=== PATIENT | male | born 1960 | race African-American/Black ===

== ENCOUNTER 2016-11-22 13:11 | Observation (INO) | payer OTHER ==
[2016-11-22] MEDS ORDERED: ASPIRIN 81 MG TABLET, CHEWABLE PO ONE (13:22)
[2016-11-22] MEDS ORDERED: IPRATROPIUM/ALBUTEROL 0.5-2.5 MG/3 ML AMPUL NEB ONE (14:08)
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
[2016-11-22 14:29] LABS: ABSOLUTE LYMPHOCYTES (AUTO) 0.8 10^3/uL (0.5-4.7); ABSOLUTE MONOCYTES (AUTO) 0.3 10^3/uL (0.1-1.4); ABSOLUTE NEUT (AUTO) 3.2 10^3/uL (1.7-8.2); BASOPHILS % (AUTO) 0.8 % (0-2); EOSINOPHILS % (AUTO) 0.6 % (0-6); HEMATOCRIT 42.1 % (37.9-51.0); HEMOGLOBIN 14.4 g/dL (13.5-17.0); HGB HCT DIFFERENCE 1.1; LYMPHOCYTES % (AUTO) 18.1 % (13-45); MEAN CORPUSCULAR HEMOGLOBIN 34.2 pg (27.0-33.4); MEAN CORPUSCULAR HGB CONC 34.1 g/dL (32.0-36.0); MEAN CORPUSCULAR VOLUME 101 fl (80-97); MONOCYTES % (AUTO) 7.1 % (3-13); RED BLOOD COUNT 4.19 10^6/uL (4.35-5.55); RED CELL DISTRIBUTION WIDTH 13.9 % (11.5-14.0); SEGMENTED NEUTROPHILS % (AUTO) 73.4 % (42-78); WHITE BLOOD COUNT 4.3 10^3/uL (4.0-10.5)
--- NOTE | 2016-11-22 14:35 | RADIOLOGY REPORT (SQ) ---
EXAM DESCRIPTION: CHEST SINGLE VIEW COMPLETED DATE/TIME: 11/22/2016 2:25 pm REASON FOR STUDY: chest pain sob COMPARISON: August 2015 EXAM PARAMETERS: NUMBER OF VIEWS: One view. TECHNIQUE: Single frontal radiographic view of the chest acquired. RADIATION DOSE: NA LIMITATIONS: None. FINDINGS: LUNGS AND PLEURA: No opacities, masses or pneumothorax. No pleural effusion. The previous ly described chronic appearing changes appears stable. MEDIASTINUM AND HILAR STRUCTURES: No masses. Contour normal. HEART AND VASCULAR STRUCTURES: Heart normal in size. Normal vasculature. BONES: No acute findings. HARDWARE: None in the chest. OTHER: No other significant finding. IMPRESSION: No significant interval change. No acute changes. Other findings as noted above TECHNICAL DOCUMENTATION: JOB ID: [id number]
[2016-11-22 14:47] LABS: ALANINE AMINOTRANSFERASE 58 U/L (21-72); ALBUMIN 4.5 g/dL (3.5-5.0); ALKALINE PHOSPHATASE 83 U/L (38-126); ANION GAP 13 (5-19); ASPARTATE AMINO TRANSFERASE 241 U/L (17-59); BILIRUBIN,DIRECT 0.6 mg/dL (0.0-0.4); BILIRUBIN,TOTAL 1.9 mg/dL (0.2-1.3); BLOOD UREA NITROGEN 6 mg/dL (7-20); CARBON DIOXIDE 31 mmol/L (22-30); CHLORIDE 92 mmol/L (98-107); CREATINE KINASE 223 U/L (55-170); CREATININE RESULT 0.63 mg/dL (0.52-1.25); GLUCOSE 72 mg/dL (75-110); POTASSIUM 4.1 mmol/L (3.6-5.0); SODIUM 136.2 mmol/L (137-145); TOTAL PROTEIN 8.8 g/dL (6.3-8.2)
[2016-11-22 15:16] LABS: TROPONIN I < 0.012 ng/mL
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
--- NOTE | 2016-11-22 19:53 | RADIOLOGY REPORT (SQ) ---
EXAM DESCRIPTION: CTA CHEST COMPLETED DATE/TIME: 11/22/2016 7:40 pm REASON FOR STUDY: chest pain shrotness of breath COMPARISON: 11/22/2016 TECHNIQUE: CT scan of the chest performed using helical scanning technique with dynamic intravenous contrast injection. Images reviewed with lung, soft tissue and bone windows. Reconstructed coronal and sagittal MPR images reviewed. Additional 3 dimensional post-processing performed to develop Maximal Intensity Projection images (MA P). All images stored on PACS. All CT scanners at this facility use dose modulation, iterative reconstruction, and/or weight based d osing when appropriate to reduce radiation dose to as low as reasonably achievable (ALARA). [facility]: Dose Right [facility]: CareDose [facility]: Dose Right [facility]: Teradose 4D [facility]: Healthcare Bluebook CONTRAST TYPE AND DOSE: contrast/concentration: Isovue 370.00 mg/ml; Total Contrast Delivered: 61.0 ml; Total Saline Delivered: 78.5 ml RENAL FUNCTION: GFR > 60. RADIATION DOSE: Up-to-date CT equipment and radiation dose reduction techniques were employed. CTDIv ol: 14.3 - 16.5 mGy. DLP: 653 mGy-cm. . LIMITATIONS: None. FINDINGS: LUNGS AND PLEURA: Stable degree of centrilobular emphysema most notably involving the uppe r lobes with is biapical pleural-parenchymal scarring. No consolidation, pleural effusion, or pneumo thorax. AORTA AND GREAT VESSELS: Atherosclerotic calcifications including coronary artery calcifications. No aneurysm or dissection. HEART: No pericardial effusion. PULMONARY ARTERIES: No emboli visualized in the main pulmonary arteries or the segmental branches. HILAR AND MEDIASTINAL STRUCTURES: No identified masses or abnormal nodes. HARDWARE: None in the chest. UPPER ABDOMEN: Hepatic steatosis. Stable nonobstructing left renal calculi. No acute findings. THYROID AND OTHER SOFT TISSUES: No masses. No adenopathy. BONES: No acute or significant finding. 3D MIPS: Confirm above findings. OTHER: No other significant finding. IMPRESSION: NO PULMONARY EMBOLI. CORONARY ARTERY DISEASE. EMPHYSEMA. ADDITIONAL CHRONIC CHANGES ABOVE. TECHNICAL DOCUMENTATION: JOB ID: [id number] Quality ID # [id number]: Final reports with documentation of one or more dose reduction techniques (e.g., Au tomated exposure control, adjustment of the mA and/or kV according to patient size, use of iterative reconstruction technique) 2010 [employer]- All Rights Reserved
--- NOTE | 2016-11-22 21:05 | EKG REPORT ---
SEVERITY:- ABNORMAL ECG - SINUS RHYTHM RIGHT ATRIAL ABNORMALITY LEFT VENTRICULAR HYPERTROPHY BORDERLINE PROLONGED QT INTERVAL : Confirmed by: Morales Hutton MD 22-Nov-2016 21:04:55
[2016-11-22] MEDS ORDERED: IPRATROPIUM/ALBUTEROL 0.5-2.5 MG/3 ML AMPUL NEB PRN (21:55)
[2016-11-22] MEDS ORDERED: NITROGLYCERIN 0.4 MG/TAB 25 TAB/BOTTLE SL PRN (21:56)
--- NOTE | 2016-11-22 22:57 | PDOC H&P ---
History of Present Illness Admission Date/PCP: 11/22/16 21:42 BRITNI CORAZON Patient complains of: Chest pain, Shortness of breath History of Present Illness: GURJIT LOUIS is a 56 year old male known to my practice who presented to the office as walk in but directed to ED due to complain of intermittent chest pain and worsening difficulty with breathing over last 1 week. Patient related his symptoms to exertion. He continue to smoke about 1PPD and drink alcohol excessively. His initial assessment in the ED was remarkable elevated total CK, alcohol and CTA showing emphysematous changes and coronary calcification. In view of his presentation and findings patient was advised hospitalization for further evaluation and management for possible ACS in view of the coronary calcification on CTA. Past Medical History Cardiac Medical History: Reports: Hypertension Denies: Pulmonary Embolism, Heart Murmur Pulmonary Medical History: Reports: Pneumonia Denies: Tuberculosis Neurological Medical History: Reports: Seizures - ETOH Withdrawals Psychiatric Medical History: Reports: Depression Past Surgical History Past Surgical History: Reports: Appendectomy, Orthopedic Surgery - arm surgery Social History Smoking Status: Current Every Day Smoker Cigarettes Packs Per Day: 30 Cigars Per Day: 0 Pipes Per Day: 0 Number of Years Smokin Last Time Smoked: today Frequency of Alcohol Use: Heavy Hx Recreational Drug Use: No Drugs: None Hx Prescription Drug Abuse: No - Advance Directive Resuscitation Status: Full Code Family History Family History: Reviewed & Not Pertinent Parental Family History Reviewed: Yes Children Family History Reviewed: Yes Sibling(s) Family History Reviewed.: Yes Medication/Allergy Home Medications: No Home Medications 11/22/16 Allergies/Adverse Reactions: Penicillins Allergy (Severe, Verified 04/21/16 09:07) Review of Systems Constitutional: ABSENT: chills, fever(s), headache(s), weight gain, weight loss Eyes: ABSENT: visual disturbances Ears: ABSENT: hearing changes Nose, Mouth, and Throat: ABSENT: as per HPI, headache(s), mouth pain, sore throat, vertigo, other Cardiovascular: PRESENT: chest pain, dyspnea on exertion. ABSENT: as per HPI, edema, orthropnea, palpitations, other Respiratory: PRESENT: dyspnea. ABSENT: as per HPI, cough, hemoptysis, sputum, other Gastrointestinal: ABSENT: abdominal pain, constipation, diarrhea, hematemesis, hematochezia, nausea, vomiting Genitourinary: ABSENT: dysuria, hematuria Musculoskeletal: ABSENT: joint swelling Integumentary: ABSENT: rash, wounds Neurological: ABSENT: abnormal gait, abnormal speech, confusion, dizziness, focal weakness, syncope Psychiatric: ABSENT: anxiety, depression, homidical ideation, suicidal ideation Endocrine: ABSENT: cold intolerance, heat intolerance, polydipsia, polyuria Hematologic/Lymphatic: ABSENT: easy bleeding, easy bruising, lymphadenopathy Allergic/Immunologic: ABSENT: as per HPI, seasonal rhinorrhea, other Physical Exam Vital Signs: Temp Pulse Resp BP Pulse Ox 98.5 F 93 19 158/75 H 97 11/22/16 13:29 11/22/16 13:29 11/22/16 21:01 11/22/16 20:01 11/22/16 21:01 General appearance: PRESENT: cooperative, mild distress - with post exetional wheezing, thin Head exam: PRESENT: atraumatic, normocephalic Eye exam: PRESENT: conjunctiva pink, EOMI, PERRLA. ABSENT: scleral icterus Ear exam: PRESENT: normal external ear exam Mouth exam: PRESENT: moist, tongue midline Teeth exam: PRESENT: poor dentation Throat exam: ABSENT: post pharyngeal erythema, tonsillar erythema, tonsillar exudate, tonsillogmegaly, other Neck exam: PRESENT: full ROM. ABSENT: carotid bruit, JVD, lymphadenopathy, thyromegaly Respiratory exam: PRESENT: decreased breath sounds, rhonchi, wheezes Cardiovascular exam: PRESENT: RRR. ABSENT: diastolic murmur, rubs, systolic murmur Pulses: PRESENT: normal dorsalis pedis pul, +2 pedal pulses bilateral Vascular exam: PRESENT: normal capillary refill GI/Abdominal exam: PRESENT: normal bowel sounds, soft. ABSENT: distended, guarding, mass, organolmegaly, rebound, tenderness Rectal exam: PRESENT: deferred Extremities exam: ABSENT: pedal edema Musculoskeletal exam: PRESENT: deformity - related to multiple joints involvement with arthritis Neurological exam: PRESENT: alert, awake, oriented to person, oriented to place , oriented to time, oriented to situation, CN II-XII grossly intact. ABSENT: motor sensory deficit Psychiatric exam: PRESENT: appropriate affect, normal mood. ABSENT: homicidal ideation, suicidal ideation Skin exam: PRESENT: dry, intact, warm. ABSENT: cyanosis, rash Results Impressions: Chest X-Ray 11/22/16 13:49 IMPRESSION: No significant interval change. No acute changes. Other findings as noted above Chest/Abdomen CTA 11/22/16 18:46 IMPRESSION: NO PULMONARY EMBOLI. CORONARY ARTERY DISEASE. EMPHYSEMA. ADDITIONAL CHRONIC CHANGES ABOVE. Assessment & Plan - Diagnosis (1) Chest pain with high risk of acute coronary syndrome Is this a current diagnosis for this admission?: YesPlan: See admitting physician orders. (2) Abnormal cardiac enzyme level Is this a current diagnosis for this admission?: YesPlan: See admitting physician orders. (3) Cigarette nicotine dependence Qualifiers: Substance use status: other nicotine-induced disorder Qualified Code (s): F17.218 - Nicotine dependence, cigarettes, with other nicotine-induced disorders Is this a current diagnosis for this admission?: YesPlan: See admitting physician orders. (4) COPD (chronic obstructive pulmonary disease) Qualifiers: COPD type: unspecified COPD Qualified Code(s): J44.9 - Chronic obstructive pulmonary disease, unspecified Is this a current diagnosis for this admission?: YesPlan: See admitting physician orders. (5) Low back pain Qualifiers: Chronicity: chronic Is this a current diagnosis for this admission?: YesPlan: See admitting physician orders. (6) Osteoarthritis Qualifiers: Osteoarthritis location: multiple joints Osteoarthritis type: unspecified Qualified Code(s): M15.9 - Polyosteoarthritis, unspecified Is this a current diagnosis for this admission?: YesPlan: See admitting physician orders. - Time Time Spent: 50 to 70 Minutes Medications reviewed and adjusted accordingly: Yes Anticipated discharge: Home Within: Other - Inpatient Certification Post Hospital Care: D/C [employer] Documentation - Plan Summary Plan Summary: See admitting physician orders.
[2016-11-22] MEDS ORDERED: VALSARTAN 160 MG TABLET PO ONE (23:15)
[2016-11-22 23:32] LABS: CREATINE KINASE MB 2.76 ng/mL (<4.55); TROPONIN I 0.016 ng/mL
[2016-11-23 04:45] LABS: ABSOLUTE EOSINOPHILS # (AUTO) 0.1 10^3/uL (0.0-0.6); ABSOLUTE LYMPHOCYTES (AUTO) 0.6 10^3/uL (0.5-4.7); ABSOLUTE MONOCYTES (AUTO) 0.3 10^3/uL (0.1-1.4); ABSOLUTE NEUT (AUTO) 2.2 10^3/uL (1.7-8.2); BASOPHILS % (AUTO) 0.8 % (0-2); EOSINOPHILS % (AUTO) 2.1 % (0-6); HEMATOCRIT 43.3 % (37.9-51.0); HEMOGLOBIN 14.5 g/dL (13.5-17.0); HGB HCT DIFFERENCE 0.2; LYMPHOCYTES % (AUTO) 18.7 % (13-45); MEAN CORPUSCULAR HEMOGLOBIN 33.8 pg (27.0-33.4); MEAN CORPUSCULAR HGB CONC 33.6 g/dL (32.0-36.0); MEAN CORPUSCULAR VOLUME 101 fl (80-97); RED CELL DISTRIBUTION WIDTH 13.4 % (11.5-14.0); SEGMENTED NEUTROPHILS % (AUTO) 69.4 % (42-78); WHITE BLOOD COUNT 3.2 10^3/uL (4.0-10.5)
[2016-11-23 04:48] LABS: ALANINE AMINOTRANSFERASE 56 U/L (21-72); ALBUMIN 4.5 g/dL (3.5-5.0); ALKALINE PHOSPHATASE 79 U/L (38-126); ANION GAP 13 (5-19); ASPARTATE AMINO TRANSFERASE 149 U/L (17-59); BILIRUBIN,DIRECT 0.4 mg/dL (0.0-0.4); BILIRUBIN,TOTAL 2.3 mg/dL (0.2-1.3); BLOOD UREA NITROGEN 5 mg/dL (7-20); CALCIUM 9.6 mg/dL (8.4-10.2); CARBON DIOXIDE 27 mmol/L (22-30); CHLORIDE 92 mmol/L (98-107); CREATINE KINASE 446 U/L (55-170); CREATININE RESULT 0.55 mg/dL (0.52-1.25); GLUCOSE 90 mg/dL (75-110); POTASSIUM 3.8 mmol/L (3.6-5.0); SODIUM 131.5 mmol/L (137-145); TOTAL PROTEIN 8.6 g/dL (6.3-8.2); TRIGLYCERIDES 146 mg/dL (<150)
[2016-11-23 04:58] LABS: DIRECT LDL 67 mg/dL (<100)
[2016-11-23 04:59] LABS: CREATINE KINASE MB 4.66 ng/mL (<4.55); TROPONIN I 0.015 ng/mL
[2016-11-23 05:00] LABS: Direct HDL 167 mg/dL (>40)
[2016-11-23] MEDS: LANSOPRAZOLE 30 MG TAB.RAP.DR PO SCH (05:03)
[2016-11-23] MEDS ORDERED: ONDANSETRON HCL INJ/PF 4 MG/2 ML SDV IV PRN (06:22)
[2016-11-23 12:16] LABS: CREATINE KINASE MB 3.77 ng/mL (<4.55)
[2016-11-23 12:25] LABS: TROPONIN I < 0.012 ng/mL
[2016-11-23] MEDS ORDERED: REGADENOSON INJ 0.4 MG/5 ML DISP.SYRIN IV ONE (12:31)
--- NOTE | 2016-11-23 12:31 | XCELERA REPORT ---
[address] [address] Transthoracic Echocardiogram Report Name: GURJIT LOUIS Age: 56 yrs Gender: Male : 1960 Patient Status: Inpatient Patient Location: [id number]\A Study Date: 11/23/2016 10:05 AM Procedure: A two-dimensional transthoracic echocardiogram with color flow and Doppler was performed. Study Quality: Fair. Reason For Study: CHEST PAIN History: CHEST PAIN. Ordering Physician: BRITNI CHANDRA Performed By: Mya Rodriguez Interpretation Summary The left ventricle is normal in size. There is normal left ventricular wall thickness. LV EF is > than 55% Left ventricular systolic function is normal. The left ventricular wall motion is normal. The right ventricle is normal in size and function. The left atrial size is normal. There is no evidence of mitral valve prolapse. There is no vegetation seen on the mitral valve. There is no mitral valve stenosis. There is no mitral regurgitation noted. There is no aortic valve stenosis There is no LVOT obstruction. No aortic regurgitation is present. There is no tricuspid stenosis. There is a trace amount of tricuspid regurgitation Right ventricular systolic pressure is normal. RVSP is 26 mm of Hg , with RA mean of 5. There is no pulmonic valvular regurgitation. There is no pulmonic valvular stenosis. The aortic root is normal size. There is no pericardial effusion. MMode/2D Measurements \T\ Calculations RVDd: 2.5 cm LVIDd: 4.5 cm FS: 31.6 % Ao root diam: 3.1 cm IVSd: 0.95 cm LVIDs: 3.1 cm EDV(Teich): 94.1 ml Ao root area: 7.4 cm2 LVPWd: 0.93 cm ESV(Teich): 38.0 ml EF(Teich): 59.6 % Doppler Measurements \T\ Calculations MV E max aline: MV dec slope: LV V1 max PG: PA V2 max: 51.8 cm/sec 423.9 cm/sec2 5.4 mmHg 85.5 cm/sec MV A max aline: MV dec time: LV V1 max: PA max P.8 cm/sec 0.12 sec 116.6 cm/sec 2.9 mmHg MV E/A: 1.4 TR max aline: 228.4 cm/sec TR max P.9 mmHg Left Ventricle The left ventricle is normal in size. There is normal left ventricular wall thickness. LV EF is > than 55%. Left ventricular systolic function is normal. Doppler measurements suggest normal left ventricular diastolic function. The left ventricular wall motion is normal. There is no thrombus. There is no ventricular septal defect visualized. Right Ventricle The right ventricle is normal in size and function. Atria The right atrium is normal. The left atrial size is normal. The interatrial septum is intact with no evidence for an atrial septal defect. Mitral Valve There is no evidence of mitral valve prolapse. There is no vegetation seen on the mitral valve. There is no mitral valve stenosis. There is no mitral regurgitation noted. Aortic Valve The aortic valve is trileaflet. The aortic valve opens well. There is no aortic valvular vegetation. There is no aortic valve stenosis. There is no LVOT obstruction. No aortic regurgitation is present. Tricuspid Valve There is no tricuspid stenosis. There is a trace amount of tricuspid regurgitation. Right ventricular systolic pressure is normal. RVSP is 26 mm of Hg , with RA mean of 5. Pulmonic Valve There is no pulmonic valvular stenosis. There is no pulmonic valvular regurgitation. Great Vessels The aortic root is normal size. Effusions There is no pericardial effusion. : BRITNI CHANDRA > Lisa Luna
--- NOTE | 2016-11-23 12:38 | DRAGON STRESS TEST REPORT ---
Intravenous LexiScan Cardiolite stress test using single photon emmision computerized tomographic. Date of procedure: 11/23/2016. Ordering Provider: Dr. Foster. Patient Status.: In Patient. Indication: Chest Pain, and shortness of breath.. Coronary risk factors: Age, hypertension, and tobacco abuse disorder. Resting EKG: Sinus Rhythm. LVH by voltage. Stress EKG: No changes of ischemia. The patient had no chest pain or discomfort and there were no arrhythmias seen. Reason for termination: Protocol. Conclusions: Normal EKG and hemodynamic response to IV LexiScan. Nuclear data: At rest the patient was given 10.70 millicuries of technetium 99 sestamibi injected intravenously. As per protocol rest non gated SPECT images were obtained. Subsequently the patient was given intravenous LexiScan at a dose of 0.4 mg in 5 mL intravenously, followed by flush with normal saline. Subsequently the stress dose of 32.1 millicuries of technetium 99 sestamibi was injected intravenously. As per protocol stress gated images were obtained. Next Nuclear interpretation: Review of images showed that all segments of the myocardium had normal perfusion at rest, and normal perfusion post stress with IV LexiScan. All segments of the myocardium had normal motion, contraction, and thickening by gated study. T. I D. ratio was normal at 1.10 .Computer read rest, and stress left ventricular ejection fraction were 47 %, and 45 % respectively. Visually both the stress and rest ejection fractions were normal, and greater than 55%. Conclusions: 1. There is no scintigraphic evidence of LexiScan induced myocardial ischemia. 2. There is no scintigraphic evidence of myocardial infarction/scar. Recommendations: Aggressive risk factor modification, and treating the underlying co- morbidities MTDD
[2016-11-23] MEDS: ASPIRIN 81 MG TABLET, ENT COATED PO SCH (12:53)
[2016-11-23] MEDS: CARVEDILOL 3.125 MG TABLET PO SCH ×2 (12:54→21:55)
[2016-11-23] MEDS: VALSARTAN 160 MG TABLET PO SCH (12:55)
[2016-11-23] MEDS: THIAMINE HCL 100 MG TABLET PO SCH (12:55)
[2016-11-23] MEDS: MULTIVIT-STRESS FORMULA/ZINC TABLET PO SCH (12:56)
[2016-11-23] MEDS: ENOXAPARIN SODIUM INJ 40 MG/0.4 ML DISP.SYRIN SUBCUT SCH (12:57)
[2016-11-23] MEDS: NORMAL SALINE 1000 ML 1,000 ML IV PRN (17:50)
--- NOTE | 2016-11-23 19:01 | PDOC PROGRESS REPORT ---
Subjective Progress Note for:: 11/23/16 Subjective:: Patient continue to experience exertional shortness of breath. Echocardiogram and pharmacologic stress tests were both normal findings today. I did discuss case with Dr Lopez. Patient denied any significant chest pain. He has episode of nausea and vomiting earlier today that resolved with administration of Zofran without recurrence. No fever or chills. Physical Exam Vital Signs: Temp Pulse Resp BP Pulse Ox 98.7 F 91 16 145/84 H 99 11/23/16 15:49 11/23/16 15:49 11/23/16 15:49 11/23/16 15:49 11/23/16 15:49 Intake & Output 11/22/16 11/23/16 11/24/16 06:59 06:59 06:59 Intake Total 451 1260 Output Total 700 200 Balance -249 1060 General appearance: PRESENT: no acute distress, cooperative Head exam: PRESENT: atraumatic, normocephalic Eye exam: PRESENT: conjunctiva pink, EOMI, PERRLA. ABSENT: scleral icterus Mouth exam: PRESENT: moist Respiratory exam: PRESENT: clear to auscultation cm - expiratory phase, decreased breath sounds, rhonchi, wheezes - faintly audible Cardiovascular exam: PRESENT: RRR. ABSENT: diastolic murmur, rubs, systolic murmur GI/Abdominal exam: PRESENT: normal bowel sounds, soft. ABSENT: distended, guarding, mass, organolmegaly, rebound, tenderness Extremities exam: ABSENT: pedal edema Musculoskeletal exam: PRESENT: deformity - related to multiple jpints involvment with arthritis Neurological exam: PRESENT: alert, awake, oriented to person, oriented to place , oriented to time, oriented to situation, CN II-XII grossly intact. ABSENT: motor sensory deficit Psychiatric exam: PRESENT: appropriate affect, normal mood. ABSENT: homicidal ideation, suicidal ideation Skin exam: PRESENT: dry, intact, warm. ABSENT: cyanosis, rash Results Laboratory Results: 11/23/16 04:13 11/23/16 04:13 11/23/16 11/23/16 04:13 04:13 WBC 3.2 L RBC 4.30 L Hgb 14.5 Hct 43.3 MCV 101 H MCH 33.8 H MCHC 33.6 RDW 13.4 Plt Count 102 L Seg Neutrophils % 69.4 Lymphocytes % 18.7 Monocytes % 9.0 Eosinophils % 2.1 Basophils % 0.8 Absolute Neutrophils 2.2 Absolute Lymphocytes 0.6 Absolute Monocytes 0.3 Absolute Eosinophils 0.1 Absolute Basophils 0.0 Sodium 131.5 L Potassium 3.8 Chloride 92 L Carbon Dioxide 27 Anion Gap 13 BUN 5 L Creatinine 0.55 Est GFR ( Amer) > 60 Est GFR (Non-Af Amer) > 60 Glucose 90 Calcium 9.6 Total Bilirubin 2.3 H AST 149 H ALT 56 Alkaline Phosphatase 79 Total Protein 8.6 H Albumin 4.5 Triglycerides 146 Cholesterol 247.10 H LDL Cholesterol Direct 67 VLDL Cholesterol 29.0 HDL Cholesterol 167 11/22/16 11/22/16 11/23/16 22:25 22:25 04:13 Creatine Kinase 300 H 446 H CK-MB (CK-2) 2.76 Troponin I 0.016 11/23/16 11/23/16 11/23/16 04:13 11:27 11:27 Creatine Kinase 405 H CK-MB (CK-2) 4.66 H 3.77 Troponin I 0.015 < 0.012 Impressions: Chest X-Ray 11/22/16 13:49 IMPRESSION: No significant interval change. No acute changes. Other findings as noted above Chest/Abdomen CTA 11/22/16 18:46 IMPRESSION: NO PULMONARY EMBOLI. CORONARY ARTERY DISEASE. EMPHYSEMA. ADDITIONAL CHRONIC CHANGES ABOVE. Assessment & Plan - Diagnosis (1) Chest pain with high risk of acute coronary syndrome Is this a current diagnosis for this admission?: YesPlan: Less likely cardiac source with stress test findings. Consideration include musculoskeletal particularly with worsening elevation of total CK level. (2) Abnormal cardiac enzyme level Is this a current diagnosis for this admission?: YesPlan: Very suggestive of muscle injury but not to the level of rhbadomyolysis. Continue IV fluid hydration. His elevated d-Dimer may be consequence of cigarette smoking and Alcohol abuse. (3) Cigarette nicotine dependence Qualifiers: Substance use status: other nicotine-induced disorder Qualified Code (s): F17.218 - Nicotine dependence, cigarettes, with other nicotine-induced disorders Is this a current diagnosis for this admission?: YesPlan: Consult teaching nurse on smoking cessation counseling. (4) COPD (chronic obstructive pulmonary disease) Qualifiers: COPD type: unspecified COPD Qualified Code(s): J44.9 - Chronic obstructive pulmonary disease, unspecified Is this a current diagnosis for this admission?: YesPlan: Start on Symbicort 2 puffs p.o bid. Maintain on Duoneb nebulizer therapy. (5) Low back pain Qualifiers: Chronicity: chronic Is this a current diagnosis for this admission?: YesPlan: See attending physician orders. (6) Osteoarthritis Qualifiers: Osteoarthritis location: multiple joints Osteoarthritis type: unspecified Qualified Code(s): M15.9 - Polyosteoarthritis, unspecified Is this a current diagnosis for this admission?: YesPlan: See attending physician orders. (7) Essential hypertension Is this a current diagnosis for this admission?: YesPlan: See attending physician orders. - Time Time Spent with patient: 25-34 minutes Medications reviewed and adjusted accordingly: Yes Anticipated discharge: Home Within: within 24 hours - Plan Summary Plan Summary: See attending physician orders.
--- NOTE | 2016-11-23 19:09 | EKG REPORT ---
SEVERITY:- ABNORMAL ECG - SINUS RHYTHM LEFT VENTRICULAR HYPERTROPHY ST ELEVATION SUGGESTS HYPERKALEMIA PROLONGED QT INTERVAL : Confirmed by: Morales Hutton MD 23-Nov-2016 19:09:03
[2016-11-23] MEDS: BUDESONIDE/FORMOTEROL 160-4.5 MCG 60 PUFF/6 GM MDI IH SCH (21:55)
[2016-11-23] MEDS ORDERED: ATORVASTATIN CALCIUM 20 MG TABLET PO SCH (22:00)
[2016-11-24] MEDS: LANSOPRAZOLE 30 MG TAB.RAP.DR PO SCH (05:57)
[2016-11-24] MEDS: MULTIVIT-STRESS FORMULA/ZINC TABLET PO SCH (11:27)
[2016-11-24] MEDS: VALSARTAN 160 MG TABLET PO SCH (11:27)
[2016-11-24] MEDS: ASPIRIN 81 MG TABLET, ENT COATED PO SCH (11:28)
[2016-11-24] MEDS: THIAMINE HCL 100 MG TABLET PO SCH (11:28)
[2016-11-24] MEDS: CARVEDILOL 3.125 MG TABLET PO SCH (11:28)
[2016-11-24] MEDS: NORMAL SALINE 1000 ML 1,000 ML IV PRN (11:28)
[2016-11-24] MEDS: BUDESONIDE/FORMOTEROL 160-4.5 MCG 60 PUFF/6 GM MDI IH SCH (11:29)
[2016-11-24] MEDS: ENOXAPARIN SODIUM INJ 40 MG/0.4 ML DISP.SYRIN SUBCUT SCH (11:29)
[2016-11-24 18:09] LABS: ALANINE AMINOTRANSFERASE 61 U/L (21-72); ALBUMIN 4.1 g/dL (3.5-5.0); ALKALINE PHOSPHATASE 65 U/L (38-126); ANION GAP 11 (5-19); ASPARTATE AMINO TRANSFERASE 133 U/L (17-59); BILIRUBIN,DIRECT 0.3 mg/dL (0.0-0.4); BILIRUBIN,TOTAL 1.3 mg/dL (0.2-1.3); BLOOD UREA NITROGEN 12 mg/dL (7-20); CALCIUM 9.9 mg/dL (8.4-10.2); CARBON DIOXIDE 26 mmol/L (22-30); CHLORIDE 98 mmol/L (98-107); CREATINE KINASE 203 U/L (55-170); GLUCOSE 82 mg/dL (75-110); POTASSIUM 4.5 mmol/L (3.6-5.0); SODIUM 135.1 mmol/L (137-145); TOTAL PROTEIN 7.9 g/dL (6.3-8.2)
[2016-11-24 18:21] LABS: CREATINE KINASE MB 1.56 ng/mL (<4.55)
[2016-11-24 18:25] LABS: TROPONIN I < 0.012 ng/mL
--- NOTE | 2016-11-24 19:26 | PDOC DISCHARGE SUMMARY ---
General - Admit/Disc Date/PCP Admission Date/Primary Care Provider: 11/22/16 21:42 BRITNI CORAZON Discharge Date: 11/24/16 - Discharge Diagnosis (1) Chest pain with high risk of acute coronary syndrome Is this a current diagnosis for this admission?: Yes (2) Abnormal cardiac enzyme level Is this a current diagnosis for this admission?: Yes (3) Cigarette nicotine dependence Is this a current diagnosis for this admission?: Yes (4) COPD (chronic obstructive pulmonary disease) Is this a current diagnosis for this admission?: Yes (5) Low back pain Is this a current diagnosis for this admission?: Yes (6) Osteoarthritis Is this a current diagnosis for this admission?: Yes (7) Essential hypertension Is this a current diagnosis for this admission?: Yes - Additional Information Resuscitation Status: Full Code Discharge Diet: Cardiac Discharge Activity: Activity As Tolerated Home Medications: Aspirin [Ecotrin 81 mg EC Tablet] 81 mg PO DAILY #30 tabec 11/24/16 Atorvastatin Calcium [Lipitor 20 mg Tablet] 20 mg PO QHS #30 tablet 11/24/16 Budesonide/Formoterol Fumarate [Symbicort HFA 160-4.5 mcg Inhaler 6 gm] 2 puff IH Q12 #1 inhaler 11/24/16 Carvedilol [Coreg 3.125 mg Tablet] 3.125 mg PO Q12 #60 tablet 11/24/16 Ipratropium/Albuterol Sulfate [Combivent Respimat 4 gm Mdi] 1 puff IH Q6 #1 aer.w.adap 11/24/16 Multivit-Stress Formula/Zinc [Zbec Tablet] 1 tab PO DAILY #30 tablet 11/24/16 Nitroglycerin [Nitrostat 0.4 mg (1/150 Gr) Tabs 25/Bottle] 1 tab SL Q5MP PRN #0 bottle 11/24/16 Thiamine HCl [Thiamine 100 mg Tablet] 100 mg PO DAILY #30 tablet 11/24/16 Valsartan [Diovan 160 mg Tablet] 160 mg PO DAILY #30 tablet 11/24/16 History of Present Illness History of Present Illness: GURJIT LOUIS is a 56 year old male known to my practice who presented to the office as walk in but directed to ED due to complain of intermittent chest pain and worsening difficulty with breathing over last 1 week. Patient related his symptoms to exertion. He continue to smoke about 1PPD and drink alcohol excessively. His initial assessment in the ED was remarkable elevated total CK, alcohol and CTA showing emphysematous changes and coronary calcification. In view of his presentation and findings patient was advised hospitalization for further evaluation and management for possible ACS in view of the coronary calcification on CTA. Hospital Course Hospital Course: His echocardiogram and pharmacologic stress tests were reported to be within normal limits by Dr Lopez, commercial ocean clammer. His exertional dyspnea did persist but improved with bronchodilators usage. His blood pressure was elevated necessitating anti hypertensive medications. Patient elevated cardiac enzymes, particularly total CK was suggestive of muscle injury. There is significant improvement in his level today and his CK-MB and Troponin I are within normal limits. Patient has significant history of alcohol abuse and cigarette smoking. I had extensive discussion with him at bedside regarding deleterious effect of this lifestyle to his health outcome. Smoking cessation and alcohol abuse cessation counseling was done before his discharge during my bedside consultation. More than 50% of my 40 minutes was spent in his post discharge care coordination and counseling. Physical Exam Vital Signs: Temp Pulse Resp BP Pulse Ox 99.0 F 80 16 138/76 H 95 11/24/16 16:00 11/24/16 16:38 11/24/16 16:38 11/24/16 16:00 11/24/16 16:38 Intake & Output 11/23/16 11/24/16 11/25/16 06:59 06:59 06:59 Intake Total 451 2333 1709 Output Total 700 350 700 Balance -249 1983 1009 Physical Exam: General appearance: PRESENT: no acute distress, cooperative Head exam: PRESENT: atraumatic, normocephalic Eye exam: PRESENT: conjunctiva pink, EOMI, PERRLA. ABSENT: scleral icterus Mouth exam: PRESENT: moist Respiratory exam: PRESENT: clear to auscultation cm, rhonchi, wheezes - faintly audible Cardiovascular exam: PRESENT: RRR. ABSENT: diastolic murmur, rubs, systolic murmur GI/Abdominal exam: PRESENT: normal bowel sounds, soft. ABSENT: distended, guarding, mass, organomegaly, rebound, tenderness Extremities exam: ABSENT: pedal edema Musculoskeletal exam: PRESENT: deformity - related to multiple jpints involvment with arthritis Neurological exam: PRESENT: alert, awake, oriented to person, oriented to place , oriented to time, oriented to situation, CN II-XII grossly intact. ABSENT: motor sensory deficit Psychiatric exam: PRESENT: appropriate affect, normal mood. ABSENT: homicidal ideation, suicidal ideation Skin exam: PRESENT: dry, intact, warm. ABSENT: cyanosis, rash Results Laboratory Results: 11/23/16 04:13 11/24/16 17:42 11/24/16 17:42 Sodium 135.1 L Potassium 4.5 Chloride 98 Carbon Dioxide 26 Anion Gap 11 BUN 12 Creatinine 0.70 Est GFR ( Amer) > 60 Est GFR (Non-Af Amer) > 60 Glucose 82 Calcium 9.9 Total Bilirubin 1.3 AST 133 H ALT 61 Alkaline Phosphatase 65 Total Protein 7.9 Albumin 4.1 11/22/16 11/22/16 11/23/16 22:25 22:25 04:13 Creatine Kinase 300 H 446 H CK-MB (CK-2) 2.76 Troponin I 0.016 11/23/16 11/23/16 11/23/16 04:13 11:27 11:27 Creatine Kinase 405 H CK-MB (CK-2) 4.66 H 3.77 Troponin I 0.015 < 0.012 11/24/16 11/24/16 17:42 17:42 Creatine Kinase 203 H CK-MB (CK-2) 1.56 Troponin I < 0.012 Impressions: Chest X-Ray 11/22/16 13:49 IMPRESSION: No significant interval change. No acute changes. Other findings as noted above Chest/Abdomen CTA 11/22/16 18:46 IMPRESSION: NO PULMONARY EMBOLI. CORONARY ARTERY DISEASE. EMPHYSEMA. ADDITIONAL CHRONIC CHANGES ABOVE. Qualifiers PATEINT BEING DISCHARGED WITH ANY OF THE FOLLOWING DIAGNOSIS?: No Plan Discharge Plan: Discharge home today. Follow up in the office as instructed upon discharge. Time Spent: Greater than 30 Minutes
[2016-11-24 19:55] VITALS: BP 138/76
== END 2016-11-24 21:00 | disposition home or self-care (01) ==
LOC: ER 13:11 → UNDOADMOB 20:27 → EH 20:27 → 4N 22:12
PROVIDERS: ADMIT Internal Medicine Geriatric Medicine; ATTEND Internal Medicine Geriatric Medicine
PROC: 3E0F7GC Introduction of Other Therapeutic Substance into Respiratory Tract, Via Natural or Artificial Opening (ICD-10-PCS; principal; 2016-11-22)
DX: R07.9 Chest pain, unspecified (principal); R74.8 Abnormal levels of other serum enzymes; F17.218 Nicotine dependence, cigarettes, with other nicotine-induced disorders; J44.9 Chronic obstructive pulmonary disease, unspecified; G89.29 Other chronic pain; M54.5 Low back pain; I10 Essential (primary) hypertension; M15.9 Polyosteoarthritis, unspecified; I25.10 Atherosclerotic heart disease of native coronary artery without angina pectoris; R11.2 Nausea with vomiting, unspecified; F10.10 Alcohol abuse, uncomplicated; Y90.2 Blood alcohol level of 40-59 mg/100 ml; Z79.82 Long term (current) use of aspirin; Z79.899 Other long term (current) drug therapy; Z79.51 Long term (current) use of inhaled steroids; Z82.49 Family history of ischemic heart disease and other diseases of the circulatory system; Z87.81 Personal history of (healed) traumatic fracture; Z87.01 Personal history of pneumonia (recurrent)
CPT/HCPCS: 93005 ×2; 94640 ×2; 99285; 36415 ×3; 82553 ×3; 80307; 82550 ×3; 83690; 85025 ×2; 80053 ×3; 84484 ×3; 85379; 80061; 93306; 93017; 71010; 78452; 71275; 93010 ×2; A9500; J2785; J3490 ×3; J1650; J7030 ×2; J7620 ×2; Q9969; G0378; G0379

== ENCOUNTER → 2016-12-01 | Outpatient (CLI) | payer OTHER ==
[2016-12-01 13:49] LABS: ABSOLUTE BASOPHILS # (AUTO) 0.1 10^3/uL (0.0-0.2); ABSOLUTE EOSINOPHILS # (AUTO) 0.1 10^3/uL (0.0-0.6); ABSOLUTE LYMPHOCYTES (AUTO) 1.7 10^3/uL (0.5-4.7); ABSOLUTE MONOCYTES (AUTO) 0.7 10^3/uL (0.1-1.4); ABSOLUTE NEUT (AUTO) 2.1 10^3/uL (1.7-8.2); BASOPHILS % (AUTO) 2.3 % (0-2); EOSINOPHILS % (AUTO) 1.7 % (0-6); HEMATOCRIT 39.7 % (37.9-51.0); HEMOGLOBIN 13.4 g/dL (13.5-17.0); HGB HCT DIFFERENCE 0.5; LYMPHOCYTES % (AUTO) 36.7 % (13-45); MEAN CORPUSCULAR HEMOGLOBIN 34.7 pg (27.0-33.4); MEAN CORPUSCULAR HGB CONC 33.8 g/dL (32.0-36.0); MEAN CORPUSCULAR VOLUME 103 fl (80-97); MONOCYTES % (AUTO) 15.1 % (3-13); RED BLOOD COUNT 3.87 10^6/uL (4.35-5.55); RED CELL DISTRIBUTION WIDTH 13.9 % (11.5-14.0); SEGMENTED NEUTROPHILS % (AUTO) 44.2 % (42-78); WHITE BLOOD COUNT 4.7 10^3/uL (4.0-10.5)
[2016-12-01 13:53] LABS: URINE BARBITURATES SCREEN NEGATIVE; URINE METHADONE SCREEN NEGATIVE; URINE OPIATES LOW NEGATIVE; URINE PHENCYCLIDINE SCREEN NEGATIVE
[2016-12-01 14:02] LABS: ALANINE AMINOTRANSFERASE 39 U/L (21-72); ALCOHOL 166 mg/dL (NONE DETECTED); ALKALINE PHOSPHATASE 66 U/L (38-126); ANION GAP 14 (5-19); ASPARTATE AMINO TRANSFERASE 49 U/L (17-59); BILIRUBIN,DIRECT 0.3 mg/dL (0.0-0.4); BILIRUBIN,TOTAL 1.2 mg/dL (0.2-1.3); BLOOD UREA NITROGEN 12 mg/dL (7-20); CALCIUM 9.8 mg/dL (8.4-10.2); CARBON DIOXIDE 24 mmol/L (22-30); CHLORIDE 103 mmol/L (98-107); CREATININE RESULT 0.66 mg/dL (0.52-1.25); GLUCOSE 72 mg/dL (75-110); POTASSIUM 4.8 mmol/L (3.6-5.0); SODIUM 140.6 mmol/L (137-145)
--- NOTE | 2016-12-03 05:57 | EKG REPORT ---
SEVERITY:- ABNORMAL ECG - SINUS RHYTHM RIGHT ATRIAL ABNORMALITY CONSIDER LEFT VENTRICULAR HYPERTROPHY ANTERIOR ST ELEVATION, PROBABLY DUE TO LVH : Confirmed by: Lisa Luna MD 03-Dec-2016 05:56:37
== END ==
LOC: LAB 13:14
PROVIDERS: ATTEND Internal Medicine Geriatric Medicine
DX: R00.2 Palpitations (principal); F10.20 Alcohol dependence, uncomplicated
CPT/HCPCS: 36415; 80053; 80307; 85025; 93005; 93010

== ENCOUNTER 2017-02-02 12:36 | Emergency (ER) | payer OTHER ==
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
[2017-02-02] MEDS ORDERED: OXYCODONE-ACETAMINOPHEN 5-325 MG TABLET PO ONE (19:21)
[2017-02-02 20:02] VITALS: BP 120/59
== END 2017-02-02 21:00 | disposition short-term general hospital (02) ==
LOC: ER 12:36
DX: T23.202A Burn of second degree of left hand, unspecified site, initial encounter (principal); T23.201A Burn of second degree of right hand, unspecified site, initial encounter; F17.200 Nicotine dependence, unspecified, uncomplicated; X08.8XXA Exposure to other specified smoke, fire and flames, initial encounter
CPT/HCPCS: 99285

== ENCOUNTER 2018-10-26 10:50 | Emergency (ER) | payer SELFPAY ==
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
--- NOTE | 2018-10-26 11:40 | RADIOLOGY REPORT (SQ) ---
EXAM DESCRIPTION: CHEST 2 VIEWS COMPLETED DATE/TIME: 10/26/2018 11:22 am REASON FOR STUDY: cough congestion hx copd COMPARISON: CT chest 11/22/2016 Chest films 11/22/2016, 08/21/2015 EXAM PARAMETERS: NUMBER OF VIEWS: two views TECHNIQUE: Digital Frontal and Lateral radiographic views of the chest acquired. RADIATION DOSE: NA LIMITATIONS: none FINDINGS: LUNGS AND PLEURA: Lungs are hyperinflated from obstructive disease. Stable biapical pleur al-parenchymal scarring. No acute infiltrates. No pleural effusion. No pneumothorax. MEDIASTINUM AND HILAR STRUCTURES: No masses or contour abnormalities. HEART AND VASCULAR STRUCTURES: Heart normal size. No evidence for failure. BONES: No acute findings. Multiple old healed left rib fractures and right lower lateral rib fractur es HARDWARE: None in the chest. OTHER: No other significant finding. IMPRESSION: Obstructive lung disease with hyperinflation and biapical pleuroparenchymal scarring Old bilateral rib fractures TECHNICAL DOCUMENTATION: JOB ID: [id number] [employer]- All Rights Reserved Reading location - IP/workstation name: [email or web address]
--- NOTE | 2018-10-26 11:41 | RADIOLOGY REPORT (SQ) ---
EXAM DESCRIPTION: CT HEAD WITHOUT COMPLETED DATE/TIME: 10/26/2018 11:28 am REASON FOR STUDY: severe headache COMPARISON: None. TECHNIQUE: Axial images acquired through the brain without intravenous contrast. Images reviewed wi th bone, brain and subdural windows. Additional sagittal and coronal reconstructions were generated. Images stored on PACS. All CT scanners at this facility use dose modulation, iterative reconstruction, and/or weight based d osing when appropriate to reduce radiation dose to as low as reasonably achievable (ALARA). [facility]: Dose Right [facility]: CareDose [facility]: Dose Right [facility]: Teradose 4D [facility]: Dropost.it RADIATION DOSE: CT Rad equipment meets quality standard of care and radiation dose reduction techniq ues were employed. CTDIvol: 53.2 mGy. DLP: 1044 mGy-cm. mGy. LIMITATIONS: None. FINDINGS: VENTRICLES: Normal size and contour. CEREBRUM: No masses. No hemorrhage. No midline shift. No evidence for acute infarction. Normal gra y/white matter differentiation. No areas of low density in the white matter. CEREBELLUM: No masses. No hemorrhage. No alteration of density. No evidence for acute infarction. EXTRAAXIAL SPACES: No fluid collections. No masses. ORBITS AND GLOBE: No intra- or extraconal masses. Normal contour of globe without masses. CALVARIUM: No fracture. PARANASAL SINUSES: No fluid or mucosal thickening. SOFT TISSUES: No mass or hematoma. OTHER: No other significant finding. IMPRESSION: No acute intracranial pathology. No noncontrast CT findings to explain headache. EVIDENCE OF ACUTE STROKE: NO. COMMENT: Quality ID # [id number]: Final reports with documentation of one or more dose reduction techniques (e.g., Automated exposure control, adjustment of the mA and/or kV according to patient size, use of iterative reconstruction technique) TECHNICAL DOCUMENTATION: JOB ID: [id number] [employer]- All Rights Reserved Reading location - IP/workstation name: [email or web address]
[2018-10-26 11:50] LABS: ABSOLUTE BASOPHILS # (AUTO) 0.1 10^3/uL (0.0-0.2); ABSOLUTE EOSINOPHILS # (AUTO) 0.1 10^3/uL (0.0-0.6); ABSOLUTE MONOCYTES (AUTO) 0.4 10^3/uL (0.1-1.4); ABSOLUTE NEUT (AUTO) 3.8 10^3/uL (1.7-8.2); EOSINOPHILS % (AUTO) 1.1 % (0-6); HEMATOCRIT 40.6 % (37.9-51.0); HEMOGLOBIN 13.8 g/dL (13.5-17.0); LYMPHOCYTES % (AUTO) 18.2 % (13-45); MEAN CORPUSCULAR HEMOGLOBIN 33.9 pg (27.0-33.4); MEAN CORPUSCULAR VOLUME 100 fl (80-97); MONOCYTES % (AUTO) 7.4 % (3-13); PLATELET COUNT 162 10^3/uL (150-450); RED BLOOD COUNT 4.08 10^6/uL (4.35-5.55); RED CELL DISTRIBUTION WIDTH 13.6 % (11.5-14.0); SEGMENTED NEUTROPHILS % (AUTO) 72.3 % (42-78); TOTAL CELLS COUNTED % (AUTO) 100 %; WHITE BLOOD COUNT 5.3 10^3/uL (4.0-10.5)
[2018-10-26 12:08] LABS: ALANINE AMINOTRANSFERASE 11 U/L (21-72); ALBUMIN 4.5 g/dL (3.5-5.0); ALKALINE PHOSPHATASE 65 U/L (38-126); ANION GAP 6 (5-19); ASPARTATE AMINO TRANSFERASE 25 U/L (17-59); BILIRUBIN,DIRECT 0.3 mg/dL (0.0-0.4); BILIRUBIN,TOTAL 0.8 mg/dL (0.2-1.3); BLOOD UREA NITROGEN 8 mg/dL (7-20); CALCIUM 10.3 mg/dL (8.4-10.2); CARBON DIOXIDE 35 mmol/L (22-30); CHLORIDE 97 mmol/L (98-107); GLUCOSE 104 mg/dL (75-110); LIPASE 42.4 U/L (23-300); POTASSIUM 5.4 mmol/L (3.6-5.0); SODIUM 137.5 mmol/L (137-145); TOTAL PROTEIN 8.4 g/dL (6.3-8.2)
[2018-10-26 12:45] LABS: APPEARANCE,URINE CLEAR; BILIRUBIN,URINE NEGATIVE (NEGATIVE); COLOR,URINE YELLOW; GLUCOSE, URINE NEGATIVE (NEGATIVE); KETONES,URINE NEGATIVE (NEGATIVE); LEUKOCYTE ESTERASE,URINE NEGATIVE (NEGATIVE); NITRITE,URINE NEGATIVE (NEGATIVE); PROTEIN,URINE NEGATIVE (NEGATIVE); URINE SPECIFIC GRAVITY 1.021
[2018-10-26] MEDS ORDERED: PREDNISONE 20 MG TABLET PO ONE (14:19)
[2018-10-26] MEDS ORDERED: DIPHENHYDRAMINE HCL 50 MG/ML VIAL IV ONE ×2 (14:19→16:03)
[2018-10-26] MEDS ORDERED: PROCHLORPERAZINE EDISYLATE INJ 10 MG/2 ML VIAL IV ONE ×2 (14:19→16:03)
[2018-10-26] MEDS ORDERED: IPRATROPIUM/ALBUTEROL 0.5-2.5 MG/3 ML AMPUL NEB ONE (14:19)
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
[2018-10-26] MEDS ORDERED: KETOROLAC TROMETHAMINE INJ/PF 30 MG/1 ML SDV IV ONE (16:03)
[2018-10-26 17:17] VITALS: BP 129/67
== END 2018-10-26 17:33 | disposition home or self-care (01) ==
LOC: ER 10:50
DX: E87.5 Hyperkalemia (principal); R51 Headache; J44.9 Chronic obstructive pulmonary disease, unspecified; F17.200 Nicotine dependence, unspecified, uncomplicated; I10 Essential (primary) hypertension
CPT/HCPCS: 96376; 94640; 99284; 96374; 96375; 36415; 83690; 85025; 80053; 81001; 84484; 71046; 70450; J1200; J1885; J7512; J0780; J7620

== ENCOUNTER 2018-11-03 15:44 | Emergency (ER) | payer SELFPAY ==
[2018-11-03] MEDS ORDERED: DIPH/PERTUSS(ACELL)/TETANUS VAC/PF 0.5 ML SYR (>=10YO) IM ONE (16:13)
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
--- NOTE | 2018-11-03 16:23 | RADIOLOGY REPORT (SQ) ---
EXAM DESCRIPTION: HAND LEFT 2 VIEWS COMPLETED DATE/TIME: 11/03/2018 4:03 pm REASON FOR STUDY: fish hook in thumb COMPARISON: None. EXAM PARAMETERS: NUMBER OF VIEWS: Three views. TECHNIQUE: AP, lateral and oblique radiographic images acquired of the left hand. LIMITATIONS: None. FINDINGS: MINERALIZATION: Normal. BONES: No acute fracture or dislocation. No worrisome bone lesions. JOINTS: No effusion. SOFT TISSUES: No significant soft tissue swelling. Fishing lure hook in the soft tissues of the left thumb adjacent to the interphalangeal joint, no bony involvement. . OTHER: No other significant finding. IMPRESSION: Fishing lure hook in the soft tissues of the left thumb adjacent to the interphalangeal joint, no bony involvement. TECHNICAL DOCUMENTATION: JOB ID: [id number] [employer]- All Rights Reserved Reading location - IP/workstation name: [email or web address]
[2018-11-03] MEDS ORDERED: LIDOCAINE 1% INJ-PF (10 MG/ML) 30 ML SDV INJ ONE (16:55)
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
--- NOTE | 2018-11-03 17:50 | RADIOLOGY REPORT (SQ) ---
EXAM DESCRIPTION: HAND LEFT 2 VIEWS COMPLETED DATE/TIME: 11/03/2018 5:30 pm REASON FOR STUDY: post fb removal left thumb COMPARISON: None. EXAM PARAMETERS: NUMBER OF VIEWS: Three views. TECHNIQUE: AP, lateral and oblique radiographic images acquired of the left hand. LIMITATIONS: None. FINDINGS: MINERALIZATION: Normal. BONES: No acute fracture or dislocation. No worrisome bone lesions. JOINTS: No effusions. SOFT TISSUES: Foreign body removed. No residual. OTHER: No other significant finding. IMPRESSION: Foreign body removed. No residual. TECHNICAL DOCUMENTATION: JOB ID: [id number] [employer]- All Rights Reserved Reading location - IP/workstation name: [email or web address]
[2018-11-03 18:33] VITALS: BP 138/78
== END 2018-11-03 18:33 | disposition home or self-care (01) ==
LOC: ER 15:44
DX: S60.352A Superficial foreign body of left thumb, initial encounter (principal); W45.8XXA Other foreign body or object entering through skin, initial encounter; Y93.89 Activity, other specified; Z88.0 Allergy status to penicillin; F17.200 Nicotine dependence, unspecified, uncomplicated; I10 Essential (primary) hypertension; J44.9 Chronic obstructive pulmonary disease, unspecified
CPT/HCPCS: 99283; 90471; 73120; 90715; J3490

== ENCOUNTER → 2018-11-23 | Outpatient (CLI) | payer OTHER ==
[2018-11-23 09:27] LABS: ABSOLUTE BASOPHILS # (AUTO) 0.1 10^3/uL (0.0-0.2); ABSOLUTE EOSINOPHILS # (AUTO) 0.1 10^3/uL (0.0-0.6); ABSOLUTE LYMPHOCYTES (AUTO) 1.5 10^3/uL (0.5-4.7); ABSOLUTE MONOCYTES (AUTO) 0.4 10^3/uL (0.1-1.4); ABSOLUTE NEUT (AUTO) 3.3 10^3/uL (1.7-8.2); BASOPHILS % (AUTO) 1.2 % (0-2); EOSINOPHILS % (AUTO) 1.4 % (0-6); HEMATOCRIT 38.3 % (37.9-51.0); HEMOGLOBIN 12.8 g/dL (13.5-17.0); LYMPHOCYTES % (AUTO) 28.4 % (13-45); MEAN CORPUSCULAR HEMOGLOBIN 32.9 pg (27.0-33.4); MEAN CORPUSCULAR HGB CONC 33.4 g/dL (32.0-36.0); MEAN CORPUSCULAR VOLUME 98 fl (80-97); PLATELET COUNT 264 10^3/uL (150-450); RED BLOOD COUNT 3.89 10^6/uL (4.35-5.55); RED CELL DISTRIBUTION WIDTH 13.2 % (11.5-14.0); TOTAL CELLS COUNTED % (AUTO) 100 %; WHITE BLOOD COUNT 5.4 10^3/uL (4.0-10.5)
[2018-11-23 09:53] LABS: ALANINE AMINOTRANSFERASE 13 U/L (21-72); ALBUMIN 3.9 g/dL (3.5-5.0); ALKALINE PHOSPHATASE 69 U/L (38-126); ANION GAP 9 (5-19); ASPARTATE AMINO TRANSFERASE 21 U/L (17-59); BILIRUBIN,DIRECT 0.3 mg/dL (0.0-0.4); BILIRUBIN,TOTAL 0.4 mg/dL (0.2-1.3); BLOOD UREA NITROGEN 14 mg/dL (7-20); CALCIUM 9.6 mg/dL (8.4-10.2); CARBON DIOXIDE 32 mmol/L (22-30); CHLORIDE 98 mmol/L (98-107); CHOLESTEROL 166.96 mg/dL (0-200); GLUCOSE 97 mg/dL (75-110); POTASSIUM 4.7 mmol/L (3.6-5.0); SODIUM 138.5 mmol/L (137-145); TOTAL PROTEIN 7.6 g/dL (6.3-8.2); TRIGLYCERIDES 65 mg/dL (<150)
[2018-11-23 10:04] LABS: DIRECT LDL 94 mg/dL (<100)
[2018-11-23 10:08] LABS: ERYTHROCYTE SEDIMENTATION RATE 69 mm/hr (0-20)
[2018-11-24 15:36] LABS: A/G RATIO 0.9 (0.7-1.7); ALBUMIN 2 3.4 g/dL (2.9-4.4); BETA GLOBULINS 1.3 g/dL (0.7-1.3); GAMMA GLOBULIN 1.3 g/dL (0.4-1.8); MONOCLONAL SPIKE Not Observed g/dL (Not Observ); PROTEIN TOTAL SERUM 7.4 g/dL (6.0-8.5)
== END ==
LOC: CCC 08:28
DX: R51 Headache (principal); K74.60 Unspecified cirrhosis of liver
CPT/HCPCS: 36415; 80053; 80061; 82977; 83036; 84165; 84443; 84550; 85025; 85652

== ENCOUNTER → 2019-01-04 | Outpatient (CLI) | payer OTHER ==
[2019-01-04 09:53] LABS: ABSOLUTE LYMPHOCYTES (AUTO) 1.4 10^3/uL (0.5-4.7); ABSOLUTE MONOCYTES (AUTO) 0.5 10^3/uL (0.1-1.4); ABSOLUTE NEUT (AUTO) 5.9 10^3/uL (1.7-8.2); BASOPHILS % (AUTO) 0.6 % (0-2); EOSINOPHILS % (AUTO) 0.5 % (0-6); HEMATOCRIT 38.9 % (37.9-51.0); LYMPHOCYTES % (AUTO) 17.4 % (13-45); MEAN CORPUSCULAR HEMOGLOBIN 33.1 pg (27.0-33.4); MEAN CORPUSCULAR HGB CONC 33.4 g/dL (32.0-36.0); MEAN CORPUSCULAR VOLUME 99 fl (80-97); MONOCYTES % (AUTO) 6.4 % (3-13); PLATELET COUNT 161 10^3/uL (150-450); RED BLOOD COUNT 3.92 10^6/uL (4.35-5.55); RED CELL DISTRIBUTION WIDTH 14.7 % (11.5-14.0); SEGMENTED NEUTROPHILS % (AUTO) 75.1 % (42-78); TOTAL CELLS COUNTED % (AUTO) 100 %; WHITE BLOOD COUNT 7.8 10^3/uL (4.0-10.5)
[2019-01-04 10:29] LABS: ASPARTATE AMINO TRANSFERASE 24 U/L (17-59); BILIRUBIN,TOTAL 0.6 mg/dL (0.2-1.3); BLOOD UREA NITROGEN 13 mg/dL (7-20)
[2019-01-04 10:30] LABS: C-REACTIVE PROTEIN < 5.0 mg/L (<10.0)
[2019-01-04 10:33] LABS: ERYTHROCYTE SEDIMENTATION RATE 9 mm/hr (0-20)
== END ==
LOC: CCC 09:10
DX: M31.5 Giant cell arteritis with polymyalgia rheumatica (principal)
CPT/HCPCS: 36415; 82247; 82565; 82947; 84450; 84460; 84520; 85025; 85652; 86140

== ENCOUNTER 2019-05-08 16:59 | Inpatient (IN) | payer MEDICAID, OTHER ==
[2019-05-08] MEDS ORDERED: RINGERS SOLUTION,LACTATED 500 ML IV ONE (17:08)
[2019-05-08 17:56] LABS: ABSOLUTE LYMPHOCYTES (AUTO) 0.9 10^3/uL (0.5-4.7); ABSOLUTE MONOCYTES (AUTO) 0.6 10^3/uL (0.1-1.4); ABSOLUTE NEUT (AUTO) 10.6 10^3/uL (1.7-8.2); BASOPHILS % (AUTO) 0.4 % (0-2); HEMATOCRIT 43.5 % (37.9-51.0); HEMOGLOBIN 14.8 g/dL (13.5-17.0); LYMPHOCYTES % (AUTO) 7.7 % (13-45); MEAN CORPUSCULAR HEMOGLOBIN 33.2 pg (27.0-33.4); MEAN CORPUSCULAR HGB CONC 33.9 g/dL (32.0-36.0); MEAN CORPUSCULAR VOLUME 98 fl (80-97); MONOCYTES % (AUTO) 5.1 % (3-13); PLATELET COUNT 207 10^3/uL (150-450); RED BLOOD COUNT 4.45 10^6/uL (4.35-5.55); RED CELL DISTRIBUTION WIDTH 13.4 % (11.5-14.0); SEGMENTED NEUTROPHILS % (AUTO) 86.8 % (42-78); TOTAL CELLS COUNTED % (AUTO) 100 %; WHITE BLOOD COUNT 12.2 10^3/uL (4.0-10.5)
--- NOTE | 2019-05-08 17:58 | RADIOLOGY REPORT (SQ) ---
EXAM DESCRIPTION: CHEST SINGLE VIEW COMPLETED DATE/TIME: 05/08/2019 5:48 pm REASON FOR STUDY: SOB COMPARISON: 12/14/2018 EXAM PARAMETERS: NUMBER OF VIEWS: One view. TECHNIQUE: Single frontal radiographic view of the chest acquired. RADIATION DOSE: NA LIMITATIONS: None. FINDINGS: LUNGS AND PLEURA: The lungs are hyperexpanded. There is no infiltrate, effusion, or mass. MEDIASTINUM AND HILAR STRUCTURES: No masses. Contour normal. HEART AND VASCULAR STRUCTURES: Heart normal in size. Normal vasculature. BONES: No acute findings. HARDWARE: None in the chest. OTHER: No other significant finding. IMPRESSION: Marked chronic lung changes with no acute cardiopulmonary findings. TECHNICAL DOCUMENTATION: JOB ID: [id number] [employer]- All Rights Reserved Reading location - IP/workstation name: [email or web address]
[2019-05-08] MEDS: MAGNESIUM SULFATE/D5W 1 GM/100 ML RTUPB IV SCH ×2 (18:01→19:23)
[2019-05-08 18:07] LABS: ALBUMIN 4.5 g/dL (3.5-5.0); ALKALINE PHOSPHATASE 69 U/L (38-126); ANION GAP 11 (5-19); ASPARTATE AMINO TRANSFERASE 24 U/L (17-59); BILIRUBIN,DIRECT 0.2 mg/dL (0.0-0.4); BILIRUBIN,TOTAL 1.2 mg/dL (0.2-1.3); BLOOD UREA NITROGEN 10 mg/dL (7-20); CALCIUM 9.8 mg/dL (8.4-10.2); CARBON DIOXIDE 32 mmol/L (22-30); CHLORIDE 96 mmol/L (98-107); GLUCOSE 122 mg/dL (75-110); POTASSIUM 4.4 mmol/L (3.6-5.0); TOTAL PROTEIN 8.1 g/dL (6.3-8.2)
[2019-05-08 19:57] LABS: APPEARANCE,URINE SLIGHTLY-CLOUDY; BILIRUBIN,URINE NEGATIVE (NEGATIVE); COLOR,URINE YELLOW; GLUCOSE, URINE NEGATIVE (NEGATIVE); KETONES,URINE NEGATIVE (NEGATIVE); LEUKOCYTE ESTERASE,URINE NEGATIVE (NEGATIVE); NITRITE,URINE NEGATIVE (NEGATIVE); PROTEIN,URINE 100 mg/dL (NEGATIVE); URINE SPECIFIC GRAVITY 1.023; UROBILINOGEN,URINE NEGATIVE mg/dL (<2.0)
--- NOTE | 2019-05-08 20:17 | EKG REPORT ---
SEVERITY:- ABNORMAL ECG - SINUS TACHYCARDIA RIGHT ATRIAL ABNORMALITY BORDERLINE RIGHT AXIS DEVIATION BORDERLINE PROLONGED QT INTERVAL : Confirmed by: Lisa Luna MD 08-May-2019 20:16:34
[2019-05-08] MEDS: IPRATROPIUM/ALBUTEROL 0.5-2.5 MG/3 ML AMPUL NEB PRN ×2 (22:46→22:47)
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
[2019-05-08 23:41] LABS: A TYPE INFLUENZA AG NEGATIVE (NEGATIVE); B INFLUENZA AG NEGATIVE (NEGATIVE)
[2019-05-08] MEDS ORDERED: RINGERS SOLUTION,LACTATED 1,000 ML IV ONE (23:46)
[2019-05-09 00:19] LABS: ARTERIAL BLOOD BASE EXCESS 2.3 mmol/L; ARTERIAL BLOOD H2CO3 1.52 mmol/L (1.05-1.35); ARTERIAL BLOOD HCO3 28.5 mmol/L (20-24); ARTERIAL BLOOD O2 SATURATION 98.4 % (94-98); ARTERIAL BLOOD PCO2 50.6 mmHg (35-45); ARTERIAL BLOOD PH 7.37 (7.35-7.45); ARTERIAL BLOOD PO2 126.8 mmHg (80-100); ARTERIAL BLOOD TOTAL CO2 30.1 mmol/L (23-27)
[2019-05-09 00:25] LABS: ARTERIAL BLOOD FIO2 4L
[2019-05-09 00:32] LABS: VENOUS BLOOD BASE EXCESS 6.9 mmol/L; VENOUS BLOOD HCO3 33.1 mmol/L (20-32); VENOUS BLOOD PH 7.41 (7.30-7.42)
[2019-05-09 01:12] LABS: URINE AMPHETAMINES SCREEN NEGATIVE; URINE BARBITURATES SCREEN NEGATIVE; URINE BENZODIAZEPINES SCREEN NEGATIVE; URINE COCAINE SCREEN NEGATIVE; URINE MARIJUANA (THC) SCREEN NEGATIVE; URINE METHADONE SCREEN NEGATIVE; URINE PHENCYCLIDINE SCREEN NEGATIVE
[2019-05-09] MEDS ORDERED: INFLUENZA QUAD (6MOS+) 2019-20 VAC 0.5 ML SYR IM ONE (01:43)
[2019-05-09] MEDS ORDERED: ENOXAPARIN SODIUM INJ 40 MG/0.4 ML DISP.SYRIN SUBCUT ONE (02:30)
[2019-05-09] MEDS ORDERED: METHYLPREDNISOLONE INJ 125 MG/2 ML SDV IV ONE (02:30)
[2019-05-09 03:16] LABS: APPEARANCE,URINE TURBID; BILIRUBIN,URINE NEGATIVE (NEGATIVE); GLUCOSE, URINE NEGATIVE (NEGATIVE); KETONES,URINE NEGATIVE (NEGATIVE); LEUKOCYTE ESTERASE,URINE NEGATIVE (NEGATIVE); NITRITE,URINE NEGATIVE (NEGATIVE); PROTEIN,URINE NEGATIVE (NEGATIVE); URINE SPECIFIC GRAVITY 1.025; UROBILINOGEN,URINE NEGATIVE mg/dL (<2.0)
[2019-05-09 03:17] LABS: COLOR,URINE ORANGE
[2019-05-09 03:26] LABS: INTERNATIONAL RATION (INR) 0.95; PROTHROMBIN TIME 12.7 SEC (11.4-15.4)
[2019-05-09 03:29] LABS: URINE AMPHETAMINES SCREEN NEGATIVE; URINE BARBITURATES SCREEN NEGATIVE; URINE BENZODIAZEPINES SCREEN NEGATIVE; URINE COCAINE SCREEN NEGATIVE; URINE MARIJUANA (THC) SCREEN NEGATIVE; URINE METHADONE SCREEN NEGATIVE; URINE PHENCYCLIDINE SCREEN NEGATIVE
[2019-05-09 03:49] LABS: PARTIAL THROMBOPLASTIN TIME 29.6 SEC (23.5-35.8)
[2019-05-09 03:52] LABS: ANION GAP 8 (5-19); BLOOD UREA NITROGEN 11 mg/dL (7-20); CALCIUM 9.6 mg/dL (8.4-10.2); CARBON DIOXIDE 32 mmol/L (22-30); CHLORIDE 97 mmol/L (98-107); GLUCOSE 133 mg/dL (75-110); POTASSIUM 4.6 mmol/L (3.6-5.0)
[2019-05-09 03:53] LABS: PHOSPHORUS 3.9 mg/dL (2.5-4.5)
[2019-05-09 04:01] LABS: TROPONIN I < 0.012 ng/mL
[2019-05-09 04:02] LABS: AMYLASE 49 U/L (30-110)
[2019-05-09 04:04] LABS: FREE T4 (FREE THYROXINE) 1.11 ng/dL (0.78-2.19)
[2019-05-09 04:18] LABS: THYROID STIMULATING HORMONE 0.19 uIU/mL (0.47-4.68)
[2019-05-09] MEDS: IPRATROPIUM/ALBUTEROL 0.5-2.5 MG/3 ML AMPUL NEB SCH ×7 (05:25→23:44)
[2019-05-09 09:18] LABS: TROPONIN I < 0.012 ng/mL
[2019-05-09] MEDS: METHYLPREDNISOLONE INJ 125 MG/2 ML SDV IV SCH ×2 (10:41→18:09)
--- NOTE | 2019-05-09 13:24 | PDOC H&P ---
History of Present Illness Admission Date/PCP: 05/09/19 00:12 BRITNI CORAZON History of Present Illness: NICOLA LOUIS is a 59 year old male, he came to emergency room last night for evaluation of shortness of breath, wheezing, patient is a smoker also abuses alcohol, the chest x-ray that was done demonstrated severe hyperinflation of the lung field consistent with severe emphysema. The arterial blood gas demonstrated respiratory acidosis Past Medical History Cardiac Medical History: Reports: Hypertension Pulmonary Medical History: Reports: Chronic Obstructive Pulmonary Disease (COPD), Pneumonia Neurological Medical History: Reports: Migraine, Seizures - ETOH Withdrawals Psychiatric Medical History: Reports: Depression Past Surgical History Past Surgical History: Reports: Appendectomy, Orthopedic Surgery - arm surgery Social History Lives with: Spouse/Significant other Smoking Status: Current Every Day Smoker Cigarettes Packs Per Day: 1 Number of Years Smokin Last Time Smoked: 05/09/19 Frequency of Alcohol Use: Heavy Hx Recreational Drug Use: No Drugs: None Hx Prescription Drug Abuse: No Family History Family History: Reviewed & Not Pertinent Parental Family History Reviewed: Yes Children Family History Reviewed: Yes Sibling(s) Family History Reviewed.: Yes Medication/Allergy Home Medications: Albuterol Sulfate [Proair HFA Inhalation Aerosol 8.5 gm MDI] 2 puff IH Q4HP PRN 05/09/19 Allergies/Adverse Reactions: Penicillins Allergy (Severe, Verified 10/26/18 10:51) Review of Systems Constitutional: ABSENT: chills, fever(s), headache(s), weight gain, weight loss Eyes: ABSENT: visual disturbances Ears: ABSENT: hearing changes Cardiovascular: ABSENT: chest pain, dyspnea on exertion, edema, orthropnea, palpitations Respiratory: PRESENT: cough, dyspnea Gastrointestinal: ABSENT: abdominal pain, constipation, diarrhea, hematemesis, hematochezia, nausea, vomiting Genitourinary: ABSENT: dysuria, hematuria Musculoskeletal: ABSENT: joint swelling Integumentary: ABSENT: rash, wounds Neurological: ABSENT: abnormal gait, abnormal speech, confusion, dizziness, focal weakness, syncope Psychiatric: ABSENT: anxiety, depression, homidical ideation, suicidal ideation Endocrine: ABSENT: cold intolerance, heat intolerance, menstrual abnormalities, polydipsia, polyuria Hematologic/Lymphatic: ABSENT: easy bleeding, easy bruising, lymphadenopathy Physical Exam Vital Signs: Temp Pulse Resp BP Pulse Ox 98.5 F 87 24 H 129/69 H 98 05/09/19 08:02 05/09/19 08:14 05/09/19 08:14 05/09/19 08:02 05/09/19 08:14 Intake & Output 05/08/19 05/09/19 05/10/19 06:59 06:59 06:59 Intake Total 1700 Output Total 450 Balance 1250 Weight 56.2 kg General appearance: PRESENT: mild distress Head exam: PRESENT: atraumatic, normocephalic Neck exam: PRESENT: full ROM Respiratory exam: PRESENT: wheezes Cardiovascular exam: PRESENT: RRR, +S1, +S2 Vascular exam: PRESENT: normal capillary refill GI/Abdominal exam: PRESENT: normal bowel sounds, soft Rectal exam: PRESENT: deferred Neurological exam: PRESENT: alert, CN II-XII grossly intact Psychiatric exam: PRESENT: appropriate affect, normal mood Skin exam: PRESENT: dry, intact, warm Results Laboratory Results: 05/08/19 17:35 05/09/19 03:00 05/08/19 05/08/19 05/08/19 17:35 17:35 19:35 WBC 12.2 H RBC 4.45 Hgb 14.8 Hct 43.5 MCV 98 H MCH 33.2 MCHC 33.9 RDW 13.4 Plt Count 207 Seg Neutrophils % 86.8 H Carbonic Acid HCO3/H2CO3 Ratio ABG pH ABG pCO2 ABG pO2 ABG HCO3 ABG O2 Saturation ABG Base Excess VBG pH VBG pCO2 VBG HCO3 VBG Base Excess FiO2 Sodium 138.8 Potassium 4.4 Chloride 96 L Carbon Dioxide 32 H Anion Gap 11 BUN 10 Creatinine 0.54 Est GFR ( Amer) > 60 Glucose 122 H Calcium 9.8 Phosphorus Magnesium Total Bilirubin 1.2 AST 24 Alkaline Phosphatase 69 Ammonia Total Protein 8.1 Albumin 4.5 Amylase Lipase TSH Free T4 Urine Color YELLOW Urine Appearance SLIGHTLY-CLOUDY Urine pH 5.0 Ur Specific [place] 1.023 Urine Protein 100 H Urine Glucose (UA) NEGATIVE Urine Ketones NEGATIVE Urine Blood SMALL H Urine Nitrite NEGATIVE Ur Leukocyte Esterase NEGATIVE Urine WBC (Auto) 3 Urine RBC (Auto) 2 05/08/19 05/09/19 05/09/19 22:50 00:00 01:50 WBC RBC Hgb Hct MCV MCH MCHC RDW Plt Count Seg Neutrophils % Carbonic Acid 1.52 H HCO3/H2CO3 Ratio 18:1 ABG pH 7.37 ABG pCO2 50.6 H ABG pO2 126.8 H ABG HCO3 28.5 H ABG O2 Saturation 98.4 H ABG Base Excess 2.3 VBG pH 7.41 VBG pCO2 53.0 VBG HCO3 33.1 H VBG Base Excess 6.9 FiO2 4L Sodium Potassium Chloride Carbon Dioxide Anion Gap BUN Creatinine Est GFR ( Amer) Glucose Calcium Phosphorus Magnesium Total Bilirubin AST Alkaline Phosphatase Ammonia Total Protein Albumin Amylase Lipase TSH Free T4 Urine Color ORANGE Urine Appearance TURBID Urine pH 5.0 Ur Specific [place] 1.025 Urine Protein NEGATIVE Urine Glucose (UA) NEGATIVE Urine Ketones NEGATIVE Urine Blood SMALL H Urine Nitrite NEGATIVE Ur Leukocyte Esterase NEGATIVE Urine WBC (Auto) 2 Urine RBC (Auto) 05/09/19 05/09/19 05/09/19 03:00 03:00 03:00 WBC RBC Hgb Hct MCV MCH MCHC RDW Plt Count Seg Neutrophils % Carbonic Acid HCO3/H2CO3 Ratio ABG pH ABG pCO2 ABG pO2 ABG HCO3 ABG O2 Saturation ABG Base Excess VBG pH VBG pCO2 VBG HCO3 VBG Base Excess FiO2 Sodium 137.2 Potassium 4.6 Chloride 97 L Carbon Dioxide 32 H Anion Gap 8 BUN 11 Creatinine 0.49 L Est GFR ( Amer) > 60 Glucose 133 H Calcium 9.6 Phosphorus 3.9 Magnesium 2.0 Total Bilirubin AST Alkaline Phosphatase Ammonia 16.9 Total Protein Albumin Amylase 49 Lipase 37.4 TSH 0.19 L Free T4 1.11 Urine Color Urine Appearance Urine pH Ur Specific [place] Urine Protein Urine Glucose (UA) Urine Ketones Urine Blood Urine Nitrite Ur Leukocyte Esterase Urine WBC (Auto) Urine RBC (Auto) 05/08/19 05/09/19 05/09/19 17:35 03:00 03:00 Creatine Kinase 134 CK-MB (CK-2) Troponin I NT-Pro-B Natriuret Pep 515 H 219 H 05/09/19 05/09/19 05/09/19 03:00 08:25 08:25 Creatine Kinase 123 CK-MB (CK-2) 3.70 3.70 Troponin I < 0.012 < 0.012 NT-Pro-B Natriuret Pep Impressions: Chest X-Ray 05/08/19 17:02 IMPRESSION: Marked chronic lung changes with no acute cardiopulmonary findings. Assessment & Plan - Diagnosis (1) COPD exacerbation Is this a current diagnosis for this admission?: Yes Plan: Treat with intravenous Solu-Medrol, bronchodilators (2) ETOH abuse Is this a current diagnosis for this admission?: Yes Plan: History of alcohol abuse, last alcohol drink was over 72 hours ago, start patient on prophylaxis Lorazepam in anticipation of alcohol withdrawal syndrome (3) Respiratory failure with hypercapnia Qualifiers: Chronicity: acute Qualified Code(s): J96.02 - Acute respiratory failure with hypercapnia Is this a current diagnosis for this admission?: Yes Plan: Patient presently not requiring any positive pressure ventilation with BiPAP
[2019-05-09] MEDS ORDERED: LORAZEPAM INJ 2 MG/1 ML VIAL IV PRN (13:44)
[2019-05-09] MEDS: LORAZEPAM INJ 2 MG/1 ML VIAL IV SCH ×2 (15:19→22:18)
[2019-05-09 15:32] LABS: CREATINE KINASE MB 3.14 ng/mL (<4.55)
[2019-05-09 15:33] LABS: TROPONIN I < 0.012 ng/mL
[2019-05-09] MEDS: AZITHROMYCIN 500 MG in DEXTROSE 5%-WATER 250 ML IV SCH (16:35)
[2019-05-10] MEDS: METHYLPREDNISOLONE INJ 125 MG/2 ML SDV IV SCH ×3 (01:39→17:20)
[2019-05-10] MEDS: IPRATROPIUM/ALBUTEROL 0.5-2.5 MG/3 ML AMPUL NEB SCH ×4 (02:58→10:27)
[2019-05-10 05:27] LABS: HEMATOCRIT 39.2 % (37.9-51.0); HEMOGLOBIN 13.1 g/dL (13.5-17.0); MEAN CORPUSCULAR HEMOGLOBIN 32.9 pg (27.0-33.4); MEAN CORPUSCULAR HGB CONC 33.3 g/dL (32.0-36.0); MEAN CORPUSCULAR VOLUME 99 fl (80-97); PLATELET COUNT 170 10^3/uL (150-450); RED BLOOD COUNT 3.97 10^6/uL (4.35-5.55); RED CELL DISTRIBUTION WIDTH 13.6 % (11.5-14.0); WHITE BLOOD COUNT 14.6 10^3/uL (4.0-10.5)
[2019-05-10 05:48] LABS: ABSOLUTE LYMPHOCYTES# (MANUAL) 0.1 10^3/uL (0.5-4.7); ABSOLUTE MONOCYTES # (MANUAL) 0.7 10^3/uL (0.1-1.4); BASOPHILS % (MANUAL) 0 % (0-2); EOSINOPHILS % (MANUAL) 0 % (0-6); LYMPHOCYTES % (MANUAL) 1 % (13-45); MONOCYTES % (MANUAL) 5 % (3-13); SEGMENTED NEUTROPHILS % (MAN) 94 % (42-78); TOTAL CELLS COUNTED 100
[2019-05-10 05:49] LABS: ALBUMIN 3.6 g/dL (3.5-5.0); ALKALINE PHOSPHATASE 49 U/L (38-126); ASPARTATE AMINO TRANSFERASE 21 U/L (17-59); BILIRUBIN,DIRECT 0.1 mg/dL (0.0-0.4); BILIRUBIN,TOTAL 0.7 mg/dL (0.2-1.3); CHOLESTEROL 166.22 mg/dL (0-200); PLATELET COMMENT ADEQUATE; RBC MORPHOLOGY COMMENT NORMO-CYTIC/CHROMIC; TOTAL PROTEIN 6.5 g/dL (6.3-8.2); TOXIC GRANULATION SLIGHT; TOXIC VACUOLATION PRESENT; TRIGLYCERIDES 43 mg/dL (<150)
[2019-05-10] MEDS: LORAZEPAM INJ 2 MG/1 ML VIAL IV SCH ×3 (05:50→21:02)
[2019-05-10 06:04] LABS: DIRECT LDL 75 mg/dL (<100)
[2019-05-10] MEDS: ENOXAPARIN SODIUM INJ 40 MG/0.4 ML DISP.SYRIN SUBCUT SCH (09:30)
[2019-05-10] MEDS: AZITHROMYCIN 500 MG in DEXTROSE 5%-WATER 250 ML IV SCH (09:30)
[2019-05-10] MEDS ORDERED: POLYETHYLENE GLYCOL 3350 POWDER 17 GM/1 PACKET PO PRN (13:00)
--- NOTE | 2019-05-10 15:00 | PDOC PROGRESS REPORT ---
Subjective Progress Note for:: 05/10/19 Subjective:: Patient seen by the bedside, improving slowly, admitted yesterday Reason For Visit: ACUTE RESPIRATORY ACIDOSIS, ACUTE COPD Physical Exam Vital Signs: Temp Pulse Resp BP Pulse Ox 98.6 F 103 H 16 124/63 98 05/10/19 12:01 05/10/19 12:01 05/10/19 12:01 05/10/19 12:01 05/10/19 12:01 Intake & Output 05/09/19 05/10/19 05/11/19 06:59 06:59 06:59 Intake Total 1700 2212 250 Output Total 450 1850 Balance 1250 362 250 Weight 56.2 kg 54.9 kg General appearance: PRESENT: no acute distress Eye exam: PRESENT: PERRLA Respiratory exam: PRESENT: wheezes Cardiovascular exam: PRESENT: +S1, +S2 Neurological exam: PRESENT: alert Results Laboratory Results: 05/10/19 04:49 05/09/19 03:00 05/10/19 05/10/19 04:49 04:49 WBC 14.6 H RBC 3.97 L Hgb 13.1 L Hct 39.2 MCV 99 H MCH 32.9 MCHC 33.3 RDW 13.6 Plt Count 170 Seg Neutrophils % Not Reportable Total Bilirubin 0.7 AST 21 Alkaline Phosphatase 49 Total Protein 6.5 Albumin 3.6 Triglycerides 43 Cholesterol 166.22 LDL Cholesterol Direct 75 VLDL Cholesterol 9.0 L HDL Cholesterol 79 05/09/19 01:50 Clean Catch Midstream Urine Culture - Final 6,000 col/ml 05/08/19 05/09/19 05/09/19 17:35 03:00 03:00 Creatine Kinase 134 CK-MB (CK-2) Troponin I NT-Pro-B Natriuret Pep 515 H 219 H 05/09/19 05/09/19 05/09/19 03:00 08:25 08:25 Creatine Kinase 123 CK-MB (CK-2) 3.70 3.70 Troponin I < 0.012 < 0.012 NT-Pro-B Natriuret Pep 05/09/19 05/09/19 14:55 14:55 Creatine Kinase 127 CK-MB (CK-2) 3.14 Troponin I < 0.012 NT-Pro-B Natriuret Pep Impressions: Chest X-Ray 12/24/19 17:02 IMPRESSION: Marked chronic lung changes with no acute cardiopulmonary findings. Assessment & Plan - Diagnosis (1) COPD exacerbation Is this a current diagnosis for this admission?: Yes Plan: Patient will continue IV Solu-Medrol, bronchodilators, IV antibiotic (2) ETOH abuse Is this a current diagnosis for this admission?: Yes Plan: Continue IV Lorazepam in anticipation of alcohol withdrawal syndrome (3) Respiratory failure with hypercapnia Qualifiers: Chronicity: acute Qualified Code(s): J96.02 - Acute respiratory failure with hypercapnia Is this a current diagnosis for this admission?: Yes - Time Time Spent with patient: 35 or more minutes
[2019-05-10] MEDS: LEVALBUTEROL HCL NEB 1.25 MG/3 ML AMPUL NEB SCH (21:22)
[2019-05-11] MEDS: METHYLPREDNISOLONE INJ 125 MG/2 ML SDV IV SCH ×3 (01:36→18:10)
[2019-05-11] MEDS: LEVALBUTEROL HCL NEB 1.25 MG/3 ML AMPUL NEB SCH ×4 (01:59→20:40)
[2019-05-11] MEDS: LORAZEPAM INJ 2 MG/1 ML VIAL IV SCH ×2 (06:30→15:58)
[2019-05-11 06:38] LABS: HEMATOCRIT 38.8 % (37.9-51.0); MEAN CORPUSCULAR HEMOGLOBIN 33.3 pg (27.0-33.4); MEAN CORPUSCULAR HGB CONC 33.4 g/dL (32.0-36.0); MEAN CORPUSCULAR VOLUME 100 fl (80-97); PLATELET COUNT 165 10^3/uL (150-450); RED CELL DISTRIBUTION WIDTH 13.4 % (11.5-14.0); WHITE BLOOD COUNT 12.6 10^3/uL (4.0-10.5)
[2019-05-11 07:05] LABS: ALBUMIN 3.5 g/dL (3.5-5.0); ALKALINE PHOSPHATASE 43 U/L (38-126); ASPARTATE AMINO TRANSFERASE 17 U/L (17-59); BILIRUBIN,DIRECT 0.2 mg/dL (0.0-0.4); BILIRUBIN,TOTAL 0.6 mg/dL (0.2-1.3); TOTAL PROTEIN 6.4 g/dL (6.3-8.2)
[2019-05-11 07:22] LABS: ABSOLUTE LYMPHOCYTES# (MANUAL) 0.4 10^3/uL (0.5-4.7); ABSOLUTE MONOCYTES # (MANUAL) 0.4 10^3/uL (0.1-1.4); BASOPHILS % (MANUAL) 0 % (0-2); EOSINOPHILS % (MANUAL) 0 % (0-6); LYMPHOCYTES % (MANUAL) 3 % (13-45); MONOCYTES % (MANUAL) 3 % (3-13); PLATELET COMMENT ADEQUATE; RBC MORPHOLOGY COMMENT NORMO-CYTIC/CHROMIC; SEGMENTED NEUTROPHILS % (MAN) 94 % (42-78); TOTAL CELLS COUNTED 100
[2019-05-11] MEDS: ENOXAPARIN SODIUM INJ 40 MG/0.4 ML DISP.SYRIN SUBCUT SCH (10:14)
[2019-05-11] MEDS: AZITHROMYCIN 500 MG in DEXTROSE 5%-WATER 250 ML IV SCH (10:27)
--- NOTE | 2019-05-11 19:58 | PDOC PROGRESS REPORT ---
Subjective Progress Note for:: 05/11/19 Subjective:: Patient reported improvement in his breathing but still SOB with efforts. No chest pain. No nausea, vomiting, or abdominal pain. No constipation or diarrhea. Reason For Visit: ACUTE RESPIRATORY ACIDOSIS, ACUTE COPD Physical Exam Vital Signs: Temp Pulse Resp BP Pulse Ox 98.2 F 100 18 116/63 98 05/11/19 16:00 05/11/19 19:00 05/11/19 16:00 05/11/19 16:00 05/11/19 16:00 Intake & Output 05/10/19 05/11/19 05/12/19 06:59 06:59 06:59 Intake Total 2212 2307 2470 Output Total 1850 1400 1875 Balance 362 907 595 Weight 54.9 kg 55.5 kg 55.5 kg General appearance: PRESENT: mild distress - remain on supplemental oxygen via nasal cannula, thin Head exam: PRESENT: atraumatic, normocephalic Eye exam: PRESENT: conjunctiva pink. ABSENT: scleral icterus Ear exam: PRESENT: normal external ear exam Mouth exam: PRESENT: moist Respiratory exam: PRESENT: crackles - scatered, bilaterally, decreased breath sounds - at lung bases, rhonchi - scattered expiratory pahse Cardiovascular exam: PRESENT: RRR. ABSENT: diastolic murmur, rubs, systolic murmur Vascular exam: ABSENT: pallor GI/Abdominal exam: PRESENT: normal bowel sounds, soft. ABSENT: distended, guarding, mass, organolmegaly, rebound, tenderness Extremities exam: ABSENT: pedal edema Neurological exam: PRESENT: alert, awake, oriented to person, oriented to place, oriented to time, oriented to situation, CN II-XII grossly intact. ABSENT: motor sensory deficit Psychiatric exam: PRESENT: appropriate affect, normal mood. ABSENT: homicidal ideation, suicidal ideation Skin exam: PRESENT: dry, warm Results Laboratory Results: 05/11/19 05:28 05/09/19 03:00 05/11/19 05/11/19 05:28 05:28 WBC 12.6 H RBC 3.90 L Hgb 13.0 L Hct 38.8 MCV 100 H MCH 33.3 MCHC 33.4 RDW 13.4 Plt Count 165 Seg Neutrophils % Not Reportable Total Bilirubin 0.6 AST 17 Alkaline Phosphatase 43 Total Protein 6.4 Albumin 3.5 05/08/19 05/09/19 05/09/19 17:35 03:00 03:00 Creatine Kinase 134 CK-MB (CK-2) Troponin I NT-Pro-B Natriuret Pep 515 H 219 H 05/09/19 05/09/19 05/09/19 03:00 08:25 08:25 Creatine Kinase 123 CK-MB (CK-2) 3.70 3.70 Troponin I < 0.012 < 0.012 NT-Pro-B Natriuret Pep 05/09/19 05/09/19 14:55 14:55 Creatine Kinase 127 CK-MB (CK-2) 3.14 Troponin I < 0.012 NT-Pro-B Natriuret Pep Impressions: Chest X-Ray 05/08/19 17:02 IMPRESSION: Marked chronic lung changes with no acute cardiopulmonary findings. Assessment & Plan - Diagnosis (1) COPD exacerbation Is this a current diagnosis for this admission?: Yes Plan: Decrease IV Solu Medrol to 80 mg q 8 hours. Continue bronchodilators therapy. Patient admitted to not compliance with his medication since he ran out and cancel follow up appointments. (2) Respiratory failure with hypercapnia Qualifiers: Chronicity: acute Qualified Code(s): J96.02 - Acute respiratory failure with hypercapnia Is this a current diagnosis for this admission?: Yes Plan: continue current management with use of BiPAP while sleeping. Obtain ABG in AM. (3) Essential hypertension Is this a current diagnosis for this admission?: Yes Plan: Blood pressure remain oin acceptable range since admission. Patient admitted to not compliance with his medication since he ran out and cancel follow up appointments. (4) Cigarette nicotine dependence Qualifiers: Substance use status: other nicotine-induced disorder Qualified Code(s): F17.218 - Nicotine dependence, cigarettes, with other nicotine-induced disorders Is this a current diagnosis for this admission?: Yes Plan: Patient remain actively smoking prior to admission. Counseling was done during this bedside visit with emphasis of disease progression regarding COPD of he continue to smoke cigarette. (5) ETOH abuse Is this a current diagnosis for this admission?: Yes Plan: Patient remain active alcohol abuser. Bedside counseling was done during this bedside evaluation. Compliance with cessation of alcohol abuse remain a challenge. (6) Chronic constipation Is this a current diagnosis for this admission?: Yes Plan: Patient reported single bowel movement since admission. Maintain on Miralax usage on prn bases. Start on Colace 200 mg p.o qhs to hold for diarrhea. - Time Time Spent with patient: 35 or more minutes Level of Care: IMCU Smoking Cessation Education: 3 to 10 minutes Medications reviewed and adjusted accordingly: Yes Anticipated discharge: Home with Homehealth Within: Other - Inpatient Certification Based on my medical assessment, after consideration of the patient's comorbidities, presenting symptoms, or acuity I expect that the services needed warrant INPATIENT care.: Yes I certify that my determination is in accordance with my understanding of Medicare's requirements for reasonable and necessary INPATIENT services [42 CFR 412.3e].: Yes Medical Necessity: Significant Comorbidiites Make Outpatient Treatment Too Risky, Need Close Monitoring Due to Risk of Patient Decompensation, Need For IV Fluids, Need For Continuous Telemetry Monitoring, Need for Nebulizer Therapy and Monitoring of Response, Need for Pain Control, Need for IV Antibiotics, Risk of Complication if Not Cared For in Hospital, Risk of Diagnosis Which Will Require Inpatient Eval/Care/Monitoring 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
[2019-05-11] MEDS: DOCUSATE SODIUM 100 MG CAPSULE PO SCH (20:23)
[2019-05-11] MEDS: MELATONIN 5 MG TABLET PO PRN (22:00)
[2019-05-12] MEDS: METHYLPREDNISOLONE INJ 125 MG/2 ML SDV IV SCH ×4 (01:31→21:06)
[2019-05-12] MEDS: LEVALBUTEROL HCL NEB 1.25 MG/3 ML AMPUL NEB SCH ×4 (02:15→20:23)
[2019-05-12 05:24] LABS: ABSOLUTE LYMPHOCYTES (AUTO) 0.3 10^3/uL (0.5-4.7); ABSOLUTE MONOCYTES (AUTO) 0.6 10^3/uL (0.1-1.4); BASOPHILS % (AUTO) 0.1 % (0-2); EOSINOPHILS % (AUTO) 0.1 % (0-6); HEMATOCRIT 38.6 % (37.9-51.0); HEMOGLOBIN 13.1 g/dL (13.5-17.0); LYMPHOCYTES % (AUTO) 2.7 % (13-45); MEAN CORPUSCULAR HEMOGLOBIN 33.4 pg (27.0-33.4); MEAN CORPUSCULAR VOLUME 98 fl (80-97); MONOCYTES % (AUTO) 5.4 % (3-13); PLATELET COUNT 151 10^3/uL (150-450); RED BLOOD COUNT 3.92 10^6/uL (4.35-5.55); RED CELL DISTRIBUTION WIDTH 13.1 % (11.5-14.0); SEGMENTED NEUTROPHILS % (AUTO) 91.7 % (42-78); TOTAL CELLS COUNTED % (AUTO) 100 %; WHITE BLOOD COUNT 10.9 10^3/uL (4.0-10.5)
[2019-05-12 05:45] LABS: ALBUMIN 3.6 g/dL (3.5-5.0); ALKALINE PHOSPHATASE 42 U/L (38-126); ANION GAP 8 (5-19); ASPARTATE AMINO TRANSFERASE 17 U/L (17-59); BILIRUBIN,DIRECT 0.2 mg/dL (0.0-0.4); BILIRUBIN,TOTAL 0.8 mg/dL (0.2-1.3); BLOOD UREA NITROGEN 23 mg/dL (7-20); CALCIUM 9.4 mg/dL (8.4-10.2); CARBON DIOXIDE 37 mmol/L (22-30); CHLORIDE 91 mmol/L (98-107); GLUCOSE 135 mg/dL (75-110); POTASSIUM 4.7 mmol/L (3.6-5.0); TOTAL PROTEIN 6.6 g/dL (6.3-8.2)
[2019-05-12 05:56] LABS: PLATELET COMMENT ADEQUATE; RBC MORPHOLOGY COMMENT NORMO-CYTIC/CHROMIC
[2019-05-12] MEDS: AZITHROMYCIN 500 MG in DEXTROSE 5%-WATER 250 ML IV SCH (10:25)
[2019-05-12] MEDS: GUAIFENESIN/D-METHORPHAN (200-20 MG) SYRUP 10 ML PO PRN ×2 (10:25→21:27)
[2019-05-12] MEDS: DOCUSATE SODIUM 100 MG CAPSULE PO SCH (10:26)
[2019-05-12] MEDS: ENOXAPARIN SODIUM INJ 40 MG/0.4 ML DISP.SYRIN SUBCUT SCH (10:26)
--- NOTE | 2019-05-12 14:50 | PDOC PROGRESS REPORT ---
Subjective Progress Note for:: 05/12/19 Subjective:: No chest pain. Patient reported improved breathing. No nausea, vomiting, or abdominal pain. Patient reported two satisfactory bowel movement since last clinical evaluation. Reason For Visit: ACUTE RESPIRATORY ACIDOSIS, ACUTE COPD Physical Exam Vital Signs: Temp Pulse Resp BP Pulse Ox 98.2 F 95 16 123/63 96 05/12/19 11:29 05/12/19 14:26 05/12/19 14:26 05/12/19 11:29 05/12/19 14:26 Intake & Output 05/11/19 05/12/19 05/13/19 06:59 06:59 06:59 Intake Total 2307 2692 250 Output Total 1400 3000 Balance 907 -308 250 Weight 55.5 kg 55.9 kg Physical Exam: General appearance: PRESENT: mild distress - remain on supplemental oxygen via nasal cannula, thin Head exam: PRESENT: atraumatic, normocephalic Eye exam: PRESENT: conjunctiva pink. ABSENT: pallor, scleral icterus Ear exam: PRESENT: normal external ear exam Mouth exam: PRESENT: moist Respiratory exam: PRESENT: crackles - scattered, bilaterally, decreased breath sounds Cardiovascular exam: PRESENT: RRR. ABSENT: diastolic murmur, rubs, systolic m urmur GI/Abdominal exam: PRESENT: normal bowel sounds, soft. ABSENT: distended, guarding, mass, organomegaly, rebound, tenderness Extremities exam: ABSENT: pedal edema Neurological exam: PRESENT: alert, awake, oriented to person, oriented to place, oriented to time, oriented to situation, CN II-XII grossly intact. ABSENT: motor sensory deficit Psychiatric exam: PRESENT: appropriate affect, normal mood. ABSENT: homicidal ideation, suicidal ideation Skin exam: PRESENT: dry, warm Results Laboratory Results: 05/12/19 05:10 05/12/19 05:10 05/12/19 05/12/19 05:10 05:10 WBC 10.9 H RBC 3.92 L Hgb 13.1 L Hct 38.6 MCV 98 H MCH 33.4 MCHC 34.0 RDW 13.1 Plt Count 151 Seg Neutrophils % 91.7 H Sodium 135.9 L Potassium 4.7 Chloride 91 L Carbon Dioxide 37 H Anion Gap 8 BUN 23 H Creatinine 0.53 Est GFR ( Amer) > 60 Glucose 135 H Calcium 9.4 Total Bilirubin 0.8 AST 17 Alkaline Phosphatase 42 Total Protein 6.6 Albumin 3.6 05/08/19 05/09/19 05/09/19 17:35 03:00 03:00 Creatine Kinase 134 CK-MB (CK-2) Troponin I NT-Pro-B Natriuret Pep 515 H 219 H 05/09/19 05/09/19 05/09/19 03:00 08:25 08:25 Creatine Kinase 123 CK-MB (CK-2) 3.70 3.70 Troponin I < 0.012 < 0.012 NT-Pro-B Natriuret Pep 05/09/19 05/09/19 14:55 14:55 Creatine Kinase 127 CK-MB (CK-2) 3.14 Troponin I < 0.012 NT-Pro-B Natriuret Pep Impressions: Chest X-Ray 05/08/19 17:02 IMPRESSION: Marked chronic lung changes with no acute cardiopulmonary findings. Assessment & Plan - Diagnosis (1) COPD exacerbation Is this a current diagnosis for this admission?: Yes (2) Respiratory failure with hypercapnia Qualifiers: Chronicity: acute Qualified Code(s): J96.02 - Acute respiratory failure with hypercapnia Is this a current diagnosis for this admission?: Yes (3) Essential hypertension Is this a current diagnosis for this admission?: Yes (4) Cigarette nicotine dependence Qualifiers: Substance use status: other nicotine-induced disorder Qualified Code(s): F17.218 - Nicotine dependence, cigarettes, with other nicotine-induced disorders Is this a current diagnosis for this admission?: Yes (5) ETOH abuse Is this a current diagnosis for this admission?: Yes (6) Chronic constipation Is this a current diagnosis for this admission?: Yes - Time Time Spent with patient: 25-34 minutes Level of Care: IMCU Medications reviewed and adjusted accordingly: Yes Anticipated discharge: Home Within: Other - Inpatient Certification Based on my medical assessment, after consideration of the patient's comorbidities, presenting symptoms, or acuity I expect that the services needed warrant INPATIENT care.: Yes I certify that my determination is in accordance with my understanding of Medicare's requirements for reasonable and necessary INPATIENT services [42 CFR 412.3e].: Yes Medical Necessity: Significant Comorbidiites Make Outpatient Treatment Too Risky, Need Close Monitoring Due to Risk of Patient Decompensation, Need For IV Fluids, Need For Continuous Telemetry Monitoring, Need for IV Antibiotics, Risk of Complication if Not Cared For in Hospital, Risk of Diagnosis Which Will Require Inpatient Eval/Care/Monitoring Post Hospital Care: D/C Chronometer Assembler Documentation - Plan Summary Plan Summary: Continue current medication management. Consider tapering down Solu Medrol dosage.
[2019-05-12] MEDS: BENZONATATE 100 MG CAPSULE PO SCH (21:07)
[2019-05-12] MEDS: MELATONIN 5 MG TABLET PO PRN (21:27)
[2019-05-13] MEDS: LEVALBUTEROL HCL NEB 1.25 MG/3 ML AMPUL NEB SCH ×4 (02:37→20:06)
[2019-05-13] MEDS: METHYLPREDNISOLONE INJ 125 MG/2 ML SDV IV SCH ×2 (06:40→14:56)
[2019-05-13] MEDS: BENZONATATE 100 MG CAPSULE PO SCH ×3 (06:40→23:22)
[2019-05-13] MEDS: DOCUSATE SODIUM 100 MG CAPSULE PO SCH (11:03)
[2019-05-13] MEDS: AZITHROMYCIN 500 MG in DEXTROSE 5%-WATER 250 ML IV SCH (11:04)
[2019-05-13] MEDS: ENOXAPARIN SODIUM INJ 40 MG/0.4 ML DISP.SYRIN SUBCUT SCH (11:04)
[2019-05-13] MEDS: GUAIFENESIN/D-METHORPHAN (200-20 MG) SYRUP 10 ML PO PRN (19:55)
--- NOTE | 2019-05-13 22:46 | PDOC PROGRESS REPORT ---
Subjective Progress Note for:: 05/13/19 Subjective:: Patient is still concern about expectoration and congestion in his throat. Patient reported improved breathing. No chest pain. No nausea, vomiting, or abdominal pain. No fever or chills. Reason For Visit: ACUTE RESPIRATORY ACIDOSIS, ACUTE COPD Physical Exam Vital Signs: Temp Pulse Resp BP Pulse Ox 98.4 F 92 16 139/63 H 94 05/12/19 16:34 05/13/19 09:05 05/13/19 09:05 05/12/19 16:34 05/13/19 09:05 Intake & Output 05/12/19 05/13/19 05/14/19 06:59 06:59 06:59 Intake Total 2692 1927 Output Total 3000 1555 Balance -308 372 Weight 55.9 kg 55.9 kg Physical Exam: General appearance: PRESENT: mild distress - remain on supplemental oxygen via nasal cannula, thin Head exam: PRESENT: atraumatic, normocephalic Eye exam: PRESENT: conjunctiva pink. ABSENT: pallor, scleral icterus Ear exam: PRESENT: normal external ear exam Mouth exam: PRESENT: moist Respiratory exam: PRESENT: crackles - scattered, bilaterally, decreased breath sounds Cardiovascular exam: PRESENT: RRR. ABSENT: diastolic murmur, rubs, systolic murmur GI/Abdominal exam: PRESENT: normal bowel sounds, soft. ABSENT: distended, guarding, mass, organomegaly, rebound, tenderness Extremities exam: ABSENT: pedal edema Neurological exam: PRESENT: alert, awake, oriented to person, oriented to place, oriented to time, oriented to situation, CN II-XII grossly intact. ABSENT: motor sensory deficit Psychiatric exam: PRESENT: appropriate affect, normal mood. ABSENT: homicidal ideation, suicidal ideation Skin exam: PRESENT: dry, warm Results Laboratory Results: 05/12/19 05:10 05/12/19 05:10 05/08/19 05/09/19 05/09/19 17:35 03:00 03:00 Creatine Kinase 134 CK-MB (CK-2) Troponin I NT-Pro-B Natriuret Pep 515 H 219 H 05/09/19 05/09/19 05/09/19 03:00 08:25 08:25 Creatine Kinase 123 CK-MB (CK-2) 3.70 3.70 Troponin I < 0.012 < 0.012 NT-Pro-B Natriuret Pep 05/09/19 05/09/19 14:55 14:55 Creatine Kinase 127 CK-MB (CK-2) 3.14 Troponin I < 0.012 NT-Pro-B Natriuret Pep Impressions: Chest X-Ray 05/08/19 17:02 IMPRESSION: Marked chronic lung changes with no acute cardiopulmonary findings. Assessment & Plan - Diagnosis (1) COPD exacerbation Is this a current diagnosis for this admission?: Yes (2) Respiratory failure with hypercapnia Qualifiers: Chronicity: acute Qualified Code(s): J96.02 - Acute respiratory failure with hypercapnia Is this a current diagnosis for this admission?: Yes (3) Essential hypertension Is this a current diagnosis for this admission?: Yes (4) Cigarette nicotine dependence Qualifiers: Substance use status: other nicotine-induced disorder Qualified Code(s): F17.218 - Nicotine dependence, cigarettes, with other nicotine-induced disorders Is this a current diagnosis for this admission?: Yes (5) ETOH abuse Is this a current diagnosis for this admission?: Yes (6) Chronic constipation Is this a current diagnosis for this admission?: Yes - Time Time Spent with patient: 25-34 minutes Level of Care: IMCU Medications reviewed and adjusted accordingly: Yes Anticipated discharge: Home Within: Other - Inpatient Certification Based on my medical assessment, after consideration of the patient's comorbidities, presenting symptoms, or acuity I expect that the services needed warrant INPATIENT care.: Yes I certify that my determination is in accordance with my understanding of Medicare's requirements for reasonable and necessary INPATIENT services [42 CFR 412.3e].: Yes Medical Necessity: Significant Comorbidiites Make Outpatient Treatment Too Risky, Need Close Monitoring Due to Risk of Patient Decompensation, Need For IV Fluids, Need For Continuous Telemetry Monitoring, Need for Nebulizer Therapy and Monitoring of Response, Need for IV Antibiotics, Risk of Complication if Not Cared For in Hospital, Risk of Diagnosis Which Will Require Inpatient Eval/Care/Monitoring Post Hospital Care: D/C Bone Density Technician Documentation - Plan Summary Plan Summary: D/C IV Azithromycin. Star on Azithromycin 500 mg p.o daily. Decrease IV Solu Medrol to 40 mg q 8hours. Maintain on all other current medication management.
[2019-05-13] MEDS: MELATONIN 5 MG TABLET PO PRN (23:21)
[2019-05-14] MEDS: LEVALBUTEROL HCL NEB 1.25 MG/3 ML AMPUL NEB SCH ×4 (02:11→20:24)
[2019-05-14] MEDS: METHYLPREDNISOLONE INJ 125 MG/2 ML SDV IV SCH ×3 (02:22→17:56)
[2019-05-14] MEDS: BENZONATATE 100 MG CAPSULE PO SCH ×3 (06:34→21:08)
[2019-05-14] MEDS: GUAIFENESIN/D-METHORPHAN (200-20 MG) SYRUP 10 ML PO PRN ×3 (06:42→17:57)
[2019-05-14] MEDS: DOCUSATE SODIUM 100 MG CAPSULE PO SCH (10:19)
[2019-05-14] MEDS: AZITHROMYCIN 250 MG TABLET PO SCH (10:19)
[2019-05-14] MEDS: ENOXAPARIN SODIUM INJ 40 MG/0.4 ML DISP.SYRIN SUBCUT SCH (10:20)
--- NOTE | 2019-05-14 14:49 | PDOC PROGRESS REPORT ---
Subjective Progress Note for:: 05/14/19 Subjective:: Patient is breathing better. No chest pain. No nausea, vomiting, or abdominal pain. No fever or chills. Reason For Visit: ACUTE RESPIRATORY ACIDOSIS, ACUTE COPD Physical Exam Vital Signs: Temp Pulse Resp BP Pulse Ox 98.4 F 89 18 117/67 96 05/14/19 11:33 05/14/19 14:10 05/14/19 14:10 05/14/19 11:33 05/14/19 14:10 Intake & Output 05/13/19 05/14/19 05/15/19 06:59 06:59 06:59 Intake Total 1927 1647 620 Output Total 1555 2200 600 Balance 372 -553 20 Weight 55.9 kg 57 kg Physical Exam: General appearance: PRESENT: mild distress - remain on supplemental oxygen via nasal cannula, thin Head exam: PRESENT: atraumatic, normocephalic Eye exam: PRESENT: conjunctiva pink. ABSENT: pallor, scleral icterus Ear exam: PRESENT: normal external ear exam Mouth exam: PRESENT: moist Respiratory exam: PRESENT: crackles - scattered, bilaterally, decreased breath sounds Cardiovascular exam: PRESENT: RRR. ABSENT: diastolic murmur, rubs, systolic murmur GI/Abdominal exam: PRESENT: normal bowel sounds, soft. ABSENT: distended, guarding, mass, organomegaly, rebound, tenderness Extremities exam: ABSENT: pedal edema Neurological exam: PRESENT: alert, awake, oriented to person, oriented to place, oriented to time, oriented to situation, CN II-XII grossly intact. ABSENT: motor sensory deficit Psychiatric exam: PRESENT: appropriate affect, normal mood. ABSENT: homicidal ideation, suicidal ideation Skin exam: PRESENT: dry, warm Results Laboratory Results: 05/12/19 05:10 05/12/19 05:10 05/09/19 05:09 Blood Blood Culture - Final NO GROWTH IN 5 DAYS 05/09/19 03:00 Blood Blood Culture - Final NO GROWTH IN 5 DAYS 05/08/19 05/09/19 05/09/19 17:35 03:00 03:00 Creatine Kinase 134 CK-MB (CK-2) Troponin I NT-Pro-B Natriuret Pep 515 H 219 H 05/09/19 05/09/19 05/09/19 03:00 08:25 08:25 Creatine Kinase 123 CK-MB (CK-2) 3.70 3.70 Troponin I < 0.012 < 0.012 NT-Pro-B Natriuret Pep 05/09/19 05/09/19 14:55 14:55 Creatine Kinase 127 CK-MB (CK-2) 3.14 Troponin I < 0.012 NT-Pro-B Natriuret Pep Impressions: Chest X-Ray 05/08/19 17:02 IMPRESSION: Marked chronic lung changes with no acute cardiopulmonary findings. Assessment & Plan - Diagnosis (1) COPD exacerbation Is this a current diagnosis for this admission?: Yes (2) Respiratory failure with hypercapnia Qualifiers: Chronicity: acute Qualified Code(s): J96.02 - Acute respiratory failure with hypercapnia Is this a current diagnosis for this admission?: Yes (3) Essential hypertension Is this a current diagnosis for this admission?: Yes (4) Cigarette nicotine dependence Qualifiers: Substance use status: other nicotine-induced disorder Qualified Code(s): F17.218 - Nicotine dependence, cigarettes, with other nicotine-induced disorders Is this a current diagnosis for this admission?: Yes (5) ETOH abuse Is this a current diagnosis for this admission?: Yes (6) Chronic constipation Is this a current diagnosis for this admission?: Yes - Time Time Spent with patient: 35 or more minutes Level of Care: IMCU Medications reviewed and adjusted accordingly: Yes Anticipated discharge: Home with Homehealth Within: Other - Inpatient Certification Based on my medical assessment, after consideration of the patient's comorbidities, presenting symptoms, or acuity I expect that the services needed warrant INPATIENT care.: Yes I certify that my determination is in accordance with my understanding of Medicare's requirements for reasonable and necessary INPATIENT services [42 CFR 412.3e].: Yes Medical Necessity: Significant Comorbidiites Make Outpatient Treatment Too Risky, Need Close Monitoring Due to Risk of Patient Decompensation, Need For IV Fluids, Need For Continuous Telemetry Monitoring, Need for Nebulizer Therapy and Monitoring of Response, Risk of Complication if Not Cared For in Hospital, Risk of Diagnosis Which Will Require Inpatient Eval/Care/Monitoring Post Hospital Care: D/C Lpn Cma Documentation - Plan Summary Plan Summary: Continue current medication management. Possible discharge home tomorrow was discussed with patient during this bedside visit.
[2019-05-14] MEDS: ALBUTEROL SULFATE HFA (90 MCG/PUFF) 200 PUFF/8.5 GM MDI IH PRN (17:58)
[2019-05-14] MEDS: MELATONIN 5 MG TABLET PO PRN (21:08)
[2019-05-15] MEDS: METHYLPREDNISOLONE INJ 125 MG/2 ML SDV IV SCH ×2 (02:08→09:08)
[2019-05-15] MEDS: ALBUTEROL SULFATE HFA (90 MCG/PUFF) 200 PUFF/8.5 GM MDI IH PRN ×3 (02:10→20:09)
[2019-05-15] MEDS: LEVALBUTEROL HCL NEB 1.25 MG/3 ML AMPUL NEB SCH ×4 (02:21→20:18)
[2019-05-15] MEDS: BENZONATATE 100 MG CAPSULE PO SCH ×3 (05:02→22:35)
[2019-05-15] MEDS: DOCUSATE SODIUM 100 MG CAPSULE PO SCH (09:09)
[2019-05-15] MEDS: GUAIFENESIN/D-METHORPHAN (200-20 MG) SYRUP 10 ML PO PRN (09:09)
[2019-05-15] MEDS: AZITHROMYCIN 250 MG TABLET PO SCH (09:10)
--- NOTE | 2019-05-15 11:31 | PDOC PROGRESS REPORT ---
Subjective Progress Note for:: 05/15/19 Subjective:: No chest pain or difficulty with breathing. No nausea, vomiting, or abdominal pain. No fever or chills. Reason For Visit: ACUTE RESPIRATORY ACIDOSIS, ACUTE COPD Physical Exam Vital Signs: Temp Pulse Resp BP Pulse Ox 98.3 F 82 16 131/61 H 98 05/15/19 03:34 05/15/19 08:18 05/15/19 08:18 05/15/19 03:34 05/15/19 08:18 Intake & Output 05/14/19 05/15/19 05/16/19 06:59 06:59 06:59 Intake Total 1647 740 Output Total 2200 8305 Balance -553 -1784 Weight 57 kg 54.3 kg Results Laboratory Results: 05/12/19 05:10 05/12/19 05:10 05/08/19 05/09/19 05/09/19 17:35 03:00 03:00 Creatine Kinase 134 CK-MB (CK-2) Troponin I NT-Pro-B Natriuret Pep 515 H 219 H 05/09/19 05/09/19 05/09/19 03:00 08:25 08:25 Creatine Kinase 123 CK-MB (CK-2) 3.70 3.70 Troponin I < 0.012 < 0.012 NT-Pro-B Natriuret Pep 05/09/19 05/09/19 14:55 14:55 Creatine Kinase 127 CK-MB (CK-2) 3.14 Troponin I < 0.012 NT-Pro-B Natriuret Pep Impressions: Chest X-Ray 05/08/19 17:02 IMPRESSION: Marked chronic lung changes with no acute cardiopulmonary findings. Assessment & Plan - Diagnosis (1) COPD exacerbation Is this a current diagnosis for this admission?: Yes (2) Respiratory failure with hypercapnia Qualifiers: Chronicity: acute Qualified Code(s): J96.02 - Acute respiratory failure with hypercapnia Is this a current diagnosis for this admission?: Yes (3) Essential hypertension Is this a current diagnosis for this admission?: Yes (4) Cigarette nicotine dependence Qualifiers: Substance use status: other nicotine-induced disorder Qualified Code(s): F17.218 - Nicotine dependence, cigarettes, with other nicotine-induced disorders Is this a current diagnosis for this admission?: Yes (5) ETOH abuse Is this a current diagnosis for this admission?: Yes (6) Chronic constipation Is this a current diagnosis for this admission?: Yes - Time Time Spent with patient: 25-34 minutes Level of Care: IMCU Medications reviewed and adjusted accordingly: Yes Anticipated discharge: Home Within: Other - Inpatient Certification Based on my medical assessment, after consideration of the patient's comorbidities, presenting symptoms, or acuity I expect that the services needed warrant INPATIENT care.: Yes I certify that my determination is in accordance with my understanding of Medicare's requirements for reasonable and necessary INPATIENT services [42 CFR 412.3e].: Yes Medical Necessity: Significant Comorbidiites Make Outpatient Treatment Too Risky, Need Close Monitoring Due to Risk of Patient Decompensation, Need For Continuous Telemetry Monitoring, Need for Nebulizer Therapy and Monitoring of Response, Risk of Complication if Not Cared For in Hospital, Risk of Diagnosis Which Will Require Inpatient Eval/Care/Monitoring Post Hospital Care: D/C Application Support Consultant Documentation - Plan Summary Plan Summary: D/C IV Solu Medrol. Start on tapering dose of oral Prednisone. Maintain on all other current medication management.
[2019-05-15] MEDS: ENOXAPARIN SODIUM INJ 40 MG/0.4 ML DISP.SYRIN SUBCUT SCH (13:52)
[2019-05-15] MEDS: PREDNISONE 20 MG TABLET PO SCH (13:52)
[2019-05-15] MEDS: MELATONIN 5 MG TABLET PO PRN (23:47)
[2019-05-16] MEDS: LEVALBUTEROL HCL NEB 1.25 MG/3 ML AMPUL NEB SCH ×3 (02:18→13:08)
[2019-05-16] MEDS: BENZONATATE 100 MG CAPSULE PO SCH (05:38)
[2019-05-16] MEDS: ALBUTEROL SULFATE HFA (90 MCG/PUFF) 200 PUFF/8.5 GM MDI IH PRN (06:50)
[2019-05-16] MEDS: ENOXAPARIN SODIUM INJ 40 MG/0.4 ML DISP.SYRIN SUBCUT SCH (09:34)
[2019-05-16] MEDS: DOCUSATE SODIUM 100 MG CAPSULE PO SCH (09:39)
[2019-05-16] MEDS: AZITHROMYCIN 250 MG TABLET PO SCH (09:39)
[2019-05-16] MEDS: PREDNISONE 20 MG TABLET PO SCH (09:39)
[2019-05-16 12:17] VITALS: BP 119/66
--- NOTE | 2019-05-16 12:54 | PDOC DISCHARGE SUMMARY ---
Impression - Admit/DC Date/PCP Admission Date/Primary Care Provider: 05/09/19 00:12 BRITNI CHANDRA Discharge Date: 05/16/19 - Discharge Diagnosis (1) COPD exacerbation Is this a current diagnosis for this admission?: Yes (2) Respiratory failure with hypercapnia Is this a current diagnosis for this admission?: Yes (3) Essential hypertension Is this a current diagnosis for this admission?: Yes (4) Cigarette nicotine dependence Is this a current diagnosis for this admission?: Yes (5) ETOH abuse Is this a current diagnosis for this admission?: Yes (6) Chronic constipation Is this a current diagnosis for this admission?: Yes - Assessment Summary: Patient was admitted for exacerbated COPD. He did respond to medical management with resolution of his presenting symptoms. he will be discharged home on oral prednisone tapering dose regimen. I will start him on Symbicort 160/4.5 mcg 2puffs p.o bid. He will remain on ProAir for breakthrough wheezing management. I did supervisor counseling and guidance patient on smoking cessation as well as alcohol abuse cessation. He will follow up in the office as instructed upon discharge. - Additional Information Resuscitation Status: Full Code Discharge Diet: As Tolerated Referrals: BRITNI CHANDRA MD [Primary Care Provider] - 05/28/19 10:00 am Prescriptions: Docusate Sodium [Colace 100 mg Capsule] 200 mg PO DAILY #60 capsule Prednisone [Deltasone 5 mg Tablet] 5 mg PO ASDIR PRN #18 tablet PRN Reason: Albuterol Sulfate [Proair HFA Inhalation Aerosol 8.5 gm MDI] 2 puff IH Q4HP PRN 30 Days #1 hfa.aer.ad PRN Reason: For Wheezing Budesonide/Formoterol Fumarate [Symbicort Hfa 160-4.5 Mcg Inhaler 6 gm] 2 puff IH Q12 #1 inhaler Benzonatate [Tessalon Perles 100 mg Capsule] 100 mg PO Q8HP PRN #90 capsule PRN Reason: Home Medications: Albuterol Sulfate [Proair HFA Inhalation Aerosol 8.5 gm MDI] 2 puff IH Q4HP PRN 30 Days #1 hfa.aer.ad 05/16/19 Benzonatate [Tessalon Perles 100 mg Capsule] 100 mg PO Q8HP PRN #90 capsule 01/01/20 Budesonide/Formoterol Fumarate [Symbicort Hfa 160-4.5 Mcg Inhaler 6 gm] 2 puff IH Q12 #1 inhaler 05/16/19 Docusate Sodium [Colace 100 mg Capsule] 200 mg PO DAILY #60 capsule 05/16/19 Prednisone [Deltasone 5 mg Tablet] 5 mg PO ASDIR PRN #18 tablet 05/16/19 History of Present Illiness History of Present Illness: NICOLA LOUIS is a 59 year old male Hospital Course Hospital Course: Patient was admitted for exacerbated COPD. He did respond to medical management with resolution of his presenting symptoms. he will be discharged home on oral prednisone tapering dose regimen. I will start him on Symbicort 160/4.5 mcg 2puffs p.o bid. He will remain on ProAir for breakthrough wheezing management. I did supervisor counseling and guidance patient on smoking cessation as well as alcohol abuse cessation. He will follow up in the office as instructed upon discharge. Physical Exam Vital Signs: Temp Pulse Resp BP Pulse Ox 98.7 F 93 20 119/66 99 05/16/19 11:46 05/16/19 11:46 05/16/19 11:46 05/16/19 11:46 05/16/19 11:46 Intake & Output 05/15/19 05/16/19 05/17/19 06:59 06:59 06:59 Intake Total 740 1440 Output Total 3375 2200 Balance -2635 -760 Weight 54.3 kg 54.6 kg General appearance: PRESENT: thin Head exam: PRESENT: atraumatic, normocephalic Eye exam: PRESENT: conjunctiva pink. ABSENT: pallor, scleral icterus Ear exam: PRESENT: normal external ear exam Mouth exam: PRESENT: moist Respiratory exam: PRESENT: Clear to auscultation, bilaterally, decreased breath sounds Cardiovascular exam: PRESENT: RRR. ABSENT: diastolic murmur, rubs, systolic murmur GI/Abdominal exam: PRESENT: normal bowel sounds, soft. ABSENT: distended, guarding, mass, organomegaly, rebound, tenderness Extremities exam: ABSENT: pedal edema Neurological exam: PRESENT: alert, awake, oriented to person, oriented to place, oriented to time, oriented to situation, CN II-XII grossly intact. ABSENT: m otor sensory deficit Psychiatric exam: PRESENT: appropriate affect, normal mood. ABSENT: homicidal ideation, suicidal ideation Skin exam: PRESENT: dry, warm Results Laboratory Results: WBC 10.9 10^3/uL (4.0-10.5) H 05/12/19 05:10 RBC 3.92 10^6/uL (4.35-5.55) L 05/12/19 05:10 Hgb 13.1 g/dL (13.5-17.0) L 05/12/19 05:10 Hct 38.6 % (37.9-51.0) 05/12/19 05:10 MCV 98 fl (80-97) H 05/12/19 05:10 MCH 33.4 pg (27.0-33.4) 05/12/19 05:10 MCHC 34.0 g/dL (32.0-36.0) 05/12/19 05:10 RDW 13.1 % (11.5-14.0) 05/12/19 05:10 Plt Count 151 10^3/uL (150-450) 05/12/19 05:10 Lymph % (Auto) 2.7 % (13-45) L 05/12/19 05:10 [place] % (Auto) 5.4 % (3-13) 05/12/19 05:10 Eos % (Auto) 0.1 % (0-6) 05/12/19 05:10 Baso % (Auto) 0.1 % (0-2) 05/12/19 05:10 Absolute Neuts (auto) 10.0 10^3/uL (1.7-8.2) H 05/12/19 05:10 Absolute Lymphs (auto) 0.3 10^3/uL (0.5-4.7) L 05/12/19 05:10 Absolute Monos (auto) 0.6 10^3/uL (0.1-1.4) 05/12/19 05:10 Absolute Eos (auto) 0.0 10^3/uL (0.0-0.6) 05/12/19 05:10 Absolute Basos (auto) 0.0 10^3/uL (0.0-0.2) 05/12/19 05:10 Total Counted 100 05/11/19 05:28 Seg Neutrophils % 91.7 % (42-78) H 05/12/19 05:10 Seg Neuts % (Manual) 94 % (42-78) H 05/11/19 05:28 Lymphocytes % (Manual) 3 % (13-45) L 05/11/19 05:28 Monocytes % (Manual) 3 % (3-13) 05/11/19 05:28 Eosinophils % (Manual) 0 % (0-6) 05/11/19 05:28 Basophils % (Manual) 0 % (0-2) 05/11/19 05:28 Abs Neuts (Manual) 11.8 10^3/uL (1.7-8.2) H 05/11/19 05:28 Abs Lymphs (Manual) 0.4 10^3/uL (0.5-4.7) L 05/11/19 05:28 Abs Monocytes (Manual) 0.4 10^3/uL (0.1-1.4) 05/11/19 05:28 Absolute Eos (Manual) 0.0 10^3/uL (0.0-0.6) 05/11/19 05:28 Abs Basophils (Manual) 0.0 10^3/uL (0.0-0.2) 05/11/19 05:28 Toxic Granulation SLIGHT 05/10/19 04:49 Toxic Vacuolation PRESENT 05/10/19 04:49 Platelet Comment ADEQUATE 05/12/19 05:10 RBC Morph Comment NORMO-CYTIC/CHROMIC 05/12/19 05:10 PT 12.7 SEC (11.4-15.4) 05/09/19 03:00 INR 0.95 05/09/19 03:00 APTT 29.6 SEC (23.5-35.8) 05/09/19 03:00 Carbonic Acid 1.52 mmol/L (1.05-1.35) H 05/09/19 00:00 HCO3/H2CO3 Ratio 18:1 05/09/19 00:00 ABG pH 7.37 (7.35-7.45) 05/09/19 00:00 ABG pCO2 50.6 mmHg (35-45) H 05/09/19 00:00 ABG pO2 126.8 mmHg (80-100) H 05/09/19 00:00 ABG HCO3 28.5 mmol/L (20-24) H 05/09/19 00:00 ABG Total CO2 30.1 mmol/L (23-27) H 05/09/19 00:00 ABG O2 Saturation 98.4 % (94-98) H 05/09/19 00:00 ABG Base Excess 2.3 mmol/L 05/09/19 00:00 VBG pH 7.41 (7.30-7.42) 05/08/19 22:50 VBG pCO2 53.0 mmHg (35-63) 05/08/19 22:50 VBG HCO3 33.1 mmol/L (20-32) H 05/08/19 22:50 VBG Base Excess 6.9 mmol/L 05/08/19 22:50 FiO2 4L 05/09/19 00:00 Sodium 135.9 mmol/L (137-145) L 05/12/19 05:10 Potassium 4.7 mmol/L (3.6-5.0) 05/12/19 05:10 Chloride 91 mmol/L (98-107) L 05/12/19 05:10 Carbon Dioxide 37 mmol/L (22-30) H 05/12/19 05:10 Anion Gap 8 (5-19) 05/12/19 05:10 BUN 23 mg/dL (7-20) H 05/12/19 05:10 Creatinine 0.53 mg/dL (0.52-1.25) 05/12/19 05:10 Est GFR ( Amer) > 60 (>60) 05/12/19 05:10 Est GFR (MDRD) Non-Af > 60 (>60) 05/12/19 05:10 Glucose 135 mg/dL (75-110) H 05/12/19 05:10 Hemoglobin A1c % 5.0 % (4.7-6.0) 05/10/19 04:49 Calcium 9.4 mg/dL (8.4-10.2) 05/12/19 05:10 Phosphorus 3.9 mg/dL (2.5-4.5) 05/09/19 03:00 Magnesium 2.0 mg/dL (1.6-2.3) 05/09/19 03:00 Total Bilirubin 0.8 mg/dL (0.2-1.3) 05/12/19 05:10 Direct Bilirubin 0.2 mg/dL (0.0-0.4) 05/12/19 05:10 Neonat Total Bilirubin Not Reportable 05/12/19 05:10 Neonat Direct Bilirubin Not Reportable 05/12/19 05:10 Neonat Indirect Bili Not Reportable 05/12/19 05:10 AST 17 U/L (17-59) 05/12/19 05:10 ALT 9 U/L (<50) 05/12/19 05:10 Alkaline Phosphatase 42 U/L (38-126) 05/12/19 05:10 Ammonia 16.9 umol/L (9-33) 05/09/19 03:00 Creatine Kinase 127 U/L (55-170) 05/09/19 14:55 CK-MB (CK-2) 3.14 ng/mL (<4.55) 05/09/19 14:55 Troponin I < 0.012 ng/mL 05/09/19 14:55 NT-Pro-B Natriuret Pep 219 pg/mL (<125) H 05/09/19 03:00 Total Protein 6.6 g/dL (6.3-8.2) 05/12/19 05:10 Albumin 3.6 g/dL (3.5-5.0) 05/12/19 05:10 Triglycerides 43 mg/dL (<150) 05/10/19 04:49 Cholesterol 166.22 mg/dL (0-200) 05/10/19 04:49 LDL Cholesterol Direct 75 mg/dL (<100) 05/10/19 04:49 VLDL Cholesterol 9.0 mg/dL (10-31) L 05/10/19 04:49 HDL Cholesterol 79 mg/dL (>40) 05/10/19 04:49 Amylase 49 U/L (30-110) 05/09/19 03:00 Lipase 37.4 U/L (23-300) 05/09/19 03:00 TSH 0.19 uIU/mL (0.47-4.68) L 05/09/19 03:00 Free T4 1.11 ng/dL (0.78-2.19) 05/09/19 03:00 Urine Color ORANGE 05/09/19 01:50 Urine Appearance TURBID 05/09/19 01:50 Urine pH 5.0 (5.0-9.0) 05/09/19 01:50 Ur Specific [place] 1.025 05/09/19 01:50 Urine Protein NEGATIVE mg/dL (NEGATIVE) 05/09/19 01:50 Urine Glucose (UA) NEGATIVE mg/dL (NEGATIVE) 05/09/19 01:50 Urine Ketones NEGATIVE mg/dL (NEGATIVE) 05/09/19 01:50 Urine Blood SMALL (NEGATIVE) H 05/09/19 01:50 Urine Nitrite NEGATIVE (NEGATIVE) 05/09/19 01:50 Urine Bilirubin NEGATIVE (NEGATIVE) 05/09/19 01:50 Urine Urobilinogen NEGATIVE mg/dL (<2.0) 05/09/19 01:50 Ur Leukocyte Esterase NEGATIVE (NEGATIVE) 05/09/19 01:50 Urine WBC (Auto) 2 /HPF 05/09/19 01:50 Urine RBC (Auto) 2 /HPF 05/08/19 19:35 Urine Bacteria (Auto) TRACE /HPF 05/08/19 19:35 Squamous Epi Cells Auto <1 /HPF 05/08/19 19:35 Urine Mucus (Auto) MANY /LPF 05/09/19 01:50 Urine Ascorbic Acid NEGATIVE (NEGATIVE) 05/09/19 01:50 Urine Opiates Screen NEGATIVE 05/09/19 01:50 Urine Methadone Screen NEGATIVE 05/09/19 01:50 Ur Barbiturates Screen NEGATIVE 05/09/19 01:50 Ur Phencyclidine Scrn NEGATIVE 05/09/19 01:50 Ur Amphetamines Screen NEGATIVE 05/09/19 01:50 U Benzodiazepines Scrn NEGATIVE 05/09/19 01:50 Urine Cocaine Screen NEGATIVE 05/09/19 01:50 U Marijuana (THC) Screen NEGATIVE 05/09/19 01:50 Serum Alcohol < 10 mg/dL (NONE DETECTED) 05/08/19 17:35 Influenza A (Rapid) NEGATIVE (NEGATIVE) 05/08/19 23:19 Influenza B (Rapid) NEGATIVE (NEGATIVE) 05/08/19 23:19 05/08/19 05/09/19 05/09/19 17:35 03:00 03:00 CK-MB (CK-2) 3.70 Troponin I < 0.012 NT-Pro-B Natriuret Pep 515 H 219 H 05/09/19 05/09/19 08:25 14:55 CK-MB (CK-2) 3.70 3.14 Troponin I < 0.012 < 0.012 NT-Pro-B Natriuret Pep Impressions: Chest X-Ray 05/08/19 17:02 IMPRESSION: Marked chronic lung changes with no acute cardiopulmonary findings. Plan Health Concerns: Cigarette smoking and alcohol abuse tendency make patient high risk for readmission due to noncompliance with lifestyle changes. Plan of Treatment: Maintain on Symbicort and ProAir therapy. Continue counseling on lifestyle changes. Goals: Reduce readmission risk through emphasis on medication compliance and lifestyle changes. Time Spent: Greater than 30 Minutes - In post acute care planning and counseling on lifestyle changes. Stroke Is this a Stroke Patient?: No Acute Heart Failure - Is this a Heart Failure Patient?: No
== END 2019-05-16 15:15 | disposition home or self-care (01) | DRG 190 ==
LOC: ER 16:59 → EH 05-09 00:12 → 3W 05-09 01:10
PROVIDERS: ADMIT Internal Medicine; ATTEND Internal Medicine Geriatric Medicine
PROC: 5A09357 Assistance with Respiratory Ventilation, Less than 24 Consecutive Hours, Continuous Positive Airway Pressure (ICD-10-PCS; principal; 2019-05-09)
DX: J44.1 Chronic obstructive pulmonary disease with (acute) exacerbation (principal); J96.02 Acute respiratory failure with hypercapnia; E87.2 Acidosis; F10.10 Alcohol abuse, uncomplicated; I10 Essential (primary) hypertension; F32.9 Major depressive disorder, single episode, unspecified; F17.218 Nicotine dependence, cigarettes, with other nicotine-induced disorders; K59.09 Other constipation; Z88.0 Allergy status to penicillin; Z91.14 Patient's other noncompliance with medication regimen; Z71.6 Tobacco abuse counseling; Z71.41 Alcohol abuse counseling and surveillance of alcoholic
CPT/HCPCS: 36415; 71045; 80048; 80053; 80061; 80076; 80307; 81001; 82140; 82150; 82550; 82553; 82803; 83036; 83690; 83735; 83880; 84100; 84439; 84443; 84484; 85025; 85610; 85730; 87040; 87086; 87804; 93005; 93010; 94640; 94660; 96365; 96366; 99285; J0456; J1650; J2060; J2930; J3475; J3490; J7060; J7120; J7512; J7620

== ENCOUNTER 2019-10-18 16:28 | Inpatient (IN) | payer MEDICAID, MEDICARE ==
[2019-10-18 16:51] LABS: ABSOLUTE BASOPHILS # (AUTO) 0.1 10^3/uL (0.0-0.2); ABSOLUTE EOSINOPHILS # (AUTO) 0.1 10^3/uL (0.0-0.6); ABSOLUTE LYMPHOCYTES (AUTO) 2.5 10^3/uL (0.5-4.7); ABSOLUTE MONOCYTES (AUTO) 0.9 10^3/uL (0.1-1.4); ABSOLUTE NEUT (AUTO) 4.7 10^3/uL (1.7-8.2); BASOPHILS % (AUTO) 1.5 % (0-2); EOSINOPHILS % (AUTO) 1.1 % (0-6); HEMATOCRIT 37.5 % (37.9-51.0); HEMOGLOBIN 12.9 g/dL (13.5-17.0); LYMPHOCYTES % (AUTO) 30.1 % (13-45); MEAN CORPUSCULAR HEMOGLOBIN 32.7 pg (27.0-33.4); MEAN CORPUSCULAR HGB CONC 34.4 g/dL (32.0-36.0); MEAN CORPUSCULAR VOLUME 95 fl (80-97); MONOCYTES % (AUTO) 10.7 % (3-13); PLATELET COUNT 202 10^3/uL (150-450); RED BLOOD COUNT 3.94 10^6/uL (4.35-5.55); RED CELL DISTRIBUTION WIDTH 14.2 % (11.5-14.0); SEGMENTED NEUTROPHILS % (AUTO) 56.6 % (42-78); TOTAL CELLS COUNTED % (AUTO) 100 %; WHITE BLOOD COUNT 8.3 10^3/uL (4.0-10.5)
[2019-10-18 16:55] LABS: VENOUS BLOOD BASE EXCESS 2.9 mmol/L; VENOUS BLOOD HCO3 26.9 mmol/L (20-32); VENOUS BLOOD PCO2 39.1 mmHg (35-63); VENOUS BLOOD PH 7.46 (7.30-7.42)
[2019-10-18 17:09] LABS: ALBUMIN 4.1 g/dL (3.5-5.0); ALKALINE PHOSPHATASE 63 U/L (38-126); ANION GAP 15 (5-19); ASPARTATE AMINO TRANSFERASE 31 U/L (17-59); BILIRUBIN,TOTAL 0.9 mg/dL (0.2-1.3); BLOOD UREA NITROGEN 12 mg/dL (7-20); CALCIUM 9.4 mg/dL (8.4-10.2); CARBON DIOXIDE 27 mmol/L (22-30); CHLORIDE 92 mmol/L (98-107); GLUCOSE 133 mg/dL (75-110); POTASSIUM 3.7 mmol/L (3.6-5.0); TOTAL PROTEIN 7.3 g/dL (6.3-8.2)
--- NOTE | 2019-10-18 17:10 | RADIOLOGY REPORT (SQ) ---
EXAM DESCRIPTION: CHEST SINGLE VIEW IMAGES COMPLETED DATE/TIME: 10/18/2019 4:57 pm REASON FOR STUDY: SOB COMPARISON: 05/08/2019 EXAM PARAMETERS: NUMBER OF VIEWS: One view. TECHNIQUE: Single frontal radiographic view of the chest acquired. RADIATION DOSE: NA LIMITATIONS: None. FINDINGS: LUNGS AND PLEURA: Findings of marked severe COPD. Focal parenchymal opacity at the left lung. No pneumothorax. Small left pleural effusion. MEDIASTINUM AND HILAR STRUCTURES: No masses. Contour normal. HEART AND VASCULAR STRUCTURES: Heart normal in size. Normal vasculature. BONES: Old healed left rib fractures. No acute findings. HARDWARE: None in the chest. OTHER: No other significant finding. IMPRESSION: 1. Marked severe COPD. Focal opacity at the left lung base, new since the prior examin ation dated 05/08/2019. This finding may be on the basis of infiltrate. Small left pleural effusion Follow-up examination is suggested to document for interval resolution. TECHNICAL DOCUMENTATION: JOB ID: [id number] 2010 [employer]- All Rights Reserved Reading location - IP/workstation name: [email or web address]
[2019-10-18] MEDS ORDERED: LEVOFLOXACIN 750 MG/D5W RTU 750 MG/150 ML RTUPB IV ONE (17:57)
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
[2019-10-18] MEDS ORDERED: ACETAMINOPHEN 325 MG TABLET PO PRN (18:24)
[2019-10-18 18:37] LABS: APPEARANCE,URINE CLEAR; BILIRUBIN,URINE NEGATIVE (NEGATIVE); COLOR,URINE YELLOW; GLUCOSE, URINE NEGATIVE (NEGATIVE); KETONES,URINE NEGATIVE (NEGATIVE); LEUKOCYTE ESTERASE,URINE NEGATIVE (NEGATIVE); NITRITE,URINE NEGATIVE (NEGATIVE); PROTEIN,URINE 30 mg/dL (NEGATIVE); URINE SPECIFIC GRAVITY 1.026
[2019-10-18] MEDS: RINGERS SOLUTION,LACTATED 1,000 ML IV PRN ×2 (18:46→20:19)
[2019-10-18] MEDS: NORMAL SALINE 1000 ML 1,000 ML IV PRN (21:30)
[2019-10-18] MEDS: GUAIFENESIN 600 MG TABLET.SA PO SCH (21:32)
[2019-10-18] MEDS ORDERED: ALBUTEROL SULFATE HFA (90 MCG/PUFF) 8 GM MDI IH PRN (22:45)
[2019-10-18] MEDS ORDERED: GLUCAGON,HUMAN RECOMB 1 MG INJ IM PRN (22:46)
[2019-10-18] MEDS ORDERED: DEXTROSE 40% GEL 15 GM TUBE PO PRN ×2 (22:46)
[2019-10-18] MEDS ORDERED: DEXTROSE 50%-WATER 25 GM/50 ML DISP.SYRIN IV PRN ×2 (22:46)
--- NOTE | 2019-10-18 23:09 | PDOC H&P ---
History of Present Illness Admission Date/PCP: 10/18/19 18:17 BRITNI CHANDRA Patient complains of: Shortness of breath History of Present Illness: NICOLA LOUIS is a 59 year old male patient known to my practice, very noncompliant with medical follow up, presented to the ED with complain of worsening shortness of breath, coughing, nausea, vomiting, generalized weakness and ill feeling. He denied definite fever but admitted to feeling sweaty and chills. He continue to drink alcohol heavily and smoke cigarette. He claimed compliance with his medication. he reported fair appetite and oral intake but his recent illness have limited his food and fluid intake due to subsequent vomiting. His initial ED evaluation was significant severely elevated serum lact ic acid level and abnormal chest X ray suggestive of pneumonia. His morbidities is as listed below. Past Medical History Cardiac Medical History: Reports: Hypertension Denies: Pulmonary Embolism, Heart Murmur Pulmonary Medical History: Reports: Chronic Obstructive Pulmonary Disease (COPD), Pneumonia Denies: Tuberculosis Neurological Medical History: Reports: Migraine, Seizures - ETOH Withdrawals Endocrine Medical History: Reports: Diabetes Mellitus Type 2 Psychiatric Medical History: Reports: Depression Past Surgical History Past Surgical History: Reports: Appendectomy, Orthopedic Surgery - arm surgery Social History Smoking Status: Current Every Day Smoker Frequency of Alcohol Use: Heavy Hx Recreational Drug Use: No Drugs: None Hx Prescription Drug Abuse: No Family History Family History: Reviewed & Not Pertinent Parental Family History Reviewed: Yes Children Family History Reviewed: Yes Sibling(s) Family History Reviewed.: Yes Medication/Allergy Home Medications: Albuterol Sulfate [Proair HFA Inhalation Aerosol 8.5 gm MDI] 2 puff IH Q4HP PRN 10/18/19 Allergies/Adverse Reactions: Penicillins Allergy (Severe, Verified 10/18/19 16:51) Review of Systems Constitutional: PRESENT: chills, weakness Eyes: ABSENT: visual disturbances Ears: ABSENT: hearing changes Cardiovascular: ABSENT: chest pain, dyspnea on exertion, edema, orthropnea, palpitations Respiratory: PRESENT: cough. ABSENT: hemoptysis Gastrointestinal: PRESENT: nausea, vomiting. ABSENT: abdominal pain, constipation, diarrhea, hematemesis, hematochezia Genitourinary: ABSENT: dysuria, hematuria Musculoskeletal: ABSENT: joint swelling Integumentary: ABSENT: rash, wounds Neurological: ABSENT: abnormal gait, abnormal speech, confusion, dizziness, focal weakness, syncope Psychiatric: ABSENT: anxiety, depression, homidical ideation, suicidal ideation Endocrine: ABSENT: cold intolerance, heat intolerance, menstrual abnormalities, polydipsia, polyuria Hematologic/Lymphatic: ABSENT: easy bleeding, easy bruising, lymphadenopathy Allergic/Immunologic: ABSENT: seasonal rhinorrhea Physical Exam Vital Signs: Temp Pulse Resp BP Pulse Ox 99.3 F 16 129/75 H 96 10/18/19 16:46 10/18/19 18:01 10/18/19 18:00 10/18/19 18:01 Intake & Output 10/17/19 10/18/19 10/19/19 06:59 06:59 06:59 Weight 58.3 kg General appearance: PRESENT: mild distress - on supplemental oxygen via nasal cannula Head exam: PRESENT: atraumatic, normocephalic Eye exam: PRESENT: conjunctiva pink. ABSENT: scleral icterus Ear exam: PRESENT: normal external ear exam Mouth exam: PRESENT: moist Respiratory exam: PRESENT: crackles - scattred, decreased breath sounds - at lung bases, rhonchi, wheezes Cardiovascular exam: PRESENT: RRR. ABSENT: diastolic murmur, rubs, systolic murmur Vascular exam: ABSENT: pallor GI/Abdominal exam: PRESENT: normal bowel sounds, soft. ABSENT: distended, guarding, mass, organolmegaly, rebound, tenderness Rectal exam: PRESENT: deferred Extremities exam: ABSENT: pedal edema Neurological exam: PRESENT: alert, awake, oriented to person, oriented to place, oriented to time, oriented to situation, CN II-XII grossly intact. ABSENT: motor sensory deficit Psychiatric exam: PRESENT: appropriate affect, normal mood. ABSENT: homicidal ideation, suicidal ideation Skin exam: PRESENT: dry, warm Results Laboratory Results: 10/18/19 16:35 10/18/19 16:35 10/18/19 10/18/19 10/18/19 16:35 16:35 16:35 WBC 8.3 RBC 3.94 L Hgb 12.9 L Hct 37.5 L MCV 95 MCH 32.7 MCHC 34.4 RDW 14.2 H Plt Count 202 Seg Neutrophils % 56.6 VBG pH 7.46 H VBG pCO2 39.1 VBG HCO3 26.9 VBG Base Excess 2.9 Sodium 133.8 L Potassium 3.7 Chloride 92 L Carbon Dioxide 27 Anion Gap 15 BUN 12 Creatinine 0.55 Est GFR ( Amer) > 60 Glucose 133 H Lactic Acid Calcium 9.4 Total Bilirubin 0.9 AST 31 Alkaline Phosphatase 63 Total Protein 7.3 Albumin 4.1 10/18/19 16:35 WBC RBC Hgb Hct MCV MCH MCHC RDW Plt Count Seg Neutrophils % VBG pH VBG pCO2 VBG HCO3 VBG Base Excess Sodium Potassium Chloride Carbon Dioxide Anion Gap BUN Creatinine Est GFR ( Amer) Glucose Lactic Acid 6.3 H Calcium Total Bilirubin AST Alkaline Phosphatase Total Protein Albumin 10/18/19 16:35 Creatine Kinase 110 Impressions: Chest X-Ray 10/18/19 16:40 IMPRESSION: 1. Marked severe COPD. Focal opacity at the left lung base, new since the prior examination dated 05/08/2019. This finding may be on the basis of infiltrate. Small left pleural effusion Follow-up examination is suggested to document for interval resolution. Assessment & Plan - Diagnosis (1) Left lower lobe pneumonia Qualifiers: Pneumonia type: due to unspecified organism Qualified Code(s): J18.9 - Pneumonia, unspecified organism Is this a current diagnosis for this admission?: Yes Plan: See admitting attending physician orders for details about care plan. (2) Lactic acidosis Is this a current diagnosis for this admission?: Yes Plan: See admitting attending physician orders for details about care plan. (3) COPD (chronic obstructive pulmonary disease) Qualifiers: COPD type: unspecified COPD Is this a current diagnosis for this admission?: Yes Plan: See admitting attending physician orders for details about care plan. (4) Essential hypertension Is this a current diagnosis for this admission?: Yes Plan: See admitting attending physician orders for details about care plan. (5) Adult failure to thrive syndrome Is this a current diagnosis for this admission?: Yes Plan: See admitting attending physician orders for details about care plan. (6) Hyperglycemia due to type 2 diabetes mellitus Qualifiers: Diabetes mellitus correction insulin use: without remote computer terminal operator use Qualified Code(s): E11.65 - Type 2 diabetes mellitus with hyperglycemia Is this a current diagnosis for this admission?: Yes Plan: See admitting attending physician orders for details about care plan. patient reported that his diabetes mellitus has been controlled with diet management only. (7) Cigarette nicotine dependence Qualifiers: Substance use status: other nicotine-induced disorder Qualified Code(s): F17.218 - Nicotine dependence, cigarettes, with other nicotine-induced disorders Is this a current diagnosis for this admission?: Yes Plan: See admitting attending physician orders for details about care plan. (8) ETOH abuse Is this a current diagnosis for this admission?: Yes Plan: See admitting attending physician orders for details about care plan. (9) Osteoarthritis Qualifiers: Osteoarthritis location: unspecified site Osteoarthritis type: primary Qualified Code(s): M19.91 - Primary osteoarthritis, unspecified site Is this a current diagnosis for this admission?: Yes Plan: See admitting attending physician orders for details about care plan. - Time Time Spent: 50 to 70 Minutes Medications reviewed and adjusted accordingly: Yes Anticipated discharge: Home with Homehealth Within: Other - Inpatient Certification Based on my medical assessment, after consideration of the patient's comorbidities, presenting symptoms, or acuity I expect that the services needed warrant INPATIENT care.: Yes I certify that my determination is in accordance with my understanding of Medicare's requirements for reasonable and necessary INPATIENT services [42 CFR 412.3e].: Yes Medical Necessity: Significant Comorbidiites Make Outpatient Treatment Too Risky, Need Close Monitoring Due to Risk of Patient Decompensation, Need For IV Fluids, Need For Continuous Telemetry Monitoring, Need for IV Antibiotics, Risk of Complication if Not Cared For in Hospital, Risk of Diagnosis Which Will Require Inpatient Eval/Care/Monitoring Post Hospital Care: D/C Integrative Medicine Physician Documentation - Plan Summary Plan Summary: See admitting attending physician orders for details about care plan.
[2019-10-18 23:46] LABS: CHOLESTEROL 138.84 mg/dL (0-200); TRIGLYCERIDES 60 mg/dL (<150)
[2019-10-18 23:57] LABS: DIRECT LDL 44 mg/dL (<100)
[2019-10-19] MEDS: PANTOPRAZOLE SODIUM 40 MG TABLET.DR PO SCH (05:34)
[2019-10-19 06:48] LABS: ABSOLUTE BASOPHILS # (AUTO) 0.1 10^3/uL (0.0-0.2); ABSOLUTE LYMPHOCYTES (AUTO) 0.5 10^3/uL (0.5-4.7); ABSOLUTE MONOCYTES (AUTO) 0.4 10^3/uL (0.1-1.4); ABSOLUTE NEUT (AUTO) 5.3 10^3/uL (1.7-8.2); BASOPHILS % (AUTO) 0.9 % (0-2); HEMATOCRIT 36.2 % (37.9-51.0); HEMOGLOBIN 12.5 g/dL (13.5-17.0); LYMPHOCYTES % (AUTO) 7.9 % (13-45); MEAN CORPUSCULAR HEMOGLOBIN 32.6 pg (27.0-33.4); MEAN CORPUSCULAR HGB CONC 34.5 g/dL (32.0-36.0); MEAN CORPUSCULAR VOLUME 95 fl (80-97); MONOCYTES % (AUTO) 6.5 % (3-13); PLATELET COUNT 170 10^3/uL (150-450); RED BLOOD COUNT 3.82 10^6/uL (4.35-5.55); SEGMENTED NEUTROPHILS % (AUTO) 84.7 % (42-78); TOTAL CELLS COUNTED % (AUTO) 100 %; WHITE BLOOD COUNT 6.2 10^3/uL (4.0-10.5)
[2019-10-19 07:01] LABS: ALBUMIN 4.1 g/dL (3.5-5.0); ALKALINE PHOSPHATASE 64 U/L (38-126); ANION GAP 8 (5-19); ASPARTATE AMINO TRANSFERASE 31 U/L (17-59); BILIRUBIN,TOTAL 1.3 mg/dL (0.2-1.3); BLOOD UREA NITROGEN 10 mg/dL (7-20); CALCIUM 9.6 mg/dL (8.4-10.2); CARBON DIOXIDE 31 mmol/L (22-30); CHLORIDE 92 mmol/L (98-107); GLUCOSE 132 mg/dL (75-110); TOTAL PROTEIN 7.3 g/dL (6.3-8.2)
[2019-10-19 08:01] LABS: POTASSIUM 5.1 mmol/L (3.6-5.0)
[2019-10-19] MEDS: INSULIN LISPRO 100 UNIT/ML 3 ML VIAL SUBCUT SCH ×4 (10:14→22:49)
[2019-10-19] MEDS: MULTIVITS W-MIN/IRON SOLN 60 ML PO SCH (10:19)
[2019-10-19] MEDS: GUAIFENESIN 600 MG TABLET.SA PO SCH ×2 (10:19→22:22)
[2019-10-19] MEDS: ENOXAPARIN SODIUM INJ 40 MG/0.4 ML DISP.SYRIN SUBCUT SCH (10:19)
[2019-10-19] MEDS: NORMAL SALINE 1000 ML 1,000 ML IV PRN ×2 (10:24→22:24)
--- NOTE | 2019-10-19 15:50 | PDOC PROGRESS REPORT ---
Subjective Progress Note for:: 10/19/19 Subjective:: Breathing is improving. No fever or chills. No chest pain. No nausea, vomiting of abdominal pain. Requesting for HFA at bedside for usage. Reason For Visit: LEFT LOWER LOBE PNEUMONIA PROBABLE SEPSIS LACTIC Physical Exam Vital Signs: Temp Pulse Resp BP Pulse Ox 97.9 F 80 18 143/76 H 95 10/19/19 11:49 10/19/19 11:49 10/19/19 11:49 10/19/19 11:49 10/19/19 11:49 Intake & Output 10/18/19 10/19/19 10/20/19 06:59 06:59 06:59 Intake Total 2368 1360 Output Total 1600 750 Balance 768 610 Weight 57.8 kg General appearance: PRESENT: mild distress - onsupplemental oxygen via nasal cannula., thin Head exam: PRESENT: atraumatic, normocephalic Eye exam: PRESENT: conjunctiva pink, scleral icterus Respiratory exam: PRESENT: decreased breath sounds, rhonchi Cardiovascular exam: PRESENT: RRR, +S1, +S2. ABSENT: diastolic murmur, rubs, systolic murmur Vascular exam: ABSENT: pallor GI/Abdominal exam: PRESENT: normal bowel sounds, soft. ABSENT: distended, gua rding, mass, organolmegaly, rebound, tenderness Extremities exam: PRESENT: pedal edema Musculoskeletal exam: ABSENT: ambulatory, deformity, dislocation, full ROM, normal inspection, tenderness, other Neurological exam: PRESENT: alert, awake, oriented to person, oriented to place, oriented to time, oriented to situation, CN II-XII grossly intact. ABSENT: motor sensory deficit Psychiatric exam: PRESENT: appropriate affect, normal mood. ABSENT: homicidal ideation, suicidal ideation Skin exam: PRESENT: dry, warm Results Laboratory Results: 10/19/19 05:29 10/19/19 05:29 10/18/19 10/18/19 10/18/19 16:35 16:35 16:35 WBC 8.3 RBC 3.94 L Hgb 12.9 L Hct 37.5 L MCV 95 MCH 32.7 MCHC 34.4 RDW 14.2 H Plt Count 202 Seg Neutrophils % 56.6 VBG pH 7.46 H VBG pCO2 39.1 VBG HCO3 26.9 VBG Base Excess 2.9 Sodium 133.8 L Potassium 3.7 Chloride 92 L Carbon Dioxide 27 Anion Gap 15 BUN 12 Creatinine 0.55 Est GFR ( Amer) > 60 Glucose 133 H Lactic Acid Calcium 9.4 Total Bilirubin 0.9 AST 31 Alkaline Phosphatase 63 Total Protein 7.3 Albumin 4.1 Triglycerides Cholesterol LDL Cholesterol Direct VLDL Cholesterol HDL Cholesterol Urine Color Urine Appearance Urine pH Ur Specific [place] Urine Protein Urine Glucose (UA) Urine Ketones Urine Blood Urine Nitrite Ur Leukocyte Esterase Urine WBC (Auto) Urine RBC (Auto) 10/18/19 10/18/19 10/18/19 16:35 17:35 23:22 WBC RBC Hgb Hct MCV MCH MCHC RDW Plt Count Seg Neutrophils % VBG pH VBG pCO2 VBG HCO3 VBG Base Excess Sodium Potassium Chloride Carbon Dioxide Anion Gap BUN Creatinine Est GFR ( Amer) Glucose Lactic Acid 6.3 H Calcium Total Bilirubin AST Alkaline Phosphatase Total Protein Albumin Triglycerides 60 Cholesterol 138.84 LDL Cholesterol Direct 44 VLDL Cholesterol 12.0 HDL Cholesterol 82 Urine Color YELLOW Urine Appearance CLEAR Urine pH 6.0 Ur Specific [place] 1.026 Urine Protein 30 H Urine Glucose (UA) NEGATIVE Urine Ketones NEGATIVE Urine Blood SMALL H Urine Nitrite NEGATIVE Ur Leukocyte Esterase NEGATIVE Urine WBC (Auto) 1 Urine RBC (Auto) 2 10/19/19 10/19/19 05:29 05:29 WBC 6.2 RBC 3.82 L Hgb 12.5 L Hct 36.2 L MCV 95 MCH 32.6 MCHC 34.5 RDW 14.0 Plt Count 170 Seg Neutrophils % 84.7 H VBG pH VBG pCO2 VBG HCO3 VBG Base Excess Sodium 131.1 L Potassium 5.1 H D Chloride 92 L Carbon Dioxide 31 H Anion Gap 8 BUN 10 Creatinine 0.50 L Est GFR ( Amer) > 60 Glucose 132 H Lactic Acid Calcium 9.6 Total Bilirubin 1.3 AST 31 Alkaline Phosphatase 64 Total Protein 7.3 Albumin 4.1 Triglycerides Cholesterol LDL Cholesterol Direct VLDL Cholesterol HDL Cholesterol Urine Color Urine Appearance Urine pH Ur Specific [place] Urine Protein Urine Glucose (UA) Urine Ketones Urine Blood Urine Nitrite Ur Leukocyte Esterase Urine WBC (Auto) Urine RBC (Auto) 10/18/19 16:35 Creatine Kinase 110 Impressions: Chest X-Ray 10/18/19 16:40 IMPRESSION: 1. Marked severe COPD. Focal opacity at the left lung base, new since the prior examination dated 05/08/2019. This finding may be on the basis of infiltrate. Small left pleural effusion Follow-up examination is suggested to document for interval resolution. Assessment & Plan - Diagnosis (1) Left lower lobe pneumonia Qualifiers: Pneumonia type: due to unspecified organism Qualified Code(s): J18.9 - Pneumonia, unspecified organism Is this a current diagnosis for this admission?: Yes (2) Lactic acidosis Is this a current diagnosis for this admission?: Yes (3) COPD (chronic obstructive pulmonary disease) Qualifiers: COPD type: unspecified COPD Is this a current diagnosis for this admission?: Yes (4) Essential hypertension Is this a current diagnosis for this admission?: Yes (5) Adult failure to thrive syndrome Is this a current diagnosis for this admission?: Yes (6) Hyperglycemia due to type 2 diabetes mellitus Qualifiers: Diabetes mellitus ferry terminal agent insulin use: without ferry terminal agent use Qualified Code(s): E11.65 - Type 2 diabetes mellitus with hyperglycemia Is this a current diagnosis for this admission?: Yes (7) Cigarette nicotine dependence Qualifiers: Substance use status: other nicotine-induced disorder Qualified Code(s): F17.218 - Nicotine dependence, cigarettes, with other nicotine-induced disorders Is this a current diagnosis for this admission?: Yes (8) ETOH abuse Is this a current diagnosis for this admission?: Yes (9) Osteoarthritis Qualifiers: Osteoarthritis location: unspecified site Osteoarthritis type: primary Qualified Code(s): M19.91 - Primary osteoarthritis, unspecified site Is this a current diagnosis for this admission?: Yes - Time Time Spent with patient: 25-34 minutes Level of Care: IMCU Medications reviewed and adjusted accordingly: Yes Anticipated discharge: Home with Homehealth Within: Other - Inpatient Certification Based on my medical assessment, after consideration of the patient's comorbidities, presenting symptoms, or acuity I expect that the services needed warrant INPATIENT care.: Yes I certify that my determination is in accordance with my understanding of Medicare's requirements for reasonable and necessary INPATIENT services [42 CFR 412.3e].: Yes Medical Necessity: Significant Comorbidiites Make Outpatient Treatment Too Risky, Need Close Monitoring Due to Risk of Patient Decompensation, Need For IV Fluids, Need For Continuous Telemetry Monitoring, Need for Nebulizer Therapy and Monitoring of Response, Need for Neurological Checks, Need for IV Antibiotics, Risk of Complication if Not Cared For in Hospital, Risk of Diagnosis Which Will Require Inpatient Eval/Care/Monitoring Post Hospital Care: D/C Field Service Specialist Documentation - Plan Summary Plan Summary: Continue current medication management with addition on Duoneb 1 unit dose q 4 hours for wheezing.
[2019-10-19] MEDS: LEVOFLOXACIN 750 MG/D5W RTU 750 MG/150 ML RTUPB IV SCH (17:20)
[2019-10-19] MEDS ORDERED: MELATONIN 5 MG TABLET PO ONE (23:15)
[2019-10-20] MEDS: PANTOPRAZOLE SODIUM 40 MG TABLET.DR PO SCH (05:46)
[2019-10-20] MEDS: INSULIN LISPRO 100 UNIT/ML 3 ML VIAL SUBCUT SCH ×4 (10:53→23:33)
[2019-10-20] MEDS: MULTIVITS W-MIN/IRON SOLN 60 ML PO SCH (10:55)
[2019-10-20] MEDS: ENOXAPARIN SODIUM INJ 40 MG/0.4 ML DISP.SYRIN SUBCUT SCH (10:55)
[2019-10-20] MEDS: GUAIFENESIN 600 MG TABLET.SA PO SCH ×2 (10:55→22:12)
[2019-10-20] MEDS: LEVOFLOXACIN 750 MG/D5W RTU 750 MG/150 ML RTUPB IV SCH (17:24)
--- NOTE | 2019-10-20 19:01 | PDOC PROGRESS REPORT ---
Subjective Progress Note for:: 10/20/19 Subjective:: Patient denied any chest pain. Breathing is getting better but still coughing with difficulty with expectoration. No fever or chills. No nausea, vomiting of abdominal pain. Reason For Visit: LEFT LOWER LOBE PNEUMONIA PROBABLE SEPSIS LACTIC Physical Exam Vital Signs: Temp Pulse Resp BP Pulse Ox 98.1 F 84 18 117/65 96 10/20/19 15:56 10/20/19 15:56 10/20/19 15:56 10/20/19 15:56 10/20/19 15:56 Intake & Output 10/19/19 10/20/19 10/21/19 06:59 06:59 06:59 Intake Total 2368 3290 1700 Output Total 1600 2650 675 Balance 802 499 3138 Weight 57.8 kg 56.4 kg 56.4 kg Physical Exam: General appearance: PRESENT: mild distress - on supplemental oxygen via nasal cannula., thin Head exam: PRESENT: atraumatic, normocephalic Eye exam: PRESENT: conjunctiva pink, scleral icterus Respiratory exam: PRESENT: decreased breath sounds, minimal rhonchi Cardiovascular exam: PRESENT: RRR, +S1, +S2. ABSENT: diastolic murmur, rubs, systolic murmur Vascular exam: ABSENT: pallor GI/Abdominal exam: PRESENT: normal bowel sounds, soft. ABSENT: distended, guarding, mass, organomegaly, rebound, tenderness Extremities exam: PRESENT: pedal edema Musculoskeletal exam: ABSENT: ambulatory, deformity, dislocation, full ROM, norm al inspection, tenderness, other Neurological exam: PRESENT: alert, awake, oriented to person, oriented to place, oriented to time, oriented to situation, CN II-XII grossly intact. ABSENT: motor sensory deficit Psychiatric exam: PRESENT: appropriate affect, normal mood. ABSENT: homicidal ideation, suicidal ideation Skin exam: PRESENT: dry, warm Results Laboratory Results: 10/19/19 05:29 10/19/19 05:29 10/18/19 16:35 Creatine Kinase 110 Impressions: Chest X-Ray 10/18/19 16:40 IMPRESSION: 1. Marked severe COPD. Focal opacity at the left lung base, new since the prior examination dated 05/08/2019. This finding may be on the basis of infiltrate. Small left pleural effusion Follow-up examination is suggested to document for interval resolution. Assessment & Plan - Diagnosis (1) Left lower lobe pneumonia Qualifiers: Pneumonia type: due to unspecified organism Qualified Code(s): J18.9 - Pneumonia, unspecified organism Is this a current diagnosis for this admission?: Yes (2) Lactic acidosis Is this a current diagnosis for this admission?: Yes (3) COPD (chronic obstructive pulmonary disease) Qualifiers: COPD type: unspecified COPD Is this a current diagnosis for this admission?: Yes (4) Essential hypertension Is this a current diagnosis for this admission?: Yes (5) Adult failure to thrive syndrome Is this a current diagnosis for this admission?: Yes (6) Hyperglycemia due to type 2 diabetes mellitus Qualifiers: Diabetes mellitus continuous churn buttermaker insulin use: without assisted use Qualified Code(s): E11.65 - Type 2 diabetes mellitus with hyperglycemia Is this a current diagnosis for this admission?: Yes (7) Cigarette nicotine dependence Qualifiers: Substance use status: other nicotine-induced disorder Qualified Code(s): F17.218 - Nicotine dependence, cigarettes, with other nicotine-induced disorders Is this a current diagnosis for this admission?: Yes (8) ETOH abuse Is this a current diagnosis for this admission?: Yes (9) Osteoarthritis Qualifiers: Osteoarthritis location: unspecified site Osteoarthritis type: primary Qualified Code(s): M19.91 - Primary osteoarthritis, unspecified site Is this a current diagnosis for this admission?: Yes (10) Difficulty sleeping Is this a current diagnosis for this admission?: Yes Plan: Maintain on Melatonin 10 mg po qhs prn for insomnia. - Time Time Spent with patient: 25-34 minutes Level of Care: IMCU Medications reviewed and adjusted accordingly: Yes Anticipated discharge: Home with Homehealth Within: Other - Inpatient Certification Based on my medical assessment, after consideration of the patient's comorbidities, presenting symptoms, or acuity I expect that the services needed warrant INPATIENT care.: Yes I certify that my determination is in accordance with my understanding of Medicare's requirements for reasonable and necessary INPATIENT services [42 CFR 412.3e].: Yes Medical Necessity: Significant Comorbidiites Make Outpatient Treatment Too Risky, Need Close Monitoring Due to Risk of Patient Decompensation, Need For IV Fluids, Need For Continuous Telemetry Monitoring, Need for IV Antibiotics, Risk of Complication if Not Cared For in Hospital, Risk of Diagnosis Which Will Require Inpatient Eval/Care/Monitoring Post Hospital Care: D/C Payroll Representative Documentation - Plan Summary Plan Summary: Continue current medication management. Maintain on Melatonin 10 mg po qhs prn for difficulty with sleep. Emphasized use of incentive spirometry and start use of Flutter device for pulmonary toileting and rehabilitation.
[2019-10-20] MEDS: MELATONIN 5 MG TABLET PO PRN (22:12)
[2019-10-20] MEDS: NORMAL SALINE 1000 ML 1,000 ML IV PRN (22:13)
[2019-10-21] MEDS: PANTOPRAZOLE SODIUM 40 MG TABLET.DR PO SCH (06:22)
[2019-10-21] MEDS: INSULIN LISPRO 100 UNIT/ML 3 ML VIAL SUBCUT SCH ×4 (10:15→21:32)
[2019-10-21] MEDS: ENOXAPARIN SODIUM INJ 40 MG/0.4 ML DISP.SYRIN SUBCUT SCH (10:20)
[2019-10-21] MEDS: GUAIFENESIN 600 MG TABLET.SA PO SCH ×2 (10:20→21:38)
[2019-10-21] MEDS: MULTIVITS W-MIN/IRON SOLN 60 ML PO SCH (10:20)
[2019-10-21] MEDS: NORMAL SALINE 1000 ML 1,000 ML IV PRN ×2 (10:24→17:30)
--- NOTE | 2019-10-21 12:26 | PDOC PROGRESS REPORT ---
Subjective Progress Note for:: 10/21/19 Subjective:: No chest pain or difficulty with breathing. Less coughing and improve expectoration. No fever or chills. No nausea, vomiting of abdominal pain. Reason For Visit: LEFT LOWER LOBE PNEUMONIA PROBABLE SEPSIS LACTIC Physical Exam Vital Signs: Temp Pulse Resp BP Pulse Ox 98.0 F 87 19 116/66 100 10/21/19 11:09 10/21/19 11:09 10/21/19 11:09 10/21/19 11:09 10/21/19 11:09 Intake & Output 10/20/19 10/21/19 10/22/19 06:59 06:59 06:59 Intake Total 3290 2850 2020 Output Total 2650 2900 200 Balance 640 -50 1820 Weight 56.4 kg 57 kg Physical Exam: General appearance: PRESENT: mild distress - on supplemental oxygen via nasal cannula., thin Head exam: PRESENT: atraumatic, normocephalic Eye exam: PRESENT: conjunctiva pink, scleral icterus Respiratory exam: PRESENT: decreased breath sounds Cardiovascular exam: PRESENT: RRR, +S1, +S2. ABSENT: diastolic murmur, rubs, systolic murmur GI/Abdominal exam: PRESENT: normal bowel sounds, soft. ABSENT: distended, guarding, mass, organomegaly, rebound, tenderness Extremities exam: PRESENT: pedal edema Musculoskeletal exam: ABSENT: ambulatory, deformity, dislocation, full ROM, normal inspection, tenderness, other Neurological exam: PRESENT: alert, awake, oriented to person, oriented to place, oriented to time, oriented to situation, CN II-XII grossly intact. ABSENT: motor sensory deficit Psychiatric exam: PRESENT: appropriate affect, normal mood. ABSENT: homicidal ideation, suicidal ideation Skin exam: PRESENT: dry, warm Results Laboratory Results: 10/19/19 05:29 10/19/19 05:29 10/18/19 16:35 Creatine Kinase 110 Impressions: Chest X-Ray 10/18/19 16:40 IMPRESSION: 1. Marked severe COPD. Focal opacity at the left lung base, new since the prior examination dated 05/08/2019. This finding may be on the basis of infiltrate. Small left pleural effusion Follow-up examination is suggested to document for interval resolution. Assessment & Plan - Diagnosis (1) Left lower lobe pneumonia Qualifiers: Pneumonia type: due to unspecified organism Qualified Code(s): J18.9 - Pneumonia, unspecified organism Is this a current diagnosis for this admission?: Yes (2) Lactic acidosis Is this a current diagnosis for this admission?: Yes (3) COPD (chronic obstructive pulmonary disease) Qualifiers: COPD type: unspecified COPD Is this a current diagnosis for this admission?: Yes (4) Essential hypertension Is this a current diagnosis for this admission?: Yes (5) Adult failure to thrive syndrome Is this a current diagnosis for this admission?: Yes (6) Hyperglycemia due to type 2 diabetes mellitus Qualifiers: Diabetes mellitus fdc insulin use: without fdc use Qualified C ode(s): E11.65 - Type 2 diabetes mellitus with hyperglycemia Is this a current diagnosis for this admission?: Yes (7) Cigarette nicotine dependence Qualifiers: Substance use status: other nicotine-induced disorder Qualified Code(s): F17.218 - Nicotine dependence, cigarettes, with other nicotine-induced disorders Is this a current diagnosis for this admission?: Yes (8) ETOH abuse Is this a current diagnosis for this admission?: Yes (9) Osteoarthritis Qualifiers: Osteoarthritis location: unspecified site Osteoarthritis type: primary Qualified Code(s): M19.91 - Primary osteoarthritis, unspecified site Is this a current diagnosis for this admission?: Yes (10) Difficulty sleeping Is this a current diagnosis for this admission?: Yes - Time Time Spent with patient: 25-34 minutes Level of Care: IMCU Medications reviewed and adjusted accordingly: Yes Anticipated discharge: Home with Homehealth Within: Other - Inpatient Certification Based on my medical assessment, after consideration of the patient's comorbidities, presenting symptoms, or acuity I expect that the services needed warrant INPATIENT care.: Yes I certify that my determination is in accordance with my understanding of Medicare's requirements for reasonable and necessary INPATIENT services [42 CFR 412.3e].: Yes Medical Necessity: Significant Comorbidiites Make Outpatient Treatment Too Risky, Need Close Monitoring Due to Risk of Patient Decompensation, Need For IV Fluids, Need For Continuous Telemetry Monitoring, Need for IV Antibiotics, Risk of Complication if Not Cared For in Hospital, Risk of Diagnosis Which Will Require Inpatient Eval/Care/Monitoring Post Hospital Care: D/C Arch Cushion Press Operator Documentation - Plan Summary Plan Summary: Continue current medication management. Obtain CBC with diff, BMP in am.
[2019-10-21] MEDS: LEVOFLOXACIN 750 MG/D5W RTU 750 MG/150 ML RTUPB IV SCH (17:30)
[2019-10-21] MEDS: MELATONIN 5 MG TABLET PO PRN (21:39)
[2019-10-22] MEDS: PANTOPRAZOLE SODIUM 40 MG TABLET.DR PO SCH (05:45)
[2019-10-22] MEDS: NORMAL SALINE 1000 ML 1,000 ML IV PRN ×2 (05:47→20:12)
[2019-10-22 06:42] LABS: ABSOLUTE BASOPHILS # (AUTO) 0.1 10^3/uL (0.0-0.2); ABSOLUTE EOSINOPHILS # (AUTO) 0.2 10^3/uL (0.0-0.6); ABSOLUTE LYMPHOCYTES (AUTO) 1.2 10^3/uL (0.5-4.7); ABSOLUTE MONOCYTES (AUTO) 0.6 10^3/uL (0.1-1.4); EOSINOPHILS % (AUTO) 2.6 % (0-6); HEMATOCRIT 34.1 % (37.9-51.0); HEMOGLOBIN 11.9 g/dL (13.5-17.0); LYMPHOCYTES % (AUTO) 19.5 % (13-45); MEAN CORPUSCULAR HEMOGLOBIN 33.3 pg (27.0-33.4); MEAN CORPUSCULAR HGB CONC 34.9 g/dL (32.0-36.0); MEAN CORPUSCULAR VOLUME 95 fl (80-97); MONOCYTES % (AUTO) 10.1 % (3-13); PLATELET COUNT 155 10^3/uL (150-450); RED BLOOD COUNT 3.58 10^6/uL (4.35-5.55); RED CELL DISTRIBUTION WIDTH 13.6 % (11.5-14.0); SEGMENTED NEUTROPHILS % (AUTO) 66.8 % (42-78); TOTAL CELLS COUNTED % (AUTO) 100 %; WHITE BLOOD COUNT 6.1 10^3/uL (4.0-10.5)
[2019-10-22 06:48] LABS: BLOOD UREA NITROGEN 14 mg/dL (7-20); CALCIUM 9.4 mg/dL (8.4-10.2); GLUCOSE 94 mg/dL (75-110); POTASSIUM 4.3 mmol/L (3.6-5.0)
[2019-10-22 06:53] LABS: CARBON DIOXIDE 35 mmol/L (22-30); CHLORIDE 94 mmol/L (98-107)
[2019-10-22 06:57] LABS: ANION GAP 4 (5-19)
[2019-10-22] MEDS: ENOXAPARIN SODIUM INJ 40 MG/0.4 ML DISP.SYRIN SUBCUT SCH (10:48)
[2019-10-22] MEDS: GUAIFENESIN 600 MG TABLET.SA PO SCH ×2 (10:48→21:41)
[2019-10-22] MEDS: MULTIVITS W-MIN/IRON SOLN 60 ML PO SCH (10:49)
[2019-10-22] MEDS: INSULIN LISPRO 100 UNIT/ML 3 ML VIAL SUBCUT SCH (10:50)
--- NOTE | 2019-10-22 12:45 | PDOC PROGRESS REPORT ---
Subjective Progress Note for:: 10/22/19 Subjective:: Patient categorically denied any prior history of diabetes mellitus diagnosis. He reported poor sleep since admission and requested for something stronger to assist him to sleep at night. No chest pain or difficulty with breathing. No fever or chills. No nausea, vomiting of abdominal pain. Reason For Visit: LEFT LOWER LOBE PNEUMONIA PROBABLE SEPSIS LACTIC Physical Exam Vital Signs: Temp Pulse Resp BP Pulse Ox 98.9 F 93 18 116/68 95 10/22/19 11:56 10/22/19 11:56 10/22/19 11:56 10/22/19 11:56 10/22/19 11:56 Intake & Output 10/21/19 10/22/19 10/23/19 06:59 06:59 06:59 Intake Total 2850 5060 477 Output Total 2900 3625 1000 Balance -50 1435 -523 Weight 57 kg 58 kg Physical Exam: General appearance: PRESENT: mild distress - on supplemental oxygen via nasal cannula., thin Head exam: PRESENT: atraumatic, normocephalic Eye exam: PRESENT: conjunctiva pink, BSENT: pallor, scleral icterus Respiratory exam: PRESENT: decreased breath sounds Cardiovascular exam: PRESENT: RRR, +S1, +S2. ABSENT: diastolic murmur, rubs, systolic murmur GI/Abdominal exam: PRESENT: normal bowel sounds, soft. ABSENT: distended, guarding, mass, organomegaly, rebound, tenderness Extremities exam: PRESENT: pedal edema Musculoskeletal exam: ABSENT: ambulatory, deformity, dislocation, full ROM, normal inspection, tenderness, other Neurological exam: PRESENT: alert, awake, oriented to person, oriented to place, oriented to time, oriented to situation, CN II-XII grossly intact. ABSENT: motor sensory deficit Psychiatric exam: PRESENT: appropriate affect, normal mood. ABSENT: homicidal ideation, suicidal ideation Skin exam: PRESENT: dry, warm Results Laboratory Results: 10/22/19 06:09 10/22/19 06:10/22/19 10/22/19 06:09 06:09 WBC 6.1 RBC 3.58 L Hgb 11.9 L Hct 34.1 L MCV 95 MCH 33.3 MCHC 34.9 RDW 13.6 Plt Count 155 Seg Neutrophils % 66.8 Sodium 132.7 L Potassium 4.3 Chloride 94 L Carbon Dioxide 35 H Anion Gap 4 L BUN 14 Creatinine 0.58 Est GFR ( Amer) > 60 Glucose 94 Calcium 9.4 10/18/19 16:35 Creatine Kinase 110 Impressions: Chest X-Ray 10/18/19 16:40 IMPRESSION: 1. Marked severe COPD. Focal opacity at the left lung base, new since the prior examination dated 05/08/2019. This finding may be on the basis of infiltrate. Small left pleural effusion Follow-up examination is suggested to document for interval resolution. Assessment & Plan - Diagnosis (1) Left lower lobe pneumonia Qualifiers: Pneumonia type: due to unspecified organism Qualified Code(s): J18.9 - Pneumonia, unspecified organism Is this a current diagnosis for this admission?: Yes (2) Lactic acidosis Is this a current diagnosis for this admission?: Yes (3) COPD (chronic obstructive pulmonary disease) Qualifiers: COPD type: unspecified COPD Is this a current diagnosis for this admission?: Yes (4) Essential hypertension Is this a current diagnosis for this admission?: Yes (5) Adult failure to thrive syndrome Is this a current diagnosis for this admission?: Yes (6) Hyperglycemia due to type 2 diabetes mellitus Qualifiers: Diabetes mellitus halfway insulin use: without halfway use Qualified Code(s): E11.65 - Type 2 diabetes mellitus with hyperglycemia Is this a current diagnosis for this admission?: Yes (7) Cigarette nicotine dependence Qualifiers: Substance use status: other nicotine-induced disorder Qualified Code(s): F17.218 - Nicotine dependence, cigarettes, with other nicotine-induced disorders Is this a current diagnosis for this admission?: Yes (8) ETOH abuse Is this a current diagnosis for this admission?: Yes (9) Osteoarthritis Qualifiers: Osteoarthritis location: unspecified site Osteoarthritis type: primary Qualified Code(s): M19.91 - Primary osteoarthritis, unspecified site Is this a current diagnosis for this admission?: Yes (10) Difficulty sleeping Is this a current diagnosis for this admission?: Yes - Time Time Spent with patient: 25-34 minutes Level of Care: IMCU Medications reviewed and adjusted accordingly: Yes Anticipated discharge: Home Within: Other - Inpatient Certification Based on my medical assessment, after consideration of the patient's comorbidities, presenting symptoms, or acuity I expect that the services needed warrant INPATIENT care.: Yes I certify that my determination is in accordance with my understanding of Medicare's requirements for reasonable and necessary INPATIENT services [42 CFR 412.3e].: Yes Medical Necessity: Significant Comorbidiites Make Outpatient Treatment Too R isky, Need Close Monitoring Due to Risk of Patient Decompensation, Need For IV Fluids, Need For Continuous Telemetry Monitoring, Need for IV Antibiotics, Risk of Complication if Not Cared For in Hospital, Risk of Diagnosis Which Will Require Inpatient Eval/Care/Monitoring Post Hospital Care: D/C Store Operations Manager Documentation - Plan Summary Plan Summary: D/C Melatonin. Start on Zolpidem 5 mg po qhs. D/C accuchek monitoring. Maintain on all other current medication management.
[2019-10-22] MEDS: LEVOFLOXACIN 750 MG/D5W RTU 750 MG/150 ML RTUPB IV SCH (17:48)
[2019-10-22] MEDS: ZOLPIDEM TARTRATE 5 MG TABLET PO PRN (21:41)
[2019-10-23] MEDS: PANTOPRAZOLE SODIUM 40 MG TABLET.DR PO SCH (05:53)
[2019-10-23] MEDS: NORMAL SALINE 1000 ML 1,000 ML IV PRN ×2 (05:53→17:01)
[2019-10-23] MEDS: GUAIFENESIN 600 MG TABLET.SA PO SCH ×2 (09:56→21:20)
[2019-10-23] MEDS: ENOXAPARIN SODIUM INJ 40 MG/0.4 ML DISP.SYRIN SUBCUT SCH (09:56)
[2019-10-23] MEDS: MULTIVITS W-MIN/IRON SOLN 60 ML PO SCH (09:56)
[2019-10-23] MEDS: LEVOFLOXACIN 750 MG/D5W RTU 750 MG/150 ML RTUPB IV SCH (17:00)
--- NOTE | 2019-10-23 19:35 | PDOC PROGRESS REPORT ---
Subjective Progress Note for:: 10/23/19 Subjective:: Patient denied chest pain or difficulty with breathing. No fever or chills. No nausea, vomiting of abdominal pain. Reason For Visit: LEFT LOWER LOBE PNEUMONIA PROBABLE SEPSIS LACTIC Physical Exam Vital Signs: Temp Pulse Resp BP Pulse Ox 98.1 F 100 16 137/59 H 99 10/23/19 04:03 10/23/19 04:03 10/23/19 04:03 10/23/19 04:03 10/23/19 10:24 Intake & Output 10/22/19 10/23/19 10/24/19 06:59 06:59 06:59 Intake Total 5060 3645 Output Total 3625 4575 Balance 1435 -930 Weight 58 kg 56.9 kg Physical Exam: General appearance: PRESENT: mild distress - on supplemental oxygen via nasal cannula., thin Head exam: PRESENT: atraumatic, normocephalic Eye exam: PRESENT: conjunctiva pink, ABSENT: pallor, scleral icterus Respiratory exam: PRESENT: decreased breath sounds Cardiovascular exam: PRESENT: RRR, +S1, +S2. ABSENT: diastolic murmur, rubs, systolic murmur GI/Abdominal exam: PRESENT: normal bowel sounds, soft. ABSENT: distended, guarding, mass, organomegaly, rebound, tenderness Extremities exam: PRESENT: pedal edema Musculoskeletal exam: ABSENT: ambulatory, deformity, dislocation, full ROM, normal inspection, tenderness, other Neurological exam: PRESENT: alert, awake, oriented to person, oriented to place, oriented to time, oriented to situation, CN II-XII grossly intact. ABSENT: motor sensory deficit Psychiatric exam: PRESENT: appropriate affect, normal mood. ABSENT: homicidal ideation, suicidal ideation Skin exam: PRESENT: dry, warm Results Laboratory Results: 10/22/19 06:09 10/22/19 06:09 10/18/19 16:35 Creatine Kinase 110 Impressions: Chest X-Ray 10/18/19 16:40 IMPRESSION: 1. Marked severe COPD. Focal opacity at the left lung base, new since the prior examination dated 05/08/2019. This finding may be on the basis of infiltrate. Small left pleural effusion Follow-up examination is suggested to document for interval resolution. Assessment & Plan - Diagnosis (1) Left lower lobe pneumonia Qualifiers: Pneumonia type: due to unspecified organism Qualified Code(s): J18.9 - Pneumonia, unspecified organism Is this a current diagnosis for this admission?: Yes (2) Lactic acidosis Is this a current diagnosis for this admission?: Yes (3) COPD (chronic obstructive pulmonary disease) Qualifiers: COPD type: unspecified COPD Qualified Code(s): J44.9 - Chronic obstructive pulmonary disease, unspecified Is this a current diagnosis for this admission?: Yes (4) Essential hypertension Is this a current diagnosis for this admission?: Yes (5) Adult failure to thrive syndrome Is this a current diagnosis for this admission?: Yes (6) Hyperglycemia due to type 2 diabetes mellitus Qualifiers: Diabetes mellitus exterminator helper insulin use: without exterminator helper use Qualified Code(s): E11.65 - Type 2 diabetes mellitus with hyperglycemia Is this a current diagnosis for this admission?: Yes (7) Cigarette nicotine dependence Qualifiers: Substance use status: other nicotine-induced disorder Qualified Code(s): F17.218 - Nicotine dependence, cigarettes, with other nicotine-induced disorders Is this a current diagnosis for this admission?: Yes (8) ETOH abuse Is this a current diagnosis for this admission?: Yes (9) Osteoarthritis Qualifiers: Osteoarthritis location: unspecified site Osteoarthritis type: primary Qualified Code(s): M19.91 - Primary osteoarthritis, unspecified site Is this a current diagnosis for this admission?: Yes (10) Difficulty sleeping Is this a current diagnosis for this admission?: Yes - Time Time Spent with patient: 25-34 minutes Level of Care: IMCU Medications reviewed and adjusted accordingly: Yes Anticipated discharge: SNF Within: Other - Inpatient Certification Based on my medical assessment, after consideration of the patient's co morbidities, presenting symptoms, or acuity I expect that the services needed warrant INPATIENT care.: Yes I certify that my determination is in accordance with my understanding of Medicare's requirements for reasonable and necessary INPATIENT services [42 CFR 412.3e].: Yes Medical Necessity: Significant Comorbidiites Make Outpatient Treatment Too Risky, Need Close Monitoring Due to Risk of Patient Decompensation, Need For IV Fluids, Need For Continuous Telemetry Monitoring, Need for IV Antibiotics, Risk of Complication if Not Cared For in Hospital, Risk of Diagnosis Which Will Require Inpatient Eval/Care/Monitoring - Plan Summary Plan Summary: Continue current medication management. Possible discharge tomorrow was discussed with patient during my bedside visit.
[2019-10-23] MEDS: ZOLPIDEM TARTRATE 5 MG TABLET PO PRN (21:20)
[2019-10-24] MEDS: NORMAL SALINE 1000 ML 1,000 ML IV PRN (04:15)
[2019-10-24] MEDS: PANTOPRAZOLE SODIUM 40 MG TABLET.DR PO SCH (06:21)
--- NOTE | 2019-10-24 08:26 | PDOC DISCHARGE SUMMARY ---
Impression - Admit/DC Date/PCP Admission Date/Primary Care Provider: 10/18/19 18:17 BRITNI CHANDRA Discharge Date: 10/24/19 - Discharge Diagnosis (1) Left lower lobe pneumonia Is this a current diagnosis for this admission?: Yes (2) Lactic acidosis Is this a current diagnosis for this admission?: Yes (3) COPD (chronic obstructive pulmonary disease) Is this a current diagnosis for this admission?: Yes (4) Essential hypertension Is this a current diagnosis for this admission?: Yes (5) Adult failure to thrive syndrome Is this a current diagnosis for this admission?: Yes (6) Cigarette nicotine dependence Is this a current diagnosis for this admission?: Yes (7) ETOH abuse Is this a current diagnosis for this admission?: Yes (8) Osteoarthritis Is this a current diagnosis for this admission?: Yes (9) Difficulty sleeping Is this a current diagnosis for this admission?: Yes - Assessment Summary: Patient presented with worsening difficulty breathing, cough, generalized weakness, nausea, and vomiting. His evaluation with chest X ray revealed left lower lobe pneumonia. His serum lactic acid was significantly elevated. His blood culture was no growth after 5 days of incubation. he was management with IV fluid support, antitussive, bronchodilator, and IV levofloxacin with resolution of his symptoms and overall improvement in his health status. he will be discharged home today. he will follow up in the offi as instructed upon discharge. of note, he is a very noncompliant patient with regard to medical treatment follow up, continue to smoke cigarette and drink alcohol. He is high risk for readmission. - Additional Information Resuscitation Status: Full Code Discharge Diet: As Tolerated Discharge Activity: Activity As Tolerated Referrals: BRITNI CHANDRA MD [Primary Care Provider] - 10/30/19 10:00 am Prescriptions: Albuterol Sulfate [Proair HFA Inhalation Aerosol 8.5 gm MDI] 2 puff IH Q4HP PRN #1 PRN Reason: WHEEZING Home Medications: Albuterol Sulfate [Proair HFA Inhalation Aerosol 8.5 gm MDI] 2 puff IH Q4HP PRN #1 10/24/19 History of Present Illiness History of Present Illness: NICOLA LOUIS is a 59 year old male patient known to my practice, very noncompliant with medical follow up, presented to the ED with complain of worsening shortness of breath, coughing, nausea, vomiting, generalized weakness and ill feeling. He denied definite fever but admitted to feeling sweaty and chills. He continue to drink alcohol heavily and smoke cigarette. He claimed compliance with his medication. he reported fair appetite and oral intake but his recent illness have limited his food and fluid intake due to subsequent vomiting. His initial ED evaluation was significant severely elevated serum lactic acid level and his chest X ray was suggestive of pneumonia. His morbidities is as listed below. Hospital Course Hospital Course: Patient presented with worsening difficulty breathing, cough, generalized weakness, nausea, and vomiting. His evaluation with chest X ray revealed left lower lobe pneumonia. His serum lactic acid was significantly elevated. His blood culture was no growth after 5 days of incubation. he was management with IV fluid support, antitussive, bronchodilator, and IV levofloxacin with resolution of his symptoms and overall improvement in his health status. he will be discharged home today. he will follow up in the offi as instructed upon discharge. of note, he is a very noncompliant patient with regard to medical treatment follow up, continue to smoke cigarette and drink alcohol. He is high risk for readmission. Physical Exam Vital Signs: Temp Pulse Resp BP Pulse Ox 97.9 F 89 19 111/63 100 10/24/19 04:16 10/24/19 04:16 10/24/19 04:16 10/24/19 04:16 10/24/19 04:16 Intake & Output 10/23/19 10/24/19 10/25/19 06:59 06:59 06:59 Intake Total 3645 4390 Output Total 4575 3200 Balance -930 1190 Weight 56.9 kg 57.9 kg General appearance: PRESENT: No acute distress, thin Head exam: PRESENT: atraumatic, normocephalic Eye exam: PRESENT: conjunctiva pink, ABSENT: pallor, scleral icterus Respiratory exam: PRESENT: decreased breath sounds Cardiovascular exam: PRESENT: RRR, +S1, +S2. ABSENT: diastolic murmur, rubs, systolic murmur GI/Abdominal exam: PRESENT: normal bowel sounds, soft. ABSENT: distended, guarding, mass, organomegaly, rebound, tenderness Extremities exam: PRESENT: pedal edema Musculoskeletal exam: ABSENT: ambulatory, deformity, dislocation, full ROM, normal inspection, tenderness, other Neurological exam: PRESENT: alert, awake, oriented to person, oriented to place, oriented to time, oriented to situation, CN II-XII grossly intact. ABSENT: motor sensory deficit Psychiatric exam: PRESENT: appropriate affect, normal mood. ABSENT: homicidal ideation, suicidal ideation Skin exam: PRESENT: dry, warm Results Laboratory Results: WBC 6.1 10^3/uL (4.0-10.5) 10/22/19 06:09 RBC 3.58 10^6/uL (4.35-5.55) L 10/22/19 06:09 Hgb 11.9 g/dL (13.5-17.0) L 10/22/19 06:09 Hct 34.1 % (37.9-51.0) L 10/22/19 06:09 MCV 95 fl (80-97) 10/22/19 06:09 MCH 33.3 pg (27.0-33.4) 10/22/19 06:09 MCHC 34.9 g/dL (32.0-36.0) 10/22/19 06:09 RDW 13.6 % (11.5-14.0) 10/22/19 06:09 Plt Count 155 10^3/uL (150-450) 10/22/19 06:09 Lymph % (Auto) 19.5 % (13-45) 10/22/19 06:09 [place] % (Auto) 10.1 % (3-13) 10/22/19 06:09 Eos % (Auto) 2.6 % (0-6) 10/22/19 06:09 Baso % (Auto) 1.0 % (0-2) 10/22/19 06:09 Absolute Neuts (auto) 4.0 10^3/uL (1.7-8.2) 10/22/19 06:09 Absolute Lymphs (auto) 1.2 10^3/uL (0.5-4.7) 10/22/19 06:09 Absolute Monos (auto) 0.6 10^3/uL (0.1-1.4) 10/22/19 06:09 Absolute Eos (auto) 0.2 10^3/uL (0.0-0.6) 10/22/19 06:09 Absolute Basos (auto) 0.1 10^3/uL (0.0-0.2) 10/22/19 06:09 Seg Neutrophils % 66.8 % (42-78) 10/22/19 06:09 VBG pH 7.46 (7.30-7.42) H 10/18/19 16:35 VBG pCO2 39.1 mmHg (35-63) 10/18/19 16:35 VBG HCO3 26.9 mmol/L (20-32) 10/18/19 16:35 VBG Base Excess 2.9 mmol/L 10/18/19 16:35 Sodium 132.7 mmol/L (137-145) L 10/22/19 06:09 Potassium 4.3 mmol/L (3.6-5.0) 10/22/19 06:09 Chloride 94 mmol/L (98-107) L 10/22/19 06:09 Carbon Dioxide 35 mmol/L (22-30) H 10/22/19 06:09 Anion Gap 4 (5-19) L 10/22/19 06:09 BUN 14 mg/dL (7-20) 10/22/19 06:09 Creatinine 0.58 mg/dL (0.52-1.25) 10/22/19 06:09 Est GFR ( Amer) > 60 (>60) 10/22/19 06:09 Est GFR (MDRD) Non-Af > 60 (>60) 10/22/19 06:09 Glucose 94 mg/dL (75-110) 10/22/19 06:09 POC Glucose 100 mg/dL (70-110) 10/23/19 16:46 Hemoglobin A1c % 4.8 % (4.7-6.0) 10/18/19 23:22 Lactic Acid 6.3 mmol/L (0.7-2.1) H 10/18/19 16:35 Calcium 9.4 mg/dL (8.4-10.2) 10/22/19 06:09 Total Bilirubin 1.3 mg/dL (0.2-1.3) 10/19/19 05:29 Direct Bilirubin 0.0 mg/dL (0.0-0.4) 10/19/19 05:29 Neonat Total Bilirubin Not Reportable 10/19/19 05:29 Neonat Direct Bilirubin Not Reportable 10/19/19 05:29 Neonat Indirect Bili Not Reportable 10/19/19 05:29 AST 31 U/L (17-59) 10/19/19 05:29 ALT 9 U/L (<50) 10/19/19 05:29 Alkaline Phosphatase 64 U/L (38-126) 10/19/19 05:29 Creatine Kinase 110 U/L (55-170) 10/18/19 16:35 Total Protein 7.3 g/dL (6.3-8.2) 10/19/19 05:29 Albumin 4.1 g/dL (3.5-5.0) 10/19/19 05:29 Triglycerides 60 mg/dL (<150) 10/18/19 23:22 Cholesterol 138.84 mg/dL (0-200) 10/18/19 23:22 LDL Cholesterol Direct 44 mg/dL (<100) 10/18/19 23:22 VLDL Cholesterol 12.0 mg/dL (10-31) 10/18/19 23:22 HDL Cholesterol 82 mg/dL (>40) 10/18/19 23:22 Urine Color YELLOW 10/18/19 17:35 Urine Appearance CLEAR 10/18/19 17:35 Urine pH 6.0 (5.0-9.0) 10/18/19 17:35 Ur Specific [place] 1.026 10/18/19 17:35 Urine Protein 30 mg/dL (NEGATIVE) H 10/18/19 17:35 Urine Glucose (UA) NEGATIVE mg/dL (NEGATIVE) 10/18/19 17:35 Urine Ketones NEGATIVE mg/dL (NEGATIVE) 10/18/19 17:35 Urine Blood SMALL (NEGATIVE) H 10/18/19 17:35 Urine Nitrite NEGATIVE (NEGATIVE) 10/18/19 17:35 Urine Bilirubin NEGATIVE (NEGATIVE) 10/18/19 17:35 Urine Urobilinogen 4.0 mg/dL (<2.0) H 10/18/19 17:35 Ur Leukocyte Esterase NEGATIVE (NEGATIVE) 10/18/19 17:35 Urine WBC (Auto) 1 /HPF 10/18/19 17:35 Urine RBC (Auto) 2 /HPF 10/18/19 17:35 Urine Mucus (Auto) FEW /LPF 10/18/19 17:35 Urine Ascorbic Acid NEGATIVE (NEGATIVE) 10/18/19 17:35 Impressions: Chest X-Ray 10/18/19 16:40 IMPRESSION: 1. Marked severe COPD. Focal opacity at the left lung base, new since the prior examination dated 05/08/2019. This finding may be on the basis of infiltrate. Small left pleural effusion Follow-up examination is suggested to document for interval resolution. Plan Health Concerns: Noncompliance with medical management, alcohol abuse and cigarette smoking in view of his morbidities. Plan of Treatment: Close follow up on outpatient. Goals: Reduce readmission risk level. Stroke Is this a Stroke Patient?: No Acute Heart Failure - Is this a Heart Failure Patient?: No
[2019-10-24 08:29] VITALS: BP 112/67
[2019-10-24] MEDS: GUAIFENESIN 600 MG TABLET.SA PO SCH (09:20)
[2019-10-24] MEDS: MULTIVITS W-MIN/IRON SOLN 60 ML PO SCH (09:20)
[2019-10-24] MEDS: ENOXAPARIN SODIUM INJ 40 MG/0.4 ML DISP.SYRIN SUBCUT SCH (09:20)
== END 2019-10-24 11:15 | disposition home or self-care (01) | DRG 194 ==
LOC: ER 16:28 → EH 18:17 → 3W 20:35
PROVIDERS: ADMIT Internal Medicine Geriatric Medicine; ATTEND Internal Medicine Geriatric Medicine
DX: J18.9 Pneumonia, unspecified organism (principal); E87.2 Acidosis; Z68.1 Body mass index [BMI] 19.9 or less, adult; J44.9 Chronic obstructive pulmonary disease, unspecified; I10 Essential (primary) hypertension; R62.7 Adult failure to thrive; E11.65 Type 2 diabetes mellitus with hyperglycemia; M19.91 Primary osteoarthritis, unspecified site; F17.218 Nicotine dependence, cigarettes, with other nicotine-induced disorders; F10.10 Alcohol abuse, uncomplicated; Y90.9 Presence of alcohol in blood, level not specified; Z91.19 Patient's noncompliance with other medical treatment and regimen
CPT/HCPCS: 36415; 71045; 80048; 80053; 80061; 81001; 82550; 82803; 82962; 83036; 83605; 85025; 87040; 87150; 94667; 94668; 94799; 99285; J1650; J1956; J3490; J7030; J7120

== ENCOUNTER 2020-05-22 05:25 | Emergency (ER) | payer MEDICARE, MEDICAID ==
[2020-05-22 06:36] LABS: ABSOLUTE BASOPHILS # (AUTO) 0.1 10^3/uL (0.0-0.2); ABSOLUTE EOSINOPHILS # (AUTO) 0.1 10^3/uL (0.0-0.6); ABSOLUTE LYMPHOCYTES (AUTO) 0.9 10^3/uL (0.5-4.7); ABSOLUTE MONOCYTES (AUTO) 0.4 10^3/uL (0.1-1.4); ABSOLUTE NEUT (AUTO) 4.7 10^3/uL (1.7-8.2); BASOPHILS % (AUTO) 0.8 % (0-2); EOSINOPHILS % (AUTO) 1.4 % (0-6); HEMOGLOBIN 12.3 g/dL (13.5-17.0); LYMPHOCYTES % (AUTO) 14.7 % (13-45); MEAN CORPUSCULAR HEMOGLOBIN 32.8 pg (27.0-33.4); MEAN CORPUSCULAR HGB CONC 34.3 g/dL (32.0-36.0); MEAN CORPUSCULAR VOLUME 96 fl (80-97); MONOCYTES % (AUTO) 6.6 % (3-13); PLATELET COUNT 188 10^3/uL (150-450); RED BLOOD COUNT 3.76 10^6/uL (4.35-5.55); SEGMENTED NEUTROPHILS % (AUTO) 76.5 % (42-78); TOTAL CELLS COUNTED % (AUTO) 100 %; WHITE BLOOD COUNT 6.1 10^3/uL (4.0-10.5)
[2020-05-22 06:52] LABS: ALBUMIN 4.2 g/dL (3.5-5.0); ALKALINE PHOSPHATASE 61 U/L (38-126); ASPARTATE AMINO TRANSFERASE 45 U/L (17-59); BILIRUBIN,DIRECT 0.3 mg/dL (0.0-0.4); BILIRUBIN,TOTAL 0.8 mg/dL (0.2-1.3); BLOOD UREA NITROGEN 12 mg/dL (7-20); CALCIUM 8.8 mg/dL (8.4-10.2); CARBON DIOXIDE 37 mmol/L (22-30); CHLORIDE 97 mmol/L (98-107); GLUCOSE 90 mg/dL (75-110); POTASSIUM 3.8 mmol/L (3.6-5.0); TOTAL PROTEIN 7.7 g/dL (6.3-8.2)
[2020-05-22 06:59] LABS: ANION GAP 5 (5-19)
--- NOTE | 2020-05-22 07:01 | RADIOLOGY REPORT (SQ) ---
CLINICAL HISTORY: SOB COMPARISON: 10/18/2019. TECHNIQUE: XR CHEST 1 VIEW 05/22/2020 5:43 AM AUTOMOTIVE POWER ELECTRONICS ENGINEER FINDINGS: Cardiac silhouette is normal in size. Lungs hyperinflated due to emphysema. There is no pleural effusion. There is no pneumothorax. There are no acute osseous findings. IMPRESSION: No pneumonia.
[2020-05-22] MEDS ORDERED: IPRATROPIUM/ALBUTEROL 0.5-2.5 MG/3 ML AMPUL NEB ONE (07:29)
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
[2020-05-22 08:27] LABS: APPEARANCE,URINE CLEAR; BILIRUBIN,URINE NEGATIVE (NEGATIVE); COLOR,URINE YELLOW; GLUCOSE, URINE NEGATIVE (NEGATIVE); KETONES,URINE NEGATIVE (NEGATIVE); LEUKOCYTE ESTERASE,URINE NEGATIVE (NEGATIVE); NITRITE,URINE NEGATIVE (NEGATIVE); PROTEIN,URINE 30 mg/dL (NEGATIVE); URINE SPECIFIC GRAVITY 1.019
[2020-05-22 10:07] VITALS: BP 134/78
[2020-05-22] MEDS ORDERED: ALBUTEROL SULFATE HFA (90 MCG/PUFF) 8 GM MDI (1 MDI/ER DISP) IH ONE (10:15)
--- NOTE | 2020-05-22 23:38 | EKG REPORT ---
SEVERITY:- ABNORMAL ECG - SINUS RHYTHM BIATRIAL ABNORMALITIES BORDERLINE RIGHT AXIS DEVIATION ABNORMAL T, CONSIDER ISCHEMIA, ANTERIOR LEADS BORDERLINE PROLONGED QT INTERVAL : Confirmed by: Rochelle Clark 22-May-2020 23:37:51
== END 2020-05-22 10:25 | disposition home or self-care (01) ==
LOC: ER 05:25
DX: J44.1 Chronic obstructive pulmonary disease with (acute) exacerbation (principal); F17.219 Nicotine dependence, cigarettes, with unspecified nicotine-induced disorders; Z20.822 Contact with and (suspected) exposure to COVID-19; I10 Essential (primary) hypertension; E11.9 Type 2 diabetes mellitus without complications
CPT/HCPCS: 99285; 93005; 94640; 36415; 82728; 83615; 85025; 85652; 0202U ×23; 80053; 81001; 71045; 93010; A9270; J3490

== ENCOUNTER 2020-06-10 20:51 | Emergency (ER) | payer MEDICAID, MEDICARE ==
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
--- NOTE | 2020-06-10 23:49 | RADIOLOGY REPORT (SQ) ---
CHEST X-RAY 1 VIEW on 06/10/2020 at 11:11 PM CLINICAL INDICATION: Cough COMPARISON: 05/22/2020 FINDINGS: Mild vascular calcification is noted in the aorta. Emphysematous changes of the lungs are noted. The lungs are otherwise clear. Cardiac, hilar and mediastinal contours are within normal limits. Pulmonary vascularity is within normal limits. IMPRESSION: Emphysema with no acute disease.
[2020-06-11 02:29] LABS: APPEARANCE,URINE CLEAR; BILIRUBIN,URINE NEGATIVE (NEGATIVE); COLOR,URINE YELLOW; GLUCOSE, URINE 50 mg/dL (NEGATIVE); KETONES,URINE 20 mg/dL (NEGATIVE); LEUKOCYTE ESTERASE,URINE NEGATIVE (NEGATIVE); NITRITE,URINE NEGATIVE (NEGATIVE); PROTEIN,URINE 30 mg/dL (NEGATIVE); URINE SPECIFIC GRAVITY 1.026
--- NOTE | 2020-06-11 02:29 | RADIOLOGY REPORT (SQ) ---
Bilateral knee x-ray two views on 06/11/2020 at 1:29 AM CLINICAL INDICATION: Bilateral knee pain COMPARISON: None FINDINGS: Right knee: Vascular calcifications are noted. No joint effusion is noted. There are no fractures. Visualized joints are well aligned. Left knee: Vascular calcifications are noted. No joint effusion is noted. There are no fractures. Visualized joints are well aligned. IMPRESSION: No acute bony abnormality within either knee.
[2020-06-11 02:36] LABS: HEMATOCRIT 39.7 % (37.9-51.0); HEMOGLOBIN 13.4 g/dL (13.5-17.0); MEAN CORPUSCULAR HEMOGLOBIN 32.7 pg (27.0-33.4); MEAN CORPUSCULAR HGB CONC 33.7 g/dL (32.0-36.0); MEAN CORPUSCULAR VOLUME 97 fl (80-97); RED BLOOD COUNT 4.09 10^6/uL (4.35-5.55); WHITE BLOOD COUNT 6.9 10^3/uL (4.0-10.5)
[2020-06-11 02:52] LABS: ALBUMIN 4.3 g/dL (3.5-5.0); ALKALINE PHOSPHATASE 67 U/L (38-126); ANION GAP 18 (5-19); ASPARTATE AMINO TRANSFERASE 220 U/L (17-59); BILIRUBIN,DIRECT 0.2 mg/dL (0.0-0.4); BILIRUBIN,TOTAL 0.8 mg/dL (0.2-1.3); BLOOD UREA NITROGEN 18 mg/dL (7-20); CARBON DIOXIDE 26 mmol/L (22-30); CHLORIDE 92 mmol/L (98-107); GLUCOSE 284 mg/dL (75-110); POTASSIUM 4.8 mmol/L (3.6-5.0); TOTAL PROTEIN 7.2 g/dL (6.3-8.2)
[2020-06-11 02:53] LABS: ABSOLUTE LYMPHOCYTES# (MANUAL) 0.3 10^3/uL (0.5-4.7); ABSOLUTE MONOCYTES # (MANUAL) 0.1 10^3/uL (0.1-1.4); BASOPHILS % (MANUAL) 0 % (0-2); EOSINOPHILS % (MANUAL) 0 % (0-6); LYMPHOCYTES % (MANUAL) 4 % (13-45); MONOCYTES % (MANUAL) 1 % (3-13); SEGMENTED NEUTROPHILS % (MAN) 95 % (42-78); TOTAL CELLS COUNTED 100
[2020-06-11 02:55] LABS: PLATELET CLUMPS PRESENT; PLATELET COMMENT ADEQUATE; PLATELET COUNT 152 10^3/uL (150-450)
[2020-06-11 03:10] LABS: NT PRO BNP 24 pg/mL (<125)
[2020-06-11 03:16] LABS: TROPONIN I < 0.012 ng/mL
[2020-06-11 06:05] VITALS: BP 157/84
--- NOTE | 2020-06-11 09:23 | EKG REPORT ---
SEVERITY:- ABNORMAL ECG - SINUS TACHYCARDIA BORDERLINE RIGHT AXIS DEVIATION BIATRIAL ABNORMALITIES : Confirmed by: Lewis Harry MD 11-Jun-2020 09:23:14
== END 2020-06-11 06:15 | disposition home or self-care (01) ==
LOC: ER 20:51
DX: J43.9 Emphysema, unspecified (principal); J41.0 Simple chronic bronchitis; F10.10 Alcohol abuse, uncomplicated; E11.65 Type 2 diabetes mellitus with hyperglycemia; F17.218 Nicotine dependence, cigarettes, with other nicotine-induced disorders; R07.9 Chest pain, unspecified; M25.561 Pain in right knee; M25.562 Pain in left knee; R06.02 Shortness of breath; I10 Essential (primary) hypertension; Z88.0 Allergy status to penicillin; Z87.01 Personal history of pneumonia (recurrent)
CPT/HCPCS: 36415; 71045; 80053; 80307; 81001; 83880; 84484; 85025; 93005; 93010; 99285